=== PATIENT | female | born 1970 | race Caucasian/White ===

== ENCOUNTER 2019-11-03 18:59 | Inpatient (IN) | payer MEDICAID, SELFPAY | END 2019-11-08 12:01 | disposition home or self-care (01) | DRG 280 | PROVIDERS: Admitting Provider Internal Medicine; Emergency Provider Emergency Medicine; Family Provider Nurse Practitioner; Visit Provider Student in an Organized Health Care Education/Training Program | DX: I21.4 Non-ST elevation (NSTEMI) myocardial infarction (principal); I50.33 Acute on chronic diastolic (congestive) heart failure; J96.01 Acute respiratory failure with hypoxia; I16.1 Hypertensive emergency; E87.2 Acidosis; M31.9 Necrotizing vasculopathy, unspecified; I11.0 Hypertensive heart disease with heart failure; F32.9 Major depressive disorder, single episode, unspecified; I70.1 Atherosclerosis of renal artery; E87.5 Hyperkalemia; I73.9 Peripheral vascular disease, unspecified; I25.10 Atherosclerotic heart disease of native coronary artery without angina pectoris; Z23 Encounter for immunization ==

== ENCOUNTER → 2019-11-20 10:39 | Outpatient (BNVA) | payer MEDICAID, SELFPAY | PROVIDERS: Family Provider Nurse Practitioner; PCP Nurse Practitioner; Referring Provider Nurse Practitioner; Visit Provider Nurse Practitioner | DX: I50.33 Acute on chronic diastolic (congestive) heart failure (principal); F41.9 Anxiety disorder, unspecified; F32.9 Major depressive disorder, single episode, unspecified | CPT/HCPCS: 80048 ==

== ENCOUNTER → 2019-11-24 09:02 | Outpatient (BNVA) | payer MEDICAID, SELFPAY | PROVIDERS: Family Provider Nurse Practitioner; PCP Nurse Practitioner; Referring Provider Nurse Practitioner; Visit Provider Internal Medicine Rheumatology | DX: I25.10 Atherosclerotic heart disease of native coronary artery without angina pectoris (principal); Z79.899 Other long term (current) drug therapy; Z11.59 Encounter for screening for other viral diseases; I65.23 Occlusion and stenosis of bilateral carotid arteries; I70.0 Atherosclerosis of aorta; I70.211 Atherosclerosis of native arteries of extremities with intermittent claudication, right leg; K55.069 Acute infarction of intestine, part and extent unspecified | CPT/HCPCS: 36415; 81001; 82570; 83516; 84156; 85651; 86140; 86160; 86235; 86431; 86480; 86704; 86803; 87340; 99205 ==

== ENCOUNTER 2024-06-19 15:46 | Inpatient (IN) | payer MEDICAID, SELFPAY ==
[2024-06-19] VITALS (47 sets, daily range): BP systolic 96–253; BP diastolic 56–110; PULSE 87–169; RESP 10–30; TEMP 36–36.9; O2SAT 90–100; BMI 17.7
--- NOTE | 2024-06-19 16:00 | XRR_ITS ---
PROCEDURE INFORMATION: Exam: XR Chest Exam date and time: 06/19/2024 4:39 PM Age: 54 years old Clinical indication: Pain; Shortness of breath; Chest pressure; Additional info: Chest pain TECHNIQUE: Imaging protocol: Radiologic exam of the chest. Views: 1 view. COMPARISON: CR XR chest 1V [id number] 11/03/2019 7:08 PM FINDINGS: Lungs: Unremarkable. No consolidation. Pleural spaces: Unremarkable. No pleural effusion. No pneumothorax. Heart/Mediastinum: Unremarkable. No cardiomegaly. Bones/joints: [place] rightward midthoracic curvature. XR/XR chest 1V portable [id number] IMPRESSION: No acute findings.
--- NOTE | 2024-06-19 16:02 | ECG_ITS ---
[facility] Test Date: 2024-06-19 Pat Name: Anjali Murrell Department: Room: Gender: Female Accounting Auditor: : 1970 Requested By: Chica Hull Order Number: [id number] Prakash MD: Jose Manuel Brar M.D. Measurements Intervals [place] Rate: 91 P: 5 CO: 156 QRS: 93 QRSD: 86 T: 215 QT: 341 QTc: 421 Interpretive Statements SINUS RHYTHM BORDERLINE RIGHT AXIS DEVIATION [QRS AXIS > 90] ST DEVIATION AND MODERATE T-WAVE ABNORMALITY, CONSIDER ANTEROLATERAL ISCHEMIA [-0.1+ mV T-WAVE IN V3-V6] ST DEVIATION AND MODERATE T-WAVE ABNORMALITY, CONSIDER INFERIOR ISCHEMIA [-0.1+ mV T-WAVE IN II/aVF] Compared to ECG 11/07/2019 16:24:18 Atrial abnormality no longer present Incomplete right bundle-branch block no longer present T-wave abnormality still present Possible ischemia still present Electronically Signed On 06-19-2024 18:37:10 CDT by Jose Manuel Brar M.D. [email or web address].[email or web address]/store/[id number]
--- NOTE | 2024-06-19 16:10 | W.ED.CHESTPA ---
HPI - Chest Pain General: Chief Complaint: Chest Pain Stated Complaint: chest pain Time Seen by Provider: 06/19/24 15:56 History of Present Illness: 54-year-old female with a history of coronary artery disease status post multiple stents in the past, hypertension, hyperlipidemia and depression who presents the emergency room with chest pain. She says it started this morning. Pressure in her left chest that radiates into her left arm and left neck. She says this is just like when she has had heart attacks in the past. No lower extremity swelling. No calf pain. No nausea or vomiting. No abdominal pain. Related Data Home Medications Medication Instructions Recorded Confirmed alprazolam 0.25 mg tablet 0.25 mg PO TID 11/20/19 12/17/19 Previous Rx's Medication Instructions Recorded albuterol sulfate 90 mcg/actuation 2 inh inhalation Q4H PRN shortness 12/17/19 breath activated powder inhaler of breath or wheezing #1 ea amlodipine 10 mg tablet 10 mg PO DAILY #30 tabs 12/17/19 aspirin 81 mg chewable tablet 81 mg PO DAILY #30 tabs 12/17/19 atorvastatin 40 mg tablet 40 mg PO DAILY #30 tabs 12/17/19 citalopram 20 mg tablet 20 mg PO DAILY #30 tabs 12/17/19 clopidogrel 75 mg tablet 75 mg PO DAILY #30 tabs 12/17/19 hydralazine 25 mg tablet 25 mg PO TID #90 tabs 12/17/19 losartan 50 mg tablet 50 mg PO BID #60 tabs 12/17/19 metoprolol tartrate 50 mg tablet 50 mg PO BID #60 tabs 12/17/19 nitroglycerin 0.4 mg sublingual 0.4 mg sublingual Q5M PRN chest 12/17/19 tablet pain #25 tabs Allergies Allergy/AdvReac Type Severity Reaction Status Date / Time No Known Allergies Allergy Verified 12/17/19 11:13 Review of Systems Narrative: Constitutional symptoms: Negative except as documented in HPI. Skin symptoms: Negative except as documented in HPI. Eye symptoms: Negative except as documented in HPI. ENMT symptoms: Negative except as documented in HPI. Respiratory symptoms: Negative except as documented in HPI. Cardiovascular symptoms: Negative except as documented in HPI. Gastrointestinal symptoms: Negative except as documented in HPI. Genitourinary symptoms: Negative except as documented in HPI. Musculoskeletal symptoms: Negative except as documented in HPI. Neurologic symptoms: Negative except as documented in HPI. Psychiatric symptoms: Negative except as documented in HPI. Endocrine symptoms: Negative except as documented in HPI. PFSH ED PFSH: Medical History (Updated 06/19/24 @ 18:33 by Chica Whitlock MD) 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 Atherosclerosis of [place] arteries of extremities with intermittent claudication, right leg Arteriosclerosis of both carotid arteries Hypertension Aortic arch atherosclerosis Anxiety and depression Mixed hyperlipidemia Asthma Patent ductus arteriosus Heart disease Surgical History Hx of bilateral cataract extraction Family History Other CAD (coronary artery disease) Cancer Chronic kidney disease (CKD) Diabetes Family history of premature coronary artery disease Hypertension Lung disease Stroke Denies family history of Clotting disorder Dementia Hyperlipidemia Psychiatric illness Suicide Anesthesia complication Bleeding disorder Social History Smoking and tobacco/nicotine status: never used tobacco/nicotine Second hand smoke exposure: No Alcohol intake: former Substance/Drug Use: current Substance/Drug use frequency: few times a month Adopted: No Caregiver/support person: Yes Lives independently: Yes Household members: spouse Housing: House Marital status: Number of children: 0 Highest education level completed: High School Graduate service: No Current occupational status: unemployed Current occupational exposures/hazards: No Pets and animals: Yes Sexually active: Yes Do you think of yourself as: Straight/Heterosexual Current gender identity: Female Special ran needs: No Agree to transfusion: Yes Physical Exam Narrative: EXAM NARRATIVE: General: Alert, no acute distress. Skin: Warm, dry. Head: Normocephalic, atraumatic. Neck: Supple, trachea midline. Eye: Extraocular movements are intact. Ears, nose, mouth and throat: mucosa moist. Cardiovascular: Regular, Normal peripheral perfusion. Respiratory: Lungs are clear to auscultation, respirations are non-labored, breath sounds are equal, Symmetrical chest wall expansion. Gastrointestinal: Soft, Nontender, Non distended Musculoskeletal: Normal ROM, no deformity. Neurological: Alert and oriented, No focal neurological deficit observed. Psychiatric: Cooperative, appropriate mood & affect. Course Vital Signs: Vital signs: Vital Signs Temperature 98.4 F 08/09/24 15:59 Pulse Rate 97 06/19/24 18:25 Respiratory Rate 28 H 06/19/24 18:25 Blood Pressure 134/77 06/19/24 18:25 Pulse Oximetry 94 06/19/24 18:25 Oxygen Delivery Me thod Room Air 06/19/24 16:45 Oxygen Flow Rate 1 06/19/24 16:39 MDM - Chest Pain Medical Decision Making Differential diagnosis for patient with chest pain includes but is not limited to and based on the above HPI, review of systems and physical exam: Pneumonia. unstable angina. angina. Acute coronary syndrome / FL. Pulmonary embolism. Costochondritis / musculoskeletal. Pleurisy. Pericarditis. Esophageal spasm. Pancreatis. Cholecystitis. Orders placed to evaluate differential diagnosis based on the above differential, HPI and physical exam EKG: Time 1602. Rate 91. Normal sinus rhythm, some mild ST elevation in V1 and V2. ST depression in leads I, 2, V3, V5 V6, no ectopy, normal SC & QRS intervals, This was reviewed and interpreted by myself the ER physician at 1603. I immediately sent this to the software asset management analyst who reviewed it and feels this is not an ST elevation FL. Repeat EKG: Time 1655. Rate 117. Sinus tachycardia, No ST-T changes, no ectopy, normal SC & QRS intervals, This was reviewed and interpreted by myself the ER physician at 1657. Patient had worsening chest pain and so an repeat EKG was performed. Seems to have a deepening of the ST depressions and may be a slight worsening of elevation but still not a STEMI. This was reviewed with the software asset management analyst as well. Patient had become more tachycardic as well Repeat EKG: Time 1749. Rate 170. Atrial fibrillation with rapid ventricular response, No ST-T changes, no ectopy, This was reviewed and interpreted by myself the ER physician at 1751. Patient developed worsening chest pain and tachycardia so a repeat EKG was performed. This was reviewed with the software asset management analyst again. He recommends metoprolol which was given. She converted shortly back to sinus rhythm. Chest pain improved with conversion although she still does have some chest pain. Chest x-ray: No acute process. No infiltrate. No pneumothorax. This was reviewed and interpreted by myself the ER physician. CTA chest with PE protocol: This was ordered at the recommendation of the software asset management analyst. There are patchy areas of focal interstitial prominence in the right lung. This present previously but might be slightly increased. No evidence of PE. She has coronary artery calcifications and atherosclerotic disease involving the aorta. This was reviewed and interpreted by myself the emergency room physician. I also reviewed the radiology report. Lab Review: Laboratory results were reviewed and interpreted by myself the emergency room physician. No leukocytosis. No anemia. Platelets are normal. Renal function is normal at fourteen 0.5. Initial troponin is slightly elevated at 38. Consultation: I consulted Dr. Mixon immediately upon the patient's arrival secondary to an abnormal EKG. He reviewed that and has seen the patient. Ultimately he is taking the patient to the Physician Chief Of Pathology from the emergency room. This is not a STEMI but she is having some EKG changes and continued chest pain. I reviewed the patient's medical record. Reexamination: I have reexamined the patient several times. She was tachycardic and in A-fib with RVR for some time and looked in some distress. She become diaphoretic and pale. This improved and her pain has improved somewhat now. She currently has no increased work of breathing. She is not tachycardic any longer. Her blood pressure has normalized. She was initially quite hypertensive. Her blood pressure has improved some. Assessment and plan: Chest pain Coronary artery disease EKG changes Non-ST elevation myocardial infarction Malignant hypertension A-fib with RVR ?Cardiology has reviewed and is ultimately taken the patient to the Physician Chief Of Pathology. She has received 300 mg of Plavix and 325 chewable aspirin. ? Blood pressure was initially 250 systolic. She received hydralazine for this and has improved blood pressure. ? Patient had an episode of A-fib with RVR that resolved with IV metoprolol. 1 single 5 mg dose. Chest pain improved after her heart rate improved. -I discussed the patient with the hospitalist on-call who is admitting the patient. - Discussed findings and plan with patient. Answered any questions. - All laboratory values were reviewed and interpreted personally by myself, the ER physician - All imaging was reviewed and interpreted personally by myself, the ER physician. - Evaluation and treatment of this problem were appropriate in the emergency setting Critical care -I spent a total of >70 minutes of critical care time managing the patient, independent of any other practitioner. -The time involved in the performance of separately reportable procedures was not counted towards critical care time. Lab Data 06/19/24 16:18 06/19/24 16:18 Radiology Impressions Chest X-Ray 06/19/24 16:00 IMPRESSION: No acute findings. Chest CTA 06/19/24 16:44 IMPRESSION: 1. Patchy areas of focal interstitial prominence in the right lung. A component was present on the prior study but it has overall slightly increased. 2. No evidence for acute pulmonary arterial embolism. 3. Coronary artery calcifications. 4. Atherosclerotic disease involving the aorta and proximal great vessels, somewhat advanced for a patient of this age. 5. Cardiomegaly with left atrial enlargement. Laboratory Results WBC 9.51 10^3/uL (3.29-11.43) 06/19/24 16:18 RBC 4.77 10^6/uL (3.85-5.65) 06/19/24 16:18 Hgb 13.20 g/dL (11.27-16.99) 06/19/24 16:18 Hct 40.6 % (36-47) 06/19/24 16:18 MCV 85.1 fl (85-98) 06/19/24 16:18 MCH 27.7 pg (27-33) 06/19/24 16:18 MCHC 32.5 g/dL (30-55) 06/19/24 16:18 RDW 14.0 % (12.1-15.1) 06/19/24 16:18 Plt Count 298 10^3/cmm (157-399) 06/19/24 16:18 MPV 8.9 fL (7.4-10.4) 06/19/24 16:18 Neut % (Auto) 67.0 % 06/19/24 16:18 Lymph % (Auto) 25.4 % 06/19/24 16:18 [place] % (Auto) 6.1 % 06/19/24 16:18 Eos % (Auto) 0.7 % 06/19/24 16:18 Baso % (Auto) 0.5 % 06/19/24 16:18 Neut # (Auto) 6.36 10^3/uL (1.8-7.7) 06/19/24 16:18 Lymph # (Auto) 2.4 10^3/uL (0.8-4.8) 06/19/24 16:18 [place] # (Auto) 0.6 10^3/uL (0.2-0.9) 06/19/24 16:18 Eos # (Auto) 0.1 10^3/uL (0.0-0.8) 06/19/24 16:18 Baso # (Auto) 0.1 10^3/uL (0.0-0.1) 06/19/24 16:18 Nucleated RBC % (auto) 0 % 06/19/24 16:18 Nucleated RBCs # 0.0 /100WBC 06/19/24 16:18 Sodium 143 mmol/L (136-145) 06/19/24 16:18 Potassium 4.4 mmol/L (3.5-5.1) 06/19/24 16:18 Chloride 101 mmol/L (98-107) 06/19/24 16:18 Carbon Dioxide 30 mmol/L (22-29) H 06/19/24 16:18 Anion Gap 16.4 (5-19) 06/19/24 16:18 BUN 14 mg/dL (6-20) 06/19/24 16:18 Creatinine 0.5 mg/dL (0.5-0.9) 06/19/24 16:18 GFR Calculation 128.6 mL/min (90-130) 06/19/24 16:18 Glucose 82 mg/dL (65-115) 06/19/24 16:18 Calculated Osmolality 296 mOsm/kg (285-295) H 06/19/24 16:18 Lactic Acid 1.2 mmol/L (0.5-2.2) 06/19/24 16:18 Calcium 9.8 mg/dL (8.5-10.5) 06/19/24 16:18 Total Bilirubin 0.2 mg/dL (0.15-1.2) 06/19/24 16:18 AST 29 U/L (0-32) 06/19/24 16:18 ALT 29 U/L (0-33) 06/19/24 16:18 Alkaline Phosphatase 77 U/L (35-105) 06/19/24 16:18 Troponin T Baseline 38 ng/L (0-10) H 06/19/24 16:18 NT-Pro-B Natriuret Pep 3446 pg/mL (0-125) H 06/19/24 16:18 Total Protein 7.6 g/dL (6.6-8.7) 06/19/24 16:18 Albumin 4.3 g/dL (3.5-5.2) 06/19/24 16:18 Globulin 3.3 g/dL (1.3-4.6) 06/19/24 16:18 All radiology interpretation(s) finalized by discharge Discharge Plan Discharge Patient Disposition: Admitted As Inpatient Clinical Impression: Chest pain, Nonspecific ST-T wave electrocardiographic changes, Non-ST elevated myocardial infarction, Atrial fibrillation with rapid ventricular response, Coronary artery disease, Malignant hypertension Condition: Stable Coding Level of Care Code ED Railroad Construction Director for Tasha Dockery
[2024-06-19] MEDS: clopidogrel 300 mg Tablet PO (16:14)
[2024-06-19] MEDS: aspirin 81 mg Chew Tablet 324 MG PO (16:16)
[2024-06-19 16:26] LABS: Basophils # 0.1 10^3/uL (0.0-0.1); Basophils % 0.5 %; Eosinophils # 0.1 10^3/uL (0.0-0.8); Eosinophils % 0.7 %; Hematocrit 40.6 % (36-47); Lymphocytes # 2.4 10^3/uL (0.8-4.8); Lymphocytes % 25.4 %; Mean Corpuscular HGB Conc 32.5 g/dL (30-55); Mean Corpuscular Hemoglobin 27.7 pg (27-33); Mean Corpuscular Volume 85.1 fl (85-98); Mean Platelet Volume 8.9 fL (7.4-10.4); Monocytes # 0.6 10^3/uL (0.2-0.9); Monocytes % 6.1 %; Neutrophils # 6.36 10^3/uL (1.8-7.7); Nucleated Red Blood Cells % 0 %; Platelet Count 298 10^3/cmm (157-399); Red Blood Count 4.77 10^6/uL (3.85-5.65); White Blood Count 9.51 10^3/uL (3.29-11.43)
[2024-06-19] MEDS: hyDRALAzine 20 mg/mL INJ 1 mL IVP ×2 (16:30→16:36)
--- NOTE | 2024-06-19 16:44 | CTR_ITS ---
PROCEDURE INFORMATION: Exam: CTA Chest With Contrast Exam date and time: 06/19/2024 5:38 PM Age: 54 years old Clinical indication: Shortness of breath; Patient HX: SOB with hypoxia and tachycardia; Additional info: Hypoxemia, tachycardia TECHNIQUE: Imaging protocol: Computed tomographic angiography of the chest with contrast. Exam focused on the arteries. 3D rendering (Not supervised by radiologist): MIP and/or 3D reconstructed images were created by the technologist. Radiation optimization: All CT scans at this facility use at least one of these dose optimization techniques: automated exposure control; mA and/or kV adjustment per patient size (includes targeted exams where dose is matched to clinical indication); or iterative reconstruction. Contrast material: OMNI 350; Contrast volume: 53 ml; Contrast route: INTRAVENOUS (IV); COMPARISON: CT angio chest [id number] 05/26/2019 8:16 AM RADIATION DOSE METRICS: Total DLP (mGy-cm): 166.81 FINDINGS: Pulmonary arteries: Normal. No pulmonary emboli. Aorta: Atherosclerotic disease involving the aorta and proximal great vessels, somewhat advanced for a patient of this age. Lungs: Patchy areas of focal interstitial prominence in the right lung. A component was present on the prior study but it has overall slightly increased. Pleural spaces: Unremarkable. No pneumothorax. No pleural effusion. Heart: Cardiomegaly with left atrial enlargement. Coronary arteries: Coronary artery calcifications. Lymph nodes: Unremarkable. No enlarged lymph nodes. Bones/joints: [place] rightward midthoracic curvature. Soft tissues: Unremarkable. CT/CT angio chest PE protcl [id number] IMPRESSION: 1. Patchy areas of focal interstitial prominence in the right lung. A component was present on the prior study but it has overall slightly increased. 2. No evidence for acute pulmonary arterial embolism. 3. Coronary artery calcifications. 4. Atherosclerotic disease involving the aorta and proximal great vessels, somewhat advanced for a patient of this age. 5. Cardiomegaly with left atrial enlargement.
--- NOTE | 2024-06-19 16:55 | ECG_ITS ---
[facility] Test Date: 2024-06-19 Pat Name: Anjali Murrell Department: Room: ICU04 Gender: Female Health/Safety Job Titles: : 1970 Requested By: Chica Hull Order Number: [id number] Prakash MD: Jose Manuel Brar M.D. Measurements Intervals [place] Rate: 117 P: 81 WI: 150 QRS: 99 QRSD: 88 T: 206 QT: 289 QTc: 404 Interpretive Statements SINUS TACHYCARDIA POSSIBLE RIGHT ATRIAL ENLARGEMENT [0.25mV P-WAVE] LEFT ATRIAL ENLARGEMENT [-0.15mV P-WAVE IN V1/V2] BORDERLINE RIGHT AXIS DEVIATION [QRS AXIS > 90] ST DEVIATION AND MODERATE T-WAVE ABNORMALITY, CONSIDER LATERAL ISCHEMIA [-0.1+ mV T-WAVE IN I/aVL/V5/V6] Compared to ECG 06/19/2024 16:02:37 Atrial abnormality now present Sinus rhythm no longer present T-wave abnormality still present Possible ischemia still present Electronically Signed On 06-21-2024 9:11:16 CDT by Jose Manuel Brar M.D. [email or web address] mature adult care unitOcarina Networksupper valley medical center.[employer]/store/NU/[id number]/[id number]
[2024-06-19] MEDS: ondansetron 2 mg/ML SDV 2 mL 4 MG IVP ×2 (17:01→22:38)
[2024-06-19] MEDS: morphine 4 mg/mL SDV 1 mL IVP (17:01)
[2024-06-19 17:02] LABS: Troponin(5th) Baseline 38 ng/L (0-10)
[2024-06-19 17:03] LABS: Lactic Sepsis W/Reflex 1.2 mmol/L (0.5-2.2)
[2024-06-19 17:15] LABS: Alanine Aminotransferase 29 U/L (0-33); Albumin Level 4.3 g/dL (3.5-5.2); Alkaline Phosphatase 77 U/L (35-105); Anion Gap 16.4 (5-19); Aspartate Amino Transferase 29 U/L (0-32); Blood Urea Nitrogen 14 mg/dL (6-20); Calcium 9.8 mg/dL (8.5-10.5); Carbon Dioxide 30 mmol/L (22-29); Chloride 101 mmol/L (98-107); Creatinine Clr Calc Pharmacy 78.2881; Globulin 3.3 g/dL (1.3-4.6); Glomerular Filtration Rate 128.6 mL/min (90-130); Glucose 82 mg/dL (65-115); NT Pro B Type Natriuretic Pept 3446 pg/mL (0-125); Osmolality Calculated 296 mOsm/kg (285-295); Potassium 4.4 mmol/L (3.5-5.1); Sodium 143 mmol/L (136-145); Total Bilirubin 0.2 mg/dL (0.15-1.2); Total Protein 7.6 g/dL (6.6-8.7)
[2024-06-19] MEDS: ondansetron 2 mg/ML SDV 2 mL 8 MG IVP (17:29)
[2024-06-19] MEDS: iohexol 350 mg/mL 500 mL Btl (per mL) IV (17:41)
--- NOTE | 2024-06-19 17:49 | ECG_ITS ---
[facility] Test Date: 2024-06-19 Pat Name: Anjali Murrell Department: Room: Gender: Female Assembly Hand: : 1970 Requested By: Chica Hull Order Number: [id number] Olinda MD: Jose Manuel Brar M.D. Measurements Intervals [place] Rate: 170 P: 0 IN: 0 QRS: 101 QRSD: 93 T: 220 QT: 251 QTc: 423 Interpretive Statements ATRIAL FIBRILLATION WITH RAPID VENTRICULAR RESPONSE RIGHT AXIS DEVIATION [QRS AXIS > 100] MARKED ST DEPRESSION, CONSIDER SUBENDOCARDIAL INJURY [0.2+ mV ST DEPRESSION] Compared to ECG 06/19/2024 16:55:14 ST (T wave) deviation now present Sinus tachycardia no longer present Atrial abnormality no longer present T-wave abnormality no longer present Possible ischemia no longer present Electronically Signed On 06-19-2024 19:00:30 CDT by Jose Manuel Brar M.D. [email or web address].[employer]/store/OM/[id number]/[id number]
--- NOTE | 2024-06-19 17:53 | PC.NURSE ---
pt c/o increased chest pain, numbness to R arm. EKG obtained, HR 171, Dr. Whitlock notified.
[2024-06-19] MEDS: metoprolol tartrate 1 mg/1 mL SDV 5 mL 5 MG IVP (18:00)
--- NOTE | 2024-06-19 18:28 | P.CONIM_ITS ---
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 She has been having on and off chest pain since January. Today pain got worse in the morning. Some radiation to neck. BP was very high over 220mmHg Systolic. EKG showing non specific changes. In the ER she went into afib with RVR. After receiving metoprolol, converted back to NSR. Feeling short of breath too. Review of Systems 2 General: Reports: 10 or more systems reviewed and unremarkable except in HPI and below Medications/Allergies Home Medications Medication Instructions Recorded Confirmed Last Taken Type alprazolam 0.25 mg tablet 0.25 mg PO TID 11/20/19 12/17/19 Unknown History albuterol sulfate 90 mcg/actuation 2 inh inhalation Q4H PRN shortness 12/17/19 12/17/19 Unknown Rx breath activated powder inhaler of breath or wheezing #1 ea amlodipine 10 mg tablet 10 mg PO DAILY #30 tabs 12/17/19 12/17/19 Unknown Rx aspirin 81 mg chewable tablet 81 mg PO DAILY #30 tabs 12/17/19 12/17/19 Unknown Rx atorvastatin 40 mg tablet 40 mg PO DAILY #30 tabs 12/17/19 12/17/19 Unknown Rx citalopram 20 mg tablet 20 mg PO DAILY #30 tabs 12/17/19 12/17/19 Unknown Rx clopidogrel 75 mg tablet 75 mg PO DAILY #30 tabs 12/17/19 12/17/19 Unknown Rx hydralazine 25 mg tablet 25 mg PO TID #90 tabs 12/17/19 12/17/19 Unknown Rx losartan 50 mg tablet 50 mg PO BID #60 tabs 12/17/19 12/17/19 Unknown Rx metoprolol tartrate 50 mg tablet 50 mg PO BID #60 tabs 12/17/19 12/17/19 Unknown Rx nitroglycerin 0.4 mg sublingual 0.4 mg sublingual Q5M PRN chest 12/17/19 12/17/19 Unknown Rx tablet pain #25 tabs Allergies Allergy/AdvReac Type Severity Reaction Status Date / Time No Known Allergies Allergy Verified 12/17/19 11:13 Current Medications Generic Name Dose Route Start Last Admin Trade Name Freq PRN Reason Stop Dose Admin Metoprolol Tartrate 5 mg 06/19/24 17:55 06/19/24 18:00 Metoprolol Tartrate 1 Mg/1 Ml Sdv 5 Ml IVP 5 mg Q4H PRN Administration tachycardia PFSH Acute 2 PFSH: Medical History 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 Atherosclerosis of [place] arteries of extremities with intermittent claudication, right leg Arteriosclerosis of both carotid arteries Hypertension Aortic arch atherosclerosis Anxiety and depression Mixed hyperlipidemia Asthma Patent ductus arteriosus Heart disease Surgical History Hx of bilateral cataract extraction Family History Other CAD (coronary artery disease) Cancer Chronic kidney disease (CKD) Diabetes Family history of premature coronary artery disease Hypertension Lung disease Stroke Denies family history of Clotting disorder Dementia Hyperlipidemia Psychiatric illness Suicide Anesthesia complication Bleeding disorder Social History Smoking and tobacco/nicotine status: never used tobacco/nicotine Second hand smoke exposure: No Alcohol intake: former Substance/Drug Use: current Substance/Drug use frequency: few times a month Adopted: No Caregiver/support person: Yes Lives independently: Yes Household members: spouse Housing: House Marital status: Number of children: 0 Highest education level completed: High School Graduate service: No Current occupational status: unemployed Current occupational exposures/hazards: No Pets and animals: Yes Sexually active: Yes Do you think of yourself as: Straight/Heterosexual Current gender identity: Female Special ran needs: No Agree to transfusion: Yes Vitals/I&O/Wt Last Vital Signs Temp 98.4 F 06/19/24 15:59 Pulse 166 H 06/19/24 17:45 Resp 20 H 06/19/24 17:06 BP 143/77 06/19/24 17:45 Pulse Ox 97 06/19/24 17:45 O2 Del Method Room Air 06/19/24 16:45 O2 Flow Rate 1 06/19/24 16:39 Weight last 48 hrs Weight 85 lb Physical Exam 2 Const: COMMON NORMALS: no acute distress, patient oriented x3 and alert Resp: COMMON NORMALS: normal respiratory effort and clear to auscultation bilaterally AUSCULTATION: clear to auscultation bilaterally Cardio: COMMON NORMALS: regular rate, regular rhythm and No murmurs present (Cardio) RATE: regular rate RHYTHM: regular rhythm Extremity: GENERAL: No edema Neuro: COMMON NORMALS: patient oriented x3 SENSORIUM/ORIENTATION: Yes alert Data 06/20/24 02:45 06/20/24 02:45 A&P Assessment and plan (1) Chest pain: (2) Hypertension: (3) Mixed hyperlipidemia: (4) Peripheral arterial disease: (5) Atrial fibrillation: Plan Patient has typical features of chest pain. However in the setting of tachycardia and hypertensive urgency/emergency. Initial troponin is elevated but no significant uptrend at 2 hours. Went into brief episode of atrial fibrillation in ER too. Now back in NSR. As she is having ongoing chest discomfort, we will proceed with coronary angiogram once PE ruled out on CTA Continue aspirin and anticoagulation Order echocardiogram Trend troponins NPO Thank you for involving us with care of this patient. We will continue to follow. Consult Attestations 2 Medical Necessity Statement: Care expected to cross 2 midnights. Coding Level of Care Code Acute Code for [facility] Fwd Diagnoses Chest pain R07.9 Hypertension I10 Mixed hyperlipidemia E78.2 Peripheral arterial disease I73.9 Atrial fibrillation I48.91
--- NOTE | 2024-06-19 18:33 | XACV_ITS ---
Exam Room: [facility] Ht: 147 cm Wt: 39 kg BSA: 1.25 m2 Gender: Female : 1970 Any Known Allergies: No known allergies Exam Priority: Routine Procedure(s): Procedure Description: Diagnostic procedure Procedure Description: Miscellaneous Procedure Description: ACT Procedure Description: Coronary Angiography Diagnostic Cath Status: Urgent Diagnostic Findings * INDICATION: Patient has presented with symptoms concerning for unstable angina but in setting of hypertensive urgency. Has been having significant on going chest pain. After detailed discussion with patient regarding risks and benefits of the coronary angiogram, shared decision made to proceed with coronary angiogram with possible PCI. * Left Main appears very short. Almost appear to have separate ostia for LAD and left circumflex arteries. Grossly no significant stenosis. * Left Anterior Descending has mild luminal irregularities. 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 Has ostial stent as well making engagement of the artery very difficult. Grossly appear patent. * Proximal Circumflex: significant 70- 80% stenosis, MARCIA: 3 flow. * Patient has a small sized aorta. Difficult to engage coronary arteries. * Coronary angiography shows right dominance. Conclusions 1. Significant ostial to proximal left circumflex artery stenosis. Plan for medical therapy at this time as stenting it can compromise flow in LAD territory.. 2. 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 Also has severe PAD with very small sized peripheral vasculature. Recommendations * If patient continues having chest discomfort episodes, can transfer to a center with coronary CTA availability. This will confirm patency of RCA stents. Also will better assess if patient has separate ostia of LAD and left circumflex artery in which case, PCI of circumflex artery will be safe to be performed. * Blood pressure control. Interventional RX Recommendation: medical therapy and/or counseling Diagnostic RX Recommendation: medical therapy and/or counseling Pressures Phase:Rest AO : 135 / 92 ( 114 ) @ 3:31:09 PM 136 / 94 ( 115 ) @ 3:31:09 PM 158 / 111 ( 135 ) @ 3:31:09 PM 199 / 106 ( 165 ) @ 3:31:09 PM Clinical Evaluation EBL: 5mL-10mL Procedural Details Pre-Procedure Time Out. Identified patient by full name and date of as verbalized by the patient/guarantor. Does the consent match the physician's order: Yes. Accurate & Complete Informed Consent: Yes. Inpatient/Outpatient History & Physical on Chart: Yes. If H&P is completed, is and addenduem needed: No; If yes, is the addendum complete: N/A. Visualize and Verify Site with Patient/Guarantor: N/A. Relevant Radiology Images available: Yes. Pre-op teaching completed and patient verbalized understanding. The risks, benefits, and alternatives of sedation and/or procedure were discussed by physician. The patient agrees to continue. Procedure started. [facility] Clinical Fraility Score: 3: Managing Well. 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 Chest Pain Symptom Assessment: Atypical Angina. Correct patient, site and procedure confirmed by cath team. Current diagnosis: NSTEMI. PERRLA. Strong, equal hand lap runner bilaterally. Lungs clear x 5 lobes. IV Site on Arrival: 18 gauge in the left anticubital. IV Fluids: 0.9% NaCl at KVO. 0 mL infused prior to optical laboratory technician. Oxygen started at 2liters/min via nasal canula. bilateral groins was prepped with chloroprep then draped in the usual sterile fashion. Baseline sample Acquired. HR: 92 BPM. Physician arrived. Current Diagnosis : NSTEMI. Physician scrubbed in. Lidocaine 1% infiltrated to the right groin. Ultrasound being used to obtain access. Arterial access obtained with micropuncture set. Oxygen turned up to 4liters. Wire unable to advance. Wire and needle out. Lidocaine 1% infiltrated to the left groin. Arterial access obtained with micropuncture set. Wire unable to advance. Wire and needle out. Arterial access obtained with micropuncture set. 5Fr dilator inserted OTW. Dilator out OTW. 6Fr sheath inserted OTW but unable to advance. 5Fr glidesheath inserted OTW. Sheath removed OTW. A 5 brazilian JL4 catheter in over wire. Catheter removed over the exchange wire. Multiple views taken of left coronary artery. Immediate Pre-Procedure Time Out. Correct Patient: Yes; Correct Procedure: Yes; Correct Site: Yes; Correct Patient Position: Yes; Correct Supplies: Yes; Dried Flammable Prep: Yes; Blood Products Available: N/A;. Catheter removed over the exchange wire. A 5 brazilian JR4 catheter in over wire. Catheter removed over the exchange wire. A 5 brazilian JR3.5 catheter in over wire. Multiple views taken of right coronary artery. Catheter removed over the exchange wire. A 5 brazilian AL1 catheter in over wire. Multiple views taken of left coronary artery. Catheter removed over the exchange wire. A 5 brazilian MPA1 catheter in over wire. Catheter removed over the exchange wire. A 5 brazilian IM catheter in over wire. The patient placed on a non rebreather mask. Catheter removed over the exchange wire. A 5 brazilian JR4 catheter in over wire. Catheter removed over the exchange wire. Physician review of cine films. A Right femoral angiogram was performed to determine safe placement of closure device. ACT drawn. Results 155 seconds. Therapeutic limits - pre-heparin administration 90-150 seconds and monitoring heparin during a vascular procedure >250 seconds. A Suture was successful obtaining hemostatsis at the Left Femoral artery insertion site. Sheath(s) sutured into position with 2-0 silk and sterile 4x4's and Op-site applied over the site. No oozing or signs and symptoms of hematoma noted. Arterial sheath flushed and connected to tranducer and pressure bag with heparinized saline. Post Procedure: Pulses reassessed and unchanged. PERRLA. Strong, equal hand lap runner bilaterally. No VTE prophylaxis required. Medication's Wasted: Lidocaine 1% = 13 mL. Medication's Wasted: Other = Fentanyl 100mcg Versed 1 mg. Medication's Wasted: Other = Hydralazine 10 mg. Total IV fluids: 96 mL. Vital chart was stopped. Complications: None. Estimated blood loss: 5mL-10mL. Responsiveness - Normal response to verbal stimuli; alert and oriented, PERRLA. Airway - Unaffected, no intervention required; spontaneous ventilation. Circulation: W/N/L, pulses unchanged. Nausea/Vomiting: No. Procedure completed. Patient transferred by bed to ICU. Access Site Site: Left Femoral artery Sheath Size: 6 Fr Hemostasis Method: Suture Hemostasis Success: Successful Procedure Medications Start: 7:01 PM Stop: 7:01 PM Medication: Versed Amount: 1 mg Route: I.V. Start: 7:01 PM Stop: 7:01 PM Medication: Fentanyl Amount: 50 mcg Route: I.V. Start: 7:06 PM Stop: 7:06 PM Medication: Versed Amount: 1 mg Route: I.V. Start: 7:06 PM Stop: 7:06 PM Medication: Fentanyl Amount: 50 mcg Route: I.V. Start: 7:47 PM Stop: 7:47 PM Medication: Versed Amount: 1 mg Route: I.V. Start: 7:49 PM Stop: 7:49 PM Medication: Benadryl Amount: 50 mg Route: I.V. Start: 7:54 PM Stop: 7:54 PM Medication: Versed Amount: 1 mg Route: I.V. Start: 7:57 PM Stop: 7:57 PM Medication: Lopressor (metoprolol) Amount: 5 mg Route: I.V. Start: 8:22 PM Stop: 8:22 PM Medication: Hydralazine Amount: 10 mg Route: I.V. I, the attending physician, have reviewed and verified all procedure medications. Yes, all medications given per verbal order History/Risk Factors Hypertension: No Dyslipidemia: No Peripheral Arterial Disease (PAD): No Myocardial Infarction (ME): No Obesity: No Renal Disease: No Prior Interventions PCI: No CABG: No Valve Surgery: No Report Signatures Finalized by Jose Manuel Brar MD on 06/22/2024 05:32 PM
[2024-06-19] MEDS: sodium chloride 0.9% 1,000 ML 50 ML IV (18:40)
--- NOTE | 2024-06-19 18:44 | P.HP_ITS ---
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 She presents to the ER today with ongoing chest pain radiating to the right arm along with neck but started acutely today morning. As per the patient she has been having on and off chest pain especially on exertion since January which has been getting worse gradually for which she is supposed to see her PCP today. She also complains of pain in her bilateral thighs especially on walking which is relieved on sitting down. She complains of elevated blood pressures in the right arm as compared to the left arm with difference of around 100 mmHg. Symptoms today were associated with nausea without any episodes of vomiting. She was concerned because the pain today was similar to the pain back in 2019 when she had non-ST elevation MN. In the ER she was found to have hypertensive emergency with systolic blood pressure of more than 200 mmHg for which she received 20 of IV hydralazine after which she went into tachycardia with heart rate of around 180 with concerns for SVT she was given 5 of IV metoprolol. Currently on examination patient is comfortable with mild retrosternal chest pain with heart rate of around 100 bpm the blood pressure of 130 /60 mmHg. Review of Systems 2 General: Reports: 10 or more systems reviewed and unremarkable except in HPI and below Const: Denies: fever(s), chills, body aches, change in appetite, change in weight, malaise, night sweats, diaphoresis, change in sleep pattern, daytime sleepiness or snoring Eyes: Denies: change in vision, blurry vision, photophobia, eye discomfort or eye discharge ENMT: Denies: throat pain, enlarged tonsils, hoarseness, mouth pain, oral sores, dry mouth, tinnitus, nasal congestion or post nasal drip Card: Denies: chest pain, palpitations, irregular heart rhythm, edema, swelling of feet/ankles, lightheadedness, syncope, pre-syncope, dyspnea on exertion, orthopnea, leg pain with exertion or acrocyanosis Resp: Denies: dyspnea, productive cough, non-productive cough, wheezing, stridor, pain on inspiration, change in phlegm color, hemoptysis or chest congestion GI: Denies: abdominal pain, nausea, vomiting, hematemesis, coffee ground emesis, dysphagia, heartburn, diarrhea, constipation, bloating, GI cramping, change in bowel habits, pain on defecation, hematochezia or melena : Denies: flank pain, dysuria, urinary frequency, urinary urgency, urinary hesitancy, nocturia or hematuria Musc: Denies: neck pain, back pain, extremity pain, joint pain, joint swelling, joint redness, joint stiffness or limited range of motion Neuro: Denies: headache(s), numbness in extremities, weakness in extremities, sensory changes, lack of coordination, difficulty walking, frequent falls, dizziness, vertigo, confusion, Slurred speech present, difficulty communicating thoughts or seizure-like activity Psych: Denies: anxiety, depression, mood swings, panic attacks, hopelessness or irritability Endo: Denies: polyuria, polydipsia, tired all the time, cold intolerance, excessive sweating, flushing or heat intolerance Kevin/Lymph: Denies: easy bruising or easy bleeding All/Imm: Denies: tongue swelling, facial swelling or acute wheezing Medications/Allergies Home Medications Medication Instructions Recorded Confirmed Last Taken Type alprazolam 0.25 mg tablet 0.25 mg PO TID 11/20/19 12/17/19 Unknown History albuterol sulfate 90 mcg/actuation 2 inh inhalation Q4H PRN shortness 12/17/19 12/17/19 Unknown Rx breath activated powder inhaler of breath or wheezing #1 ea amlodipine 10 mg tablet 10 mg PO DAILY #30 tabs 12/17/19 12/17/19 Unknown Rx aspirin 81 mg chewable tablet 81 mg PO DAILY #30 tabs 12/17/19 12/17/19 Unknown Rx atorvastatin 40 mg tablet 40 mg PO DAILY #30 tabs 12/17/19 12/17/19 Unknown Rx citalopram 20 mg tablet 20 mg PO DAILY #30 tabs 12/17/19 12/17/19 Unknown Rx clopidogrel 75 mg tablet 75 mg PO DAILY #30 tabs 12/17/19 12/17/19 Unknown Rx hydralazine 25 mg tablet 25 mg PO TID #90 tabs 12/17/19 12/17/19 Unknown Rx losartan 50 mg tablet 50 mg PO BID #60 tabs 12/17/19 12/17/19 Unknown Rx metoprolol tartrate 50 mg tablet 50 mg PO BID #60 tabs 12/17/19 12/17/19 Unknown Rx nitroglycerin 0.4 mg sublingual 0.4 mg sublingual Q5M PRN chest 12/17/19 12/17/19 Unknown Rx tablet pain #25 tabs Allergies Allergy/AdvReac Type Severity Reaction Status Date / Time No Known Allergies Allergy Verified 12/17/19 11:13 PFSH Acute 2 PFSH: Medical History (Updated 06/19/24 @ 19:22 by Jeremy Durán MD) 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 Atherosclerosis of [place] arteries of extremities with intermittent claudication, right leg Arteriosclerosis of both carotid arteries Hypertension Aortic arch atherosclerosis Anxiety and depression Mixed hyperlipidemia Asthma Patent ductus arteriosus Heart disease Surgical History Hx of bilateral cataract extraction Family History Other CAD (coronary artery disease) Cancer Chronic kidney disease (CKD) Diabetes Family history of premature coronary artery disease Hypertension Lung disease Stroke Denies family history of Clotting disorder Dementia Hyperlipidemia Psychiatric illness Suicide Anesthesia complication Bleeding disorder Social History Smoking and tobacco/nicotine status: never used tobacco/nicotine Second hand smoke exposure: No Alcohol intake: former Substance/Drug Use: current Substance/Drug use frequency: few times a month Adopted: No Caregiver/support person: Yes Lives independently: Yes Household members: spouse Housing: House Marital status: Number of children: 0 Highest education level completed: High School Graduate service: No Current occupational status: unemployed Current occupational exposures/hazards: No Pets and animals: Yes Sexually active: Yes Do you think of yourself as: Straight/Heterosexual Current gender identity: Female Special ran needs: No Agree to transfusion: Yes Vitals/I&O/Wt Last Vital Signs Temp 98.4 F 06/19/24 15:59 Pulse 97 06/19/24 18:25 Resp 28 H 06/19/24 18:25 BP 129/76 06/19/24 18:30 Pulse Ox 94 06/19/24 18:25 O2 Del Method Room Air 06/19/24 16:45 O2 Flow Rate 1 06/19/24 16:39 Weight last 48 hrs Weight 38.555 kg Physical Exam 2 Narrative: General: No acute distress, AO x3 HEENT: PERRLA, pupils bilaterally equal and reactive Chest: Normal vesicular breath sounds, no added sounds, equal good air entry bilaterally CVS: S1-S2 regular, no murmurs, no tachycardia, no gallops, no rubs Abdomen: Soft, nontender, no organomegaly, bowel sounds present Neuro: No focal deficits, no facial deformity, AO x3, power 5/5 in all limbs Data 06/19/24 16:18 06/19/24 16:18 A&P Assessment and plan (1) Chest pain: With a history of peripheral arterial disease, 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 Typical chest pain for now. Troponin mildly elevated in the ER. Cardiology consult in the ER. Plan for cardiac angiogram. CT done in the ER negative for pulmonary embolism. Check A1c, lipid panel, echocardiogram. Continue with home dose of aspirin, statin, Plavix, metoprolol. N.p.o. for now. (2) Coronary artery disease: (3) Arteriosclerotic cardiovascular disease: History of renal artery stenosis, atherosclerosis of the aortic arch, difference in blood pressure of right arm and left arm of 100 mmHg. Continue to monitor. HOOD workup in the past negative. (4) Malignant hypertension: Goal blood pressure less than 140/90 mmHg. Blood pressure good 200 mmHg in the ER on presentation. Symptomatic with chest pain. For now continue with home dose of amlodipine, hydralazine, metoprolol. Holding off on losartan given history of renal artery stenosis in the past, CTA done in the ER with cardiac angiogram for now. Will monitor blood pressures and uptitrate medications accordingly. (5) SVT (supraventricular tachycardia): Telemetry. Continue with home dose of metoprolol. Continue to monitor. (6) Occlusion of superior mesenteric artery: (7) Peripheral arterial disease: Complaining of claudication of bilateral lower limb. Will check bilateral lower limb NAOMY. Plan CT of the chest showing showing focal interstitial prominence of the right lung. Patient denies any difficulty in breathing. Will place check for respiratory viral panel. Continue other chronic medications including Xanax, Celexa. CODE STATUS: Full code. will be DPOA. Lovenox for DVT prophylaxis Protonix OPD prophylaxis N.p.o. for now, cardiac diet in AM. Attestations 2 Medical Necessity Statement*: Admission for more than 2 midnights for management of malignant hypertension, typical chest pain in a patient with history of CAD, peripheral vascular disease Critical Care Time: The high probability of a clinically significant, sudden or life threatening deterioration of the patient's [cardiac] system(s) required my full and direct attention, intervention and personal management. The critical care time is as shown. This time is in addition to time spent performing any reported procedures but includes the following: [x] Data and vital sign review and interpretation [x] Patient assessment, examination and intervention [x] Documentation [x] Medication orders and management Critical Care Time (min): 60 Coding Level of Care Code Critical Care >/= 30 minutes Critical care time (in minutes): 60 The high probability of a clinically significant, sudden or life threatening deterioration, as referenced in this documentation, required my full and direct attention, intervention and personal management. The critical care time shown is in addition to time spent performing any reported separately billable procedures and includes the following: [x] Data and vital sign review and interpretation [x ] Patient assessment, examination and intervention [x] Medication orders and management [x] Patient/Family updates as able [x] Care Coordination and Documentation. Diagnoses Chest pain R07.9 Coronary artery disease I25.10 Arteriosclerotic cardiovascular disease I25.10 Malignant hypertension I10 SVT (supraventricular tachycardia) I47.10 Occlusion of superior mesenteric artery K55.069 Peripheral arterial disease I73.9
--- NOTE | 2024-06-19 18:59 | W.PM.OPSUD ---
Surgery/Procedure H&P Update DATE OF PROCEDURE: June 19, 2024 DATE H&P PERFORMED: 06/19/24 H&P UPDATE INFORMATION: I have reviewed H&P completed within last 30 days, I have examined patient prior to procedure and No changes to prior documentation PREOP DIAGNOSIS: Worsening angina PRIMARY INDICATION FOR PROCEDURE: Worsening angina PLANNED PROCEDURE: Left heart cath with possible PCI PATIENT REASSESSED PRIOR TO SEDATION, WITH NO CHANGE NOTED: Yes PHYSICAL EXAM: alert, oriented x 3, clear to auscultation bilaterally and regular rate & rhythm AIRWAY EVAL/ANESTHESIA PLAN: normal airway, ASA III, Local Anesthesia, Risks, benefits & alternatives of sedation and/or procedure discussed and Patient agrees to continue as planned ADDITIONAL INFORMATION: Moderate sedation
[2024-06-19 19:00] LABS: Troponin 5 2HR 36.62 ng/L (0-10)
[2024-06-19 19:02] LABS: Troponin 5 2HR Delta -1.38 ABS# (0-10)
[2024-06-19 19:46] LABS: Procalcitonin 0.04 ng/mL (0-0.5); Vitamin B12 403 pg/mL (232-1245)
[2024-06-19 19:57] LABS: Iron 51 ug/dL (37-145); Percent Saturation 14.7 % (20-50); Total Iron Binding Capacity 346 mcg/dl; Unsaturated Iron Binding 295 ug/dL (112-347)
--- NOTE | 2024-06-19 21:54 | ECG_ITS ---
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 Measurements Intervals [place] Rate: 101 P: 87 MN: 160 QRS: 92 QRSD: 94 T: -26 QT: 378 QTc: 492 Interpretive Statements SINUS TACHYCARDIA BORDERLINE RIGHT AXIS DEVIATION [QRS AXIS > 90] ST DEVIATION AND MODERATE T-WAVE ABNORMALITY, CONSIDER INFERIOR ISCHEMIA [-0.1+ mV T-WAVE IN II/aVF] Compared to ECG 06/19/2024 17:49:52 Early repolarization now present T-wave abnormality now present Possible ischemia now present Atrial fibrillation no longer present ST (T wave) deviation still present Electronically Signed On 06-20-2024 8:00:26 CDT by Jose Manuel Brar M.D. [email or web address]
--- NOTE | 2024-06-19 22:00 | PC.NURSE ---
Addendum entered by Anahi Rodgers RN 06/20/24 01:27: PO xanax and hydralazine held due to patient's lethargy and inability to take PO medications. Dr. Crowe notified. Original Note: Sheath Removal Patient arrived to unit at 2035. Upon assessment, patient's respiratory pattern bradypneic with an oxygen saturation of 71% while patient lethargic and responsive only to pressure. 15 L nonrebreather placed on patient with a resulting improved oxygen saturation of 98%. Left sheath in place, not hooked to pressure bag. laboratory machinist PHILLIP Connelly stated to remove sheath as soon as possible. No ptt ordered/resulted. ACT in paper chart [address] Brar contacted; verification received to remove sheath. Sheath removed at 2114. 15 minutes pressure applied to the groin, bleeding still noted. 20 minutes additional pressure applied. No bleeding noted, no formation of hematoma noted. All vital signs stable. Dressing applied. Dr. Crowe on unit and notified of patient's lingering lethargy. No new order received.
[2024-06-19] MEDS: pantoprazole 40 mg SDV IVP (22:25)
[2024-06-19 22:52] LABS: Troponin 5 6HR 165.8 ng/L (0-10); Troponin 5 6HR Delta 127.8 ng/L (0-12)
[2024-06-19 23:09] LABS: T3 Free 3.3 PG/ML (2.0-4.4)
[2024-06-20] VITALS (118 sets, daily range): BP systolic 108–163; BP diastolic 49–106; PULSE 77–122; RESP 13–34; TEMP 36.2–36.7; O2SAT 83–100; BMI 19.3
[2024-06-20 01:05] LABS: Charge for UA Resulting for Rev
[2024-06-20 01:08] LABS: Bilirubin Urine Negative (Negative); Blood Urine Negative (Negative); Glucose Urine UA Negative (Normal); Ketones Urine Negative (Negative); Leukocyte Esterase Urine Negative (Negative); Nitrate Urine Negative (Negative); Protein Urine Negative (Negative); Urine Appearance Clear (CLEAR); Urine Color Yellow (Yellow); Urobilinogen Urine 0.2 mg/dL (Negative); pH Urine 7.5 (5-7)
[2024-06-20 01:13] LABS: Bacteria Urine None Seen /hpf; Hyaline Casts Urine 0-4 /lpf; RBC Urine 0-2 /hpf (0-2); Squamous Epithelial Cell Urine 0-5 /hpf (0-5); WBC Urine 0-5 /hpf (0-5)
[2024-06-20 01:16] LABS: Specific Gravity, Urine 1.076 (1.005-1.030)
[2024-06-20 03:26] LABS: Basophils % 0.2 %; Hematocrit 39.9 % (36-47); Lymphocytes # 0.8 10^3/uL (0.8-4.8); Lymphocytes % 4.8 %; Mean Corpuscular HGB Conc 32.1 g/dL (30-55); Mean Corpuscular Hemoglobin 27.7 pg (27-33); Mean Corpuscular Volume 86.4 fl (85-98); Mean Platelet Volume 9.4 fL (7.4-10.4); Monocytes # 0.5 10^3/uL (0.2-0.9); Neutrophils # 16.13 10^3/uL (1.8-7.7); Neutrophils % 91.6 %; Nucleated Red Blood Cells % 0 %; Platelet Count 358 10^3/cmm (157-399); Red Blood Count 4.62 10^6/uL (3.85-5.65); Red Cell Distribution Width 14.3 % (12.1-15.1)
[2024-06-20 03:51] LABS: Alanine Aminotransferase 31 U/L (0-33); Albumin Level 4.2 g/dL (3.5-5.2); Alkaline Phosphatase 80 U/L (35-105); Anion Gap 17.3 (5-19); Aspartate Amino Transferase 33 U/L (0-32); Blood Urea Nitrogen 11 mg/dL (6-20); Calcium 9.3 mg/dL (8.5-10.5); Carbon Dioxide 24 mmol/L (22-29); Chloride 101 mmol/L (98-107); Cholesterol 273 mg/dL (0-200); Globulin 3.7 g/dL (1.3-4.6); Glomerular Filtration Rate 128.6 mL/min (90-130); Glucose 129 mg/dL (65-115); HDL Cholesterol 78 mg/dL (60-100); LDL Cholesterol Calculated 165 mg/dL (50-129); LDL HDL Ratio 2.12 RATIO (0.00-3.22); Magnesium 1.9 mg/dL (1.7-2.3); Osmolality Calculated 287 mOsm/kg (285-295); Phosphorus 4.2 mg/dL (2.5-4.5); Potassium 4.3 mmol/L (3.5-5.1); Sodium 138 mmol/L (136-145); Total Bilirubin 0.2 mg/dL (0.15-1.2); Total Protein 7.9 g/dL (6.6-8.7); Triglycerides 152 mg/dL (0-150)
[2024-06-20 03:56] LABS: Estmated Average Glucose 111; Hemoglobin A1C 5.5 % (4.0-6.0)
[2024-06-20 04:16] LABS: Folate Level > 20.0 ng/mL (4.8-37.3)
[2024-06-20 05:13] LABS: Adenovirus Not Detected (NOT DETECT); Chlamydia Pneumoniae Not Detected (NOT DETECT); Coronavirus 229E,HKU1,NL63,OC4 Not Detected (NOT DETECT); Human Metapneumovirus Not Detected (NOT DETECT); Human Rhinovirus/Enterovirus Not Detected (NOT DETECT); Influenza A Not Detected (NOT DETECT); Influenza A H1 Not Detected (NOT DETECT); Influenza A H1-2009 Not Detected (NOT DETECT); Influenza A H3 Not Detected (NOT DETECT); Influenza B Not Detected (NOT DETECT); Mycoplasma Pneumoniae Not Detected (NOT DETECT); Parainfluenza Virus Type 1 Not Detected (NOT DETECT); Parainfluenza Virus Type 2 Not Detected (NOT DETECT); Parainfluenza Virus Type 3 Not Detected (NOT DETECT); Parainfluenza Virus Type 4 Not Detected (NOT DETECT); Respiratory Syncytial Virus A Not Detected (NOT DETECT); Respiratory Syncytial Virus B Not Detected (NOT DETECT); SARS-COV-2 Not Detected (NOT DETECT)
[2024-06-20] MEDS: enoxaparin 40 mg/0.4 mL Syringe SUBCUT ×2 (06:33→17:12)
--- NOTE | 2024-06-20 07:18 | PM.MISC ---
Miscellaneous Note Purpose of Documentation: Brief procedure note Note: Patient has small sized aorta with anomalous origin of coronary arteries. Has severe PAD. With difficulty and using ultrasound guidance we were able to obtain access. After multiple catheter exchanges were able to engage left coronary system. Very short left main/almost separate origin of the LCX/LAD. Ostial to proximal left circumflex artery has a significant 80% stenosis. Distally vessel has diffuse disease LAD is patent. RCA has anomalous origin with ostial stent hanging in aorta, Could not be engaged selectively. Grossly patent. If patient continues having chest pain after blood pressure/ heart rate control, can consider transfer to a center with coronary CTA availability. This will confirm no significant stenosis of the RCA and also help in planning ostial left circumflex artery stenting as stent placement can compromise LAD patency. Femoral angiogram showed very small sized peripheral artery.
--- NOTE | 2024-06-20 08:42 | XRR_ITS ---
PROCEDURE INFORMATION: Exam: XR Chest Exam date and time: 06/20/2024 4:48 PM Age: 54 years old Clinical indication: Cough; Patient HX: Chest pain TECHNIQUE: Imaging protocol: Radiologic exam of the chest. Views: 1 view. COMPARISON: CT angio chest PE protcl [id number] 06/19/2024 5:38 PM FINDINGS: Lungs: New bilateral airspace opacities, more pronounced in the right lower lung zone. Pleural spaces: Small right pleural effusion. Heart/Mediastinum: Mild cardiomegaly. Bones/joints: Curvature of the thoracic spine convex to the right. Mild degenerative disease of bilateral acromioclavicular joints. XR/XR chest 1V portable [id number] IMPRESSION: New bilateral alveolar opacities that might represent alveolar edema or pneumonia.
[2024-06-20] MEDS: atorvastatin 40 mg Tablet PO (09:08)
[2024-06-20] MEDS: metoprolol tartrate 50 mg Tablet PO (09:08)
[2024-06-20] MEDS: aspirin 81 mg Chew Tablet PO (09:08)
[2024-06-20] MEDS: citalopram 20 mg Tablet PO (09:08)
[2024-06-20] MEDS: hyDRALAzine 25 mg Tablet PO ×2 (09:08→15:29)
[2024-06-20] MEDS: ALPRAZolam 0.5 mg Tablet 0.25 MG PO ×2 (09:09→17:12)
[2024-06-20] MEDS: clopidogrel 75 mg Tablet PO (09:09)
[2024-06-20] MEDS: amlodipine 10 mg Tablet PO (09:09)
[2024-06-20] MEDS: budesonide 0.5 mg/2 mL Neb INHALATION ×2 (10:12→21:35)
[2024-06-20] MEDS: levalbuterol 0.63 mg/3 mL Neb INHALATION ×3 (10:12→21:35)
[2024-06-20 10:38] LABS: Troponin T (5th) Once 227 ng/L (0-10)
--- NOTE | 2024-06-20 11:01 | PC.NURSE ---
awaken and answering questions very emotional this am and related headache then arm pain in lower right arm and wrist, tearful refused to eat am breakfast taking o2 off sats not reading accurately as pvd, disease with normal sats reading 99 , doctor here aware talked to sister this am
--- NOTE | 2024-06-20 13:11 | P.PN_ITS ---
Subjective 2 Subjective: No acute events overnight. Today morning patient seen few times during the day. When seen first patient was emotional and crying. She has been complaining of on and off right arm pain. Currently patient denies any chest pain, nausea, vomiting, headache. Appreciate hemodynamics. Requiring 2 to 3 L of oxygen supplementation though saturation maintained over 95%. Vitals/I&O/Wt Last Vital Signs Temp 98.0 F 06/20/24 04:16 Pulse 95 06/20/24 12:00 Resp 18 06/20/24 12:00 BP 141/106 06/20/24 12:00 Pulse Ox 99 06/20/24 12:00 O2 Del Method Nasal Cannula 06/20/24 10:13 O2 Flow Rate 3 06/20/24 10:13 06/19/24 06/20/24 06/20/24 22:59 06:59 14:59 Intake Total 0 / 0 0 / 0 Output Total 375 / 375 375 / 375 Balance -375 / -375 -375 / -375 Weight last 48 hrs Weight 41.957 kg Weight 41.957 kg Weight 41.957 kg Weight 38.555 kg Physical Exam 2 Narrative: General: No acute distress, AO x3 HEENT: PERRLA, pupils bilaterally equal and reactive Chest: Normal vesicular breath sounds, no added sounds, equal good air entry bilaterally CVS: S1-S2 regular, no murmurs, no tachycardia, no gallops, no rubs Abdomen: Soft, nontender, no organomegaly, bowel sounds present Neuro: No focal deficits, no facial deformity, AO x3, power 5/5 in all limbs Psych: COMMON NORMALS: Normal thought process present and speech normal A PPEARANCE: Yes grossly normal SPEECH: Yes normal speech and Yes soft MOOD & AFFECT: Yes depressed mood and Yes tearful THOUGHT PROCESS: Normal thought process present THOUGHT CONTENT: Yes Normal thought content present, No Suicidality present and No Homicidality present ATTENTION/CONCENTRATION: Yes attention grossly intact MEMORY/COGNITION: Yes memory grossly intact I NSIGHT: Fair insight present (Psych) Data 06/20/24 02:45 06/20/24 02:45 A&P Assessment and plan (1) Non-ST elevated myocardial infarction: Elevated troponin cycle. Appreciate cardiac angiogram concerning for 80% significant stenosis of ostial to proximal LCx. 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 Anomalous origin of coronary arteries. LCx not engaged for PCI given concerns as stent placement can compromise LAD patency. Plan for medical management for now. Aspirin, Plavix, statin, metoprolol. Lovenox 1 mg/kg body weight every 12 hourly. Appreciate cardiology recommendations. Continue with normal saline at 75 cc/h. Echocardiogram pending. Strict blood pressure monitoring. (2) Coronary artery disease: (3) Arteriosclerotic cardiovascular disease: History of renal artery stenosis, atherosclerosis of the aortic arch, difference in blood pressure of right arm and left arm of 100 mmHg. Continue to monitor. HOOD workup in the past negative. (4) Malignant hypertension: Goal blood pressure less than 140/90 mmHg. Blood pressure good 200 mmHg in the ER on presentation. Symptomatic with chest pain. For now continue with home dose of amlodipine, hydralazine, metoprolol. Holding off on losartan given history of renal artery stenosis in the past, CTA done in the ER with cardiac angiogram for now. Will monitor blood pressures and uptitrate medications accordingly. If needed can add low-dose Imdur. (5) Peripheral arterial disease: Complaining of claudication of bilateral lower limb. Will check bilateral lower limb NAOMY. (6) Atrial fibrillation: Short duration of A-fib with RVR in ER. Continue to monitor. Currently normal sinus rhythm. For now increase dose of metoprolol to 75 mg twice daily. 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 Patient denies any difficulty in breathing. Respiratory viral panel negative. Most likely in setting of sedating medication. Does have history of asthma. Oxygen supplementation keeping saturation over 90%. No concerns for pneumonia for now. Incentive spirometry. For now start patient on Pulmicort twice daily, ipratropium and Xopenex every 6 hourly. Depression/anxiety: Chronic as per patient's family member. Patient occasionally seen crying. Continue with Xanax as needed, home dose of Celexa. Patient would benefit with follow-up with behavioral health clinic. Subclinical hypothyroidism: TSH more than 10. Normal free T3 and free T4. Start on low-dose levothyroxine 25 mcg daily. CODE STATUS: Full code. will be DPOA. Lovenox for DVT prophylaxis Protonix OPD prophylaxis Cardiac diet. Transfer to cardiac stepdown unit Attestations 2 Medical Necessity Statement*: Requires further hospitalization for management of non-ST elevation MT in a patient with history of severe PAD, anomalous origin of coronary arteries, single-vessel disease with 80% ostial disease of LCx while medical management is optimized, malignant hypertension, hypoxia in setting of asthma Diagnoses Non-ST elevated myocardial infarction I21.4 Coronary artery disease I25.10 Arteriosclerotic cardiovascular disease I25.10 Malignant hypertension I10 Peripheral arterial disease I73.9 Atrial fibrillation I48.91 Anomalous origin of coronary artery Q24.5 Occlusion of superior mesenteric artery K55.069 Hypoxia R09.02 Anxiety and depression F41.9; F32.9 Subclinical hypothyroidism E03.8
--- NOTE | 2024-06-20 13:24 | PC.NURSE ---
pt refused to eat at this time,, i just want to sleep
[2024-06-20] MEDS: ipratropium 0.5 mg/2.5 mL Neb INHALATION ×2 (13:48→21:35)
[2024-06-20] MEDS: ondansetron 2 mg/ML SDV 2 mL 4 MG IVP ×2 (14:21→17:13)
--- NOTE | 2024-06-20 14:29 | PC.NURSE ---
nauseated , zofran given only small amt of bile noted
--- NOTE | 2024-06-20 15:12 | PM.PN ---
Subjective Subjective: Denies any chest pain she is hurting overall she is emotionally stressed out. 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 Continue current regimen add isosorbide mononitrate (2) Hypertension: Currently well-controlled continue medicine (3) Mixed hyperlipidemia: Continue statin (4) Peripheral arterial disease: Appear to be stable (5) Atrial fibrillation: Plan Patient has typical features of chest pain. However in the setting of tachycardia and hypertensive urgency/emergency. Initial troponin is elevated but no significant uptrend at 2 hours. Went into brief episode of atrial fibrillation in ER too. Now back in NSR. As she is having ongoing chest discomfort, we will proceed with coronary angiogram once PE ruled out on CTA Continue aspirin and anticoagulation Order echocardiogram Trend troponins NPO Thank you for involving us with care of this patient. We will continue to follow. Attestations Medical Necessity Statement*: Patient required continuation hospitalization for about different care Coding Level of Care Code Acute Code for g Fwd Diagnoses Chest pain R07.9 Hypertension I10 Mixed hyperlipidemia E78.2 Peripheral arterial disease I73.9 Atrial fibrillation I48.91
--- NOTE | 2024-06-20 15:31 | PC.NURSE ---
preparing transfer to room 102 pt refusing to get up at this time states need to rest
--- NOTE | 2024-06-20 16:45 | CTR_ITS ---
PROCEDURE INFORMATION: Exam: CT Head Without Contrast Exam date and time: 06/20/2024 5:29 PM Age: 54 years old Clinical indication: Headache; Patient HX: Pain in back of head TECHNIQUE: Imaging protocol: Computed tomography of the head without contrast. Radiation optimization: All CT scans at this facility use at least one of these dose optimization techniques: automated exposure control; mA and/or kV adjustment per patient size (includes targeted exams where dose is matched to clinical indication); or iterative reconstruction. COMPARISON: CT head wo con* [id number] 11/04/2019 1:13 PM RADIATION DOSE METRICS: Total DLP (mGy-cm): 844.99 FINDINGS: Brain: There is a cortical subcortical hypodensity in the medial aspect of the left occipital lobe extending to the medial aspect of the left temporal lobe involving the left MIXER ATTENDANT territory with mass effect on the left ventricular trigone and effacement. No hemorrhage. Cerebral ventricles: No hydrocephalus. Paranasal sinuses: Visualized sinuses are unremarkable. No fluid levels. Mastoid air cells: Visualized mastoid air cells are well aerated. Orbital cavities: Post bilateral cataract surgery. Bones: Unremarkable. No acute fracture. Soft tissues: Unremarkable. CT/CT head wo con* [id number] IMPRESSION: Findings most consistent with acute/subacute left MIXER ATTENDANT territory infarct. No hemorrhagic transformation. No uncal herniation or midline shift.
[2024-06-20] MEDS: metoprolol tartrate 50 mg Tablet 75 MG PO (17:13)
[2024-06-20] MEDS: sodium chloride 0.9% 1,000 ML 50 ML IV (17:13)
--- NOTE | 2024-06-20 17:32 | PM.CCNAC ---
Critical Care Event Note The high probability of a clinically significant, sudden or life threatening deterioration of the patient's [neurological, cardiac] system(s) required my full and direct attention, intervention and personal management. The critical care time is as shown. This time is in addition to time spent performing any reported procedures but includes the following: [x] Data and vital sign review and interpretation [x] Patient assessment, examination and intervention [x] Documentation [x] Medication orders and management Around 4:30 in the evening patient complained of headache with nausea. She denies any chest pain. Hemodynamically has remained stable. Did not complain of any other weakness in arms or legs. Does complain of on and off blurry vision for few hours. 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 It was confirmed on MRI of the brain. Plan: Patient is not a tPA candidate as she is already on full dose Lovenox for non-ST elevation GA. For now we will continue with aspirin, Plavix, statin. PT/OT/speech evaluation. For now we will hold off on antihypertensive for permissible hypertension. Continue with metoprolol to prevent tachycardia. Will have to monitor for angina with high blood pressure given ongoing ACS on medical management. Care discussed in detail with patient's over the phone on [phone]. Neurochecks every 4 hours. Critical Care Time Code activated: No Critical Care Time (min): 60 Coding Level of Care Code Critical Care Other Coding Information Prolonged care (total time indicated above or notated here)
--- NOTE | 2024-06-20 18:00 | MRR_ITS ---
PROCEDURE INFORMATION: Exam: MR Head Without Contrast Exam date and time: 06/20/2024 6:52 PM Age: 54 years old Clinical indication: Visual disturbance; Additional info: Stroke TECHNIQUE: Imaging protocol: Magnetic resonance imaging of the head without contrast. COMPARISON: CT head wo con* [id number] 06/20/2024 5:29 PM FINDINGS: Brain: Moderate area of diffusion restriction in the distribution of the left posterior cerebral artery, correlating with hypodensity on recent CT brain and compatible with previously reported infarct. There is associated [id number] edema and mild mass effect. Mild patchy deep white matter FLAIR/T2 hyperintensities consistent with chronic microvascular ischemic disease. Evidence of hemorrhagic transformation. Single punctate focus of blooming in the right cerebellum likely related to prior microhemorrhage. Cerebral ventricles: Normal. No ventriculomegaly. Bones: No acute osseous abnormalities are seen. Paranasal sinuses: The paranasal sinuses are clear. Mastoid air cells: Trace fluid in the posterior mastoid air cells, stable. Orbital cavities: Orbits are within normal limits. The globes are intact. Soft tissues: Unremarkable. MR/MR head wo con* [id number] IMPRESSION: 1. Left posterior cerebral artery distribution infarct, stable in distribution and extent compared to recent CT brain. No hemorrhagic transformation. 2. Minimal deep white matter microangiopathic ischemic change.
[2024-06-20] MEDS: haloperidol inj 5 mg/mL INJ 1 mL 2 MG IM (18:40)
--- NOTE | 2024-06-20 18:48 | PC.NURSE ---
pt off floor for MRI
--- NOTE | 2024-06-20 18:53 | PC.NURSE ---
Patient arrived to CSU from ICU at appox 1545. On arrival patient appears to be extremely uncomfortable. Patient complains of nausea, vomiting, and headache. Provider aware and received orders to give her 0.25 xanax and a dose of zofran. Patient still continues to be nauseated and complains of worsening headache. Physician ordered head CT, prior to going to head CT the patient tells me that she doesnt feel right, something is wrong, my vision isnt right. . Patient is now currently off the floor for MRI. has been notified via provider.
--- NOTE | 2024-06-20 19:28 | USR_ITS ---
PROCEDURE INFORMATION: Exam: US Duplex Bilateral Lower Extremity Arteries Exam date and time: 06/20/2024 11:23 AM Age: 54 years old Clinical indication: Screening exam; With filomena TECHNIQUE: Imaging protocol: Real-time ultrasound scan of the arteries of the bilateral lower extremities with 2-D mary scale, color Doppler flow and spectral waveform analysis. Images documented and saved. COMPARISON: CT angio abd aorta runof [id number] 05/01/2018 12:57 PM FINDINGS: Right common femoral artery: No occlusion. Mild stenosis. Normal waveform. Right superficial femoral artery: No occlusion or significant stenosis. Normal waveform. Right popliteal artery: No occlusion or significant stenosis. Normal waveform. Right calf/foot arteries: No occlusion or significant stenosis in the visualized arteries. Normal waveforms. Dorsalis pedis artery is patent. Left common femoral artery: No occlusion or significant stenosis. Normal waveform. Left superficial femoral artery: No occlusion. Mild stenosis estimated at less than 50%. Normal waveform. Left popliteal artery: No occlusion or significant stenosis. Normal waveform. Left calf/foot arteries: No occlusion or significant stenosis in the visualized arteries. Normal waveforms. Dorsalis pedis artery is patent. US/CV arterial duplex [facility] [id number] IMPRESSION: Mild stenosis of the right common femoral artery and left superficial femoral artery. No occlusion.
--- NOTE | 2024-06-20 19:28 | USR_ITS ---
PROCEDURE INFORMATION: Exam: US Duplex Artery and Vein of the Abdominal and/or Reproductive Organs, Complete Kidneys Exam date and time: 06/20/2024 12:36 PM Age: 54 years old Clinical indication: Screening exam; H/o renal aretry stenosis TECHNIQUE: Imaging protocol: Real-time duplex ultrasound scan of the arterial and venous flow with color Doppler flow and spectral waveform analysis with image documentation. Complete duplex exam focused on the kidneys. Duplex exam was performed to evaluate for vascular conditions. COMPARISON: US abdomen complete* [id number] 12/12/2018 1:24 AM FINDINGS: Right kidney: Normal. No hydronephrosis. No masses. Right kidney measures 4.9 x 5.5 x 10.1 cm with cortical thickness of 1.3 cm. Right renal artery: Normal duplex of the renal artery. Duplex waveforms are within normal limits. No hemodynamically significant stenosis. Right interlobar/arcuate arteries: Resistive indices measure 0.72 upper pole, 0.79 in the interpolar region in 0.86 in the lower pole. Right renal vein: Patent Left kidney: Normal. No hydronephrosis. No masses. The left kidney measures 9.4 x 4.3 x 3.9 cm with cortical thickness of 1 cm Left renal artery: Normal duplex of the renal artery. Duplex waveforms are within normal limits. No hemodynamically significant stenosis. Left interlobar/arcuate arteries: Resistive indices measure 0.94 in the upper pole, 0.84 in the mid pole and 0.91 in the lower pole. Left renal vein: Patent US/CV renal doppler [id number] IMPRESSION: Elevated bilateral renal indices, suggestive of chronic renal medical parenchymal disease. No hemodynamically significant stenosis.
--- NOTE | 2024-06-20 19:28 | USCV_ITS ---
Anjali Murrell Age: 54 Gender: F : 1970 Exam Date: 06/20/2024 10:16 Ordering Phys: Jeremy Durán MD Technologist: Isauro Hightower Exam Location: [facility] – [place] Indication: nstemi BP: 138 / 76 HR: 93 Rhythm: Sinus Technical Quality: Adequate MEASUREMENTS (Male / Female) Normal Values 2D ECHO LV Diastolic Diameter PLAX 3.9 cm 4.2 - 5.9 / 3.9 - 5.3 cm IVS Diastolic Thickness 1.4 cm 0.6 - 1.0 / 0.6 - 0.9 cm IVS Systolic Thickness 1.7 cm LVPW Diastolic Thickness 1.5 cm 0.6 - 1.0 / 0.6 - 0.9 cm LVPW Systolic Thickness 1.6 cm LVOT Diameter 2.0 cm LV Ejection Fraction 2D Teich 51.8 % LV Ejection Fraction MOD 4C 45.5 % LV Ejection Fraction MOD 2C 63.5 % LV Ejection Fraction 2C AL 64.2 % LA Diameter 3.2 cm RA Systolic Volume 4C AL 36.5 ml RA Systolic Volume 4C MOD 33.4 ml LA Sys Volume AL 54.7 cm cubed LA Sys Volume Index AL 41.9 cm cubed/m squared Aorta at Sinotubular Diameter 1.5 cm IVC Diameter 1.3 cm M-MODE LA Ao Ratio MM 1.7 AV Cusp Separation MM 1.2 cm DOPPLER AV Peak Velocity 104.0 cm/s LVOT Peak Velocity 78.0 cm/s AV Area Cont Eq vti 2.9 cm squared AV Area Cont Eq pk 2.4 cm squared MV Peak Velocity 139.0 cm/s MV Area PHT 7.3 cm squared Mitral E to A Ratio 1.5 TR Peak Velocity 278.0 cm/s TR Peak Gradient 30.9 mmHg TR Mean Velocity 202.0 cm/s TR Mean Gradient 18.7 mmHg TR Velocity Time Integral 63.2 cm PV Peak Velocity 101.0 cm/s RV Ejection Time 0.3 s FINDINGS Left Ventricle Normal left ventricular size, systolic function with no regional wall motion abnormalities. Estimated ejection fraction 50 to 55%. Moderate left ventricle hypertrophy. Normal diastolic filling pattern. Right Ventricle The right ventricle is normal in size and function. Right Atrium The right atrium is normal in size. Left Atrium Moderately increased left atrial size. Mitral Valve Thickened mitral valve. Mild to moderate mitral valve regurgitation. Aortic Valve Structurally normal aortic valve without significant sclerosis or stenosis. There is trace aortic regurgitation. Tricuspid Valve Structurally normal tricuspid valve without significant stenosis, trace regurgitation. Pulmonary artery systolic pressure is normal. Pulmonic Valve Structurally normal pulmonic valve without significant stenosis. There is no pulmonic regurgitation. Pericardium Normal pericardium without effusion. Aorta Normal ascending aorta dimension. IVC The inferior vena cava appears normal. CONCLUSIONS 1-Normal left ventricular size, systolic function with no regional wall motion abnormalities. Estimated ejection fraction 50 to 55%. Moderate left ventricle hypertrophy. Normal diastolic filling pattern. 2-Moderately increased left atrial size. 3-Thickened mitral valve. Mild to moderate mitral valve regurgitation. 4-Right atrial pressure is around 10 mm of mercury. Barry Werner MD (Electronically Signed) Final Date: 20 June 2024 15:51 S
--- NOTE | 2024-06-20 20:45 | PC.NURSE ---
Patient is very sleepy and does not attend well to questions or commands at this time. Physician is aware. Dr. Durán reviewed new orders with me on the telephone. Unable to complete the NIHSS at this time.
[2024-06-20] MEDS: pantoprazole 40 mg SDV IVP (22:03)
[2024-06-21] VITALS (19 sets, daily range): BP systolic 102–163; BP diastolic 50–73; PULSE 75–95; RESP 16–26; TEMP 36.1–37; O2SAT 85–100
--- NOTE | 2024-06-21 02:27 | PC.NURSE ---
Msg sent to Dr. Peres regarding patient's increase need of O2. O2 raised from 2L to 6L/NC. Sats now 98-100%.
[2024-06-21] MEDS: ipratropium 0.5 mg/2.5 mL Neb INHALATION ×2 (02:45→15:30)
[2024-06-21] MEDS: levalbuterol 0.63 mg/3 mL Neb INHALATION ×3 (02:45→20:30)
[2024-06-21 03:35] LABS: Basophils % 0.1 %; Eosinophils % 0.1 %; Hematocrit 34.5 % (36-47); Lymphocytes # 0.9 10^3/uL (0.8-4.8); Lymphocytes % 6.2 %; Mean Corpuscular HGB Conc 31.9 g/dL (30-55); Mean Corpuscular Hemoglobin 27.7 pg (27-33); Mean Corpuscular Volume 86.9 fl (85-98); Mean Platelet Volume 9.6 fL (7.4-10.4); Monocytes # 0.8 10^3/uL (0.2-0.9); Monocytes % 5.6 %; Neutrophils # 13.08 10^3/uL (1.8-7.7); Neutrophils % 87.7 %; Nucleated Red Blood Cells % 0 %; Platelet Count 279 10^3/cmm (157-399); Red Blood Count 3.97 10^6/uL (3.85-5.65); Red Cell Distribution Width 14.2 % (12.1-15.1); White Blood Count 14.92 10^3/uL (3.29-11.43)
[2024-06-21 03:59] LABS: Alanine Aminotransferase 23 U/L (0-33); Alkaline Phosphatase 75 U/L (35-105); Aspartate Amino Transferase 46 U/L (0-32); Blood Urea Nitrogen 19 mg/dL (6-20); Calcium 9.1 mg/dL (8.5-10.5); Carbon Dioxide 25 mmol/L (22-29); Chloride 100 mmol/L (98-107); Globulin 2.9 g/dL (1.3-4.6); Glomerular Filtration Rate 128.6 mL/min (90-130); Glucose 110 mg/dL (65-115); Osmolality Calculated 293 mOsm/kg (285-295); Sodium 140 mmol/L (136-145); Total Bilirubin 0.4 mg/dL (0.15-1.2); Total Protein 6.9 g/dL (6.6-8.7)
[2024-06-21 04:00] LABS: Anion Gap 19.5 (5-19); Potassium 4.5 mmol/L (3.5-5.1)
[2024-06-21 04:10] LABS: Troponin T (5th) Once 1073 ng/L (0-10)
[2024-06-21] MEDS: enoxaparin 40 mg/0.4 mL Syringe SUBCUT ×2 (05:29→16:16)
--- NOTE | 2024-06-21 06:00 | USR_ITS ---
PROCEDURE INFORMATION: Exam: US Duplex Bilateral Extracranial Arteries; Complete; Carotid Arteries Exam date and time: 06/21/2024 10:36 AM Age: 54 years old Clinical indication: Condition or disease; Other: Stroke TECHNIQUE: Imaging protocol: Real-time duplex ultrasound scan of the bilateral extracranial arteries combining mary scale, color Doppler and spectral waveform analysis with image documentation. Complete exam. Exam focused on the carotid arteries. COMPARISON: CT angio neck [id number] 06/26/2018 8:41 AM FINDINGS: Right common carotid artery: Unremarkable. No occlusion or stenosis. Waveforms are normal. PSV mid CCA 284 cm/s Right internal carotid artery: Unremarkable. No occlusion or stenosis. Waveforms are normal. Proximal ICA 262 cm/s Right ICA/CCA ratio: 0.9 moderate stenosis Right external carotid artery: No stenosis in the origin. Right vertebral artery: Unremarkable. Antegrade flow. Left common carotid artery: Unremarkable. No occlusion or stenosis. Waveforms are normal. 168 cm/s Left internal carotid artery: Unremarkable. No occlusion or stenosis. Waveforms are normal. 191 cm/s Left ICA/CCA ratio: 1.1. Moderate stenosis Left external carotid artery: No stenosis in the origin. Left vertebral artery: Unremarkable. Antegrade flow. US/CV carotid duplex BI* [id number] IMPRESSION: Moderate stenosis in the right and left ICA (50% to 69% stenosis ) REFERENCES: SRU CRITERIA. The degree of internal carotid artery stenosis is based on criteria defined by the Society of Radiologists in Ultrasound (SRU). Normal is no stenosis. Mild is less than 50% stenosis. Moderate is 50-69% stenosis. Severe is greater than 69% stenosis to near occlusion. Near occlusion is a markedly narrowed lumen. Total occlusion is no detectable patent lumen.
[2024-06-21] MEDS: clopidogrel 75 mg Tablet PO (07:42)
[2024-06-21] MEDS: atorvastatin 40 mg Tablet PO (07:42)
[2024-06-21] MEDS: metoprolol tartrate 50 mg Tablet 75 MG PO ×2 (07:42→16:16)
[2024-06-21] MEDS: citalopram 20 mg Tablet PO (07:43)
[2024-06-21] MEDS: aspirin 81 mg Chew Tablet PO (07:43)
[2024-06-21] MEDS: budesonide 0.5 mg/2 mL Neb INHALATION ×2 (07:49→20:30)
[2024-06-21] MEDS: albuterol 2.5 mg/3 mL Neb INHALATION (07:49)
--- NOTE | 2024-06-21 07:49 | PC.NURSE ---
Patient awoken easily. Patient able to swallow without difficulty. Patient able to take all medications. No deficits observed presently. Patient reports feeling mildly short of breath this am. RT in with patient.
[2024-06-21] MEDS: acetaminophen 325 mg Tablet 650 MG PO ×2 (12:19→23:19)
--- NOTE | 2024-06-21 12:23 | PM.PN ---
Subjective Subjective: No acute events overnight. Today morning examination patient is laying comfortably in bed. Awake and alert. States headache is better. No further nausea. Still complaining of on and off dizziness and blurry vision. Has remained hemodynamically stable. On 2 L of oxygen supplementation. Vitals/I&O/Wt Last Vital Signs Temp 98.0 F 06/21/24 11:40 Pulse 75 06/21/24 11:40 Resp 18 06/21/24 11:40 BP 127/64 06/21/24 11:40 Pulse Ox 89 L 06/21/24 11:40 O2 Del Method Nasal Cannula 06/21/24 11:40 O2 Flow Rate 5 06/21/24 07:57 06/20/24 06/21/24 06/21/24 22:59 06:59 14:59 Intake Total 1000 / 1000 0 / 1000 1064.167 / 1064.167 Output Total 250 / 625 Balance 750 / 375 0 / 375 1064.167 / 1064.167 Weight last 48 hrs Weight 41.957 kg Weight 41.957 kg Weight 41.957 kg Weight 41.957 kg Weight 41.957 kg Weight 38.555 kg Physical Exam Narrative: General: No acute distress, AO x3 HEENT: PERRLA, pupils bilaterally equal and reactive Chest: Normal vesicular breath sounds, no added sounds, equal good air entry bilaterally CVS: S1-S2 regular, no murmurs, no tachycardia, no gallops, no rubs Abdomen: Soft, nontender, no organomegaly, bowel sounds present Neuro: No focal deficits, no facial deformity, AO x3, power 5/5 in all limbs Peripheral vision cut in left eye, blurry vision through left eye Const: COMMON NORMALS: patient oriented x3 and alert ORIENTATION/CONSCIOUSNESS: Yes oriented to person, Yes oriented to place and Yes oriented to time Neck/C-Spine: COMMON NORMALS: no meningeal signs Neuro: CLEM COMA SCALE: document GCS findings Clem coma scale eye opening: Spontaneous Clem coma scale verbal response: Orientated [place] coma scale motor response: Obey commands [place] coma scale total score: 15 COMMON NORMALS: patient oriented x3, moves all extremities and deep tendon reflexes 2+ bilaterally SENSORIUM/ORIENTATION: Yes alert, Yes oriented to person, Yes oriented to place and Yes oriented to time MENINGEAL SIGNS: Yes no meningeal signs CRANIAL NERVES: Yes pupillary reactivity/size SPEECH: speech normal MOTOR EXAM: 5/5 motor strength present throughout Psych: COMMON NORMALS: Normal thought process present and speech normal APPEARANCE: Yes grossly normal SPEECH: Yes normal speech and Yes soft MOOD & AFFECT: Yes depressed mood and Yes sad THOUGHT PROCESS: Normal thought process present THOUGHT CONTENT: Yes Normal thought content present, No Suicidality present and No Homicidality present ATTENTION/CONCENTRATION: Yes attention grossly intact MEMORY/COGNITION: Yes memory grossly intact INSIGHT: Fair insight present (Psych) Data 06/21/24 03:06 06/21/24 03:06 A&P Assessment and plan (1) Non-ST elevated myocardial infarction: Elevated troponin cycle. Appreciate cardiac angiogram concerning for 80% significant stenosis of ostial to proximal LCx. 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 Anomalous origin of coronary arteries. LCx not engaged for PCI given concerns as stent placement can compromise LAD patency. Plan for medical management for now. Aspirin, Plavix, statin, metoprolol. Lovenox 1 mg/kg body weight every 12 hourly for overall 72 hours. Appreciate cardiology recommendations. Appreciate your cardiogram results. 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 For now we will continue with aspirin, Plavix, statin. PT/OT/speech evaluation. For now we will hold off on antihypertensive for permissible hypertension. Continue with metoprolol to prevent tachycardia. Will have to monitor for angina with high blood pressure given ongoing ACS on medical management. Carotid Doppler results appreciated for moderate bilateral carotid stenosis (3) Coronary artery disease: (4) Arteriosclerotic cardiovascular disease: History of renal artery stenosis, atherosclerosis of the aortic arch, difference in blood pressure of right arm and left arm of 100 mmHg. Continue to monitor. HOOD workup in the past negative. (5) Malignant hypertension: Goal blood pressure less than 140/90 mmHg. Blood pressure good 200 mmHg in the ER on presentation. Symptomatic with chest pain. Continue with metoprolol at current dose. Holding off on other antihypertensive for permissible hypertension. (6) Peripheral arterial disease: Complaining of claudication of bilateral lower limb. Appreciate bilateral lower limb NAOMY. (7) Atrial fibrillation: Short duration of A-fib with RVR in ER. Continue to monitor. Currently normal sinus rhythm. C/w metoprolol to 75 mg twice daily. 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 Normal free T3 and free T4. Start on low-dose levothyroxine 25 mcg daily. Plan Hypoxia: CT of the chest showing showing focal interstitial prominence of the right lung. Patient denies any difficulty in breathing. Respiratory viral panel negative. Most likely in setting of sedating medication. Does have history of asthma. Hold off on sedating medications going forward. Oxygen supplementation keeping saturation over 90%. No concerns for pneumonia for now. Incentive spirometry. Continue with Pulmicort twice daily, ipratropium and Xopenex every 6 hourly. Out of bed to chair. Depression/anxiety: Chronic as per patient's family member. Patient occasionally seen crying. Continue with Xanax as needed, home dose of Celexa. Patient would benefit with follow-up with behavioral health clinic. CODE STATUS: Full code. will be DPOA. Lovenox for DVT prophylaxis Protonix OPD prophylaxis Cardiac diet. Attestations Medical Necessity Statement*: Requires further hospitalization for management of non-ST elevation FL with 85% moderate stenosis of LCx with anomalous origin on medical management, acute left GPS NAVIGATION INSTALLER stroke while patient is undergoing permissible hypertension and monitoring for angina, hypoxia in setting of asthma Diagnoses Non-ST elevated myocardial infarction I21.4 Acute ischemic left GPS NAVIGATION INSTALLER stroke I63.532 Coronary artery disease I25.10 Arteriosclerotic cardiovascular disease I25.10 Malignant hypertension I10 Peripheral arterial disease I73.9 Atrial fibrillation I48.91 Anomalous origin of coronary artery Q24.5 Occlusion of superior mesenteric artery K55.069 Hypoxia R09.02 Anxiety and depression F41.9; F32.9 Subclinical hypothyroidism E03.8
--- NOTE | 2024-06-21 12:23 | PC.NURSE ---
Patient up to chair x2 assist. Patient c/o inability to see on the left unless she turns her head. Patient reports weakness equally to bilateral legs. Bilateral upper extremities equal strength however weak. Lunch placed in front of patient, assisted with tray set up and provided encouragement. Patient pushed overbed table out of the way and reports not feeling well. Denies any specifics or needs.
--- NOTE | 2024-06-21 12:33 | PC.NURSE ---
Patient placed herself back into bed. Informed Dr Durán. Patient has not voided and will not stay up in chair. Received order to perform bladder scan.
--- NOTE | 2024-06-21 13:06 | PC.NURSE ---
Bladder scan performed. Indicates 275ml in bladder.
--- NOTE | 2024-06-21 16:28 | P.PN_ITS ---
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 that agree with acute and subacute area of infarct without hemorrhage, overall she thinks she is feeling better denies headache denies visual changes Vitals/I&O/Wt Last Vital Signs Temp 98.0 F 06/21/24 11:40 Pulse 77 06/21/24 16:00 Resp 20 H 06/21/24 16:00 BP 126/58 06/21/24 16:00 Pulse Ox 92 06/21/24 15:31 O2 Del Method Nasal Cannula 06/21/24 16:00 O2 Flow Rate 4 06/21/24 16:00 06/21/24 06/21/24 06/21/24 06:59 14:59 22:59 Intake Total 0 / 1000 1304.167 / 1304.167 Output Total 0 / 0 Balance 0 / 375 1304.167 / 1304.167 Weight last 48 hrs Weight 92 lb 8 oz Weight 92 lb 8 oz Weight 92 lb 8 oz Weight 92 lb 8 oz Weight 92 lb 8 oz Physical Exam 2 Narrative: Alert awake oriented x 3 Heart regular sinus rhythm Lungs clear to auscultate bilaterally No focal symmetrical changes Data 06/21/24 03:06 06/21/24 03:06 A&P Assessment and plan (1) Chest pain: Continue optimal medical regimen for coronary disease, denies any chest pain PND orthopnea. 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 Continue guideline medical therapy for heart failure cannot put patient on Entresto due to hypotension and renal dysfunction his beta-jass is also on hold because of being on Levophed, continue diuretics Plan Please note that patient is not a candidate for invasive strategy due to severe peripheral vascular disease morbid obesity high risk profile for bleeding stroke anemia chronic kidney disease severe LV dysfunction with short and long-term poor prognosis she is not a candidate for LVAD and heart transplant. Patient denies chest pain and feeling overall better. No significant diarrhea noted overnight. 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
[2024-06-21] MEDS: pantoprazole 40 mg SDV IVP (21:03)
[2024-06-22] VITALS (13 sets, daily range): BP systolic 116–166; BP diastolic 49–65; PULSE 65–81; RESP 16–20; TEMP 36.3–36.7; O2SAT 92–100
[2024-06-22] MEDS: levalbuterol 0.63 mg/3 mL Neb INHALATION ×3 (02:23→15:05)
[2024-06-22] MEDS: ipratropium 0.5 mg/2.5 mL Neb INHALATION ×3 (02:23→15:05)
[2024-06-22] MEDS: levothyroxine 25 mcg Tablet PO (05:10)
[2024-06-22] MEDS: acetaminophen 325 mg Tablet 650 MG PO (05:10)
[2024-06-22] MEDS: enoxaparin 40 mg/0.4 mL Syringe SUBCUT (05:10)
[2024-06-22 05:39] LABS: Basophils % 0.2 %; Eosinophils % 0.1 %; Hematocrit 34.9 % (36-47); Lymphocytes # 1.5 10^3/uL (0.8-4.8); Lymphocytes % 12.6 %; Mean Corpuscular HGB Conc 31.5 g/dL (30-55); Mean Corpuscular Hemoglobin 27.6 pg (27-33); Mean Corpuscular Volume 87.5 fl (85-98); Mean Platelet Volume 9.5 fL (7.4-10.4); Monocytes # 0.7 10^3/uL (0.2-0.9); Monocytes % 5.8 %; Neutrophils # 9.59 10^3/uL (1.8-7.7); Neutrophils % 80.7 %; Nucleated Red Blood Cells % 0 %; Platelet Count 270 10^3/cmm (157-399); Red Blood Count 3.99 10^6/uL (3.85-5.65); Red Cell Distribution Width 13.9 % (12.1-15.1); White Blood Count 11.87 10^3/uL (3.29-11.43)
[2024-06-22 06:03] LABS: Alanine Aminotransferase 17 U/L (0-33); Albumin Level 3.7 g/dL (3.5-5.2); Alkaline Phosphatase 73 U/L (35-105); Blood Urea Nitrogen 23 mg/dL (6-20); Carbon Dioxide 25 mmol/L (22-29); Chloride 98 mmol/L (98-107); Globulin 3.7 g/dL (1.3-4.6); Glomerular Filtration Rate 128.6 mL/min (90-130); Glucose 93 mg/dL (65-115); Osmolality Calculated 289 mOsm/kg (285-295); Sodium 138 mmol/L (136-145); Total Bilirubin 0.4 mg/dL (0.15-1.2); Total Protein 7.4 g/dL (6.6-8.7)
[2024-06-22 06:04] LABS: Anion Gap 19.1 (5-19); Aspartate Amino Transferase 23 U/L (0-32); Potassium 4.1 mmol/L (3.5-5.1)
[2024-06-22] MEDS: atorvastatin 40 mg Tablet PO (08:28)
[2024-06-22] MEDS: metoprolol tartrate 50 mg Tablet 75 MG PO (08:28)
[2024-06-22] MEDS: aspirin 81 mg Chew Tablet PO (08:28)
[2024-06-22] MEDS: clopidogrel 75 mg Tablet PO (08:28)
[2024-06-22] MEDS: citalopram 20 mg Tablet PO (08:28)
--- NOTE | 2024-06-22 08:32 | PC.NURSE ---
Patient continues to c/o severe headache which tylenol is not helping.
[2024-06-22] MEDS: acetaminophen-codeine 300-30mg Tablet 2 TAB PO (09:01)
[2024-06-22] MEDS: budesonide 0.5 mg/2 mL Neb INHALATION (09:03)
--- NOTE | 2024-06-22 09:10 | CT_ITS ---
WS: [id number] CT HEAD TECHNIQUE: Noncontrast CT of the head obtained from the skullbase to the vertex. CLINICAL INFORMATION: severe headache s/p cva COMPARISON: MRI 06/20/[address] 06/20/24 DLP: 1059.[address] scans at [facility] use at least one of these dose optimization techniques: automated e xposure control; mA and/or kV adjustment per patient size (includes targeted exams where dose is matc hed to clinical indication); or iterative reconstruction. FINDINGS: Again seen is the evolving LEFT BUSINESS TRANSFORMATION MANAGER territory infarct as previously described with diffuse low-attenu ation change. No evidence of interval hemorrhage. Ischemia extends into the dorsal LEFT thalamus unch anged compared to previous. Localized mass effect with mass effect on the LEFT ambient cistern and L EFT occipital horn slightly increased compared to the prior studies. Small amount of low-attenuation change in the LEFT yu radiata also compatible with evolving small infarcts similar to the prior M RI. Edema extends into the LEFT temporal lobe. Mass effect on the LEFT temporal horn. Mild LEFT to RIGHT midline shift has increased measuring 3 mm. Suprasellar cistern remains patent. F ourth ventricle remains patent. Mass effect on the third ventricle with suggestion of early trapping of the LEFT lateral ventricle. Recommend continued interval follow-up. No other interval changes. [place] air cells are well aerated. Paranasal sinuses are well aerated. CT/CT head wo con* [id number] IMPRESSION: 1. No intracranial hemorrhage. 2. Expected evolution of the subacute LEFT BUSINESS TRANSFORMATION MANAGER territory infarct with involvem ent of the LEFT yu radiata and dorsal LEFT thalamus. Increased associated e darian and localized mass effect with mild LEFT to RIGHT midline shift measuring 3 mm which appears increased. 3. Mass effect on the LEFT occipital horn and posterior LEFT lateral ventricle . Partial effacement of the third ventricle. 4. Mild mass effect on the LEFT ambient cistern and midbrain. Suprasellar cist elian remains patent. 5. Slight dilatation of the LEFT lateral ventricle suggestive of early trappin g. Recommend short interval follow-up. Message LEFT for Ede Herrera MD at 06/22/2024 10:26 AM.
--- NOTE | 2024-06-22 10:01 | PC.NURSE ---
Informed Dr Herrera patient is not having any relief of severe pain to the head. Received onetime order for Dilaudid 0.5mg IVP for severe headache. Patient currently in CT
--- NOTE | 2024-06-22 10:55 | PC.NURSE ---
Patient reports headache improving slightly. Will continue to monitor.
--- NOTE | 2024-06-22 12:58 | PM.PN ---
Subjective Subjective: Patient complained of continuous headache, Dr. Bravo repeated CT of the head which was suggestive of cerebral edema with mass effect as described 1. No intracranial hemorrhage. 2. Expected evolution of the subacute LEFT LEATHER PRODUCTION MACHINE OPERATOR territory infarct with involvement of the LEFT yu radiata and dorsal LEFT thalamus. Increased associated edema and localized mass effect with mild LEFT to RIGHT midline shift measuring 3 mm which appears increased. 3. Mass effect on the LEFT occipital horn and posterior LEFT lateral ventricle. Partial effacement of the third ventricle. 4. Mild mass effect on the LEFT ambient cistern and midbrain. Suprasellar cistern remains patent. 5. Slight dilatation of the LEFT lateral ventricle suggestive of early trapping. Recommend short interval follow-up. Medications: Medication Review Details: Patient had episode of thought to be a stroke overnight involving LEATHER PRODUCTION MACHINE OPERATOR that agree with acute and subacute area of infarct without hemorrhage, evolution of subacute left LEATHER PRODUCTION MACHINE OPERATOR/left yu radiata/left thalamus. Increase associated edema with mass effect. Vitals/I&O/Wt Last Vital Signs Temp 98.0 F 06/22/24 11:58 Pulse 65 06/22/24 11:58 Resp 18 06/22/24 08:00 BP 140/59 06/22/24 11:58 Pulse Ox 100 06/22/24 11:58 O2 Del Method Nasal Cannula 06/22/24 11:58 O2 Flow Rate 2 06/22/24 08:00 06/21/24 06/22/24 06/22/24 22:59 06:59 14:59 Intake Total 340 / 1644.167 Output Total 0 / 0 Balance 340 / 1644.167 Weight last 48 hrs Weight 92 lb 8 oz Weight 92 lb 8 oz Weight 92 lb 8 oz Physical Exam Narrative: Alert awake oriented x 3, patient complaining of headache Heart regular sinus rhythm Lungs clear to auscultate bilaterally No focal symmetrical changes Data 06/22/24 04:51 06/22/24 04:51 A&P Assessment and plan (1) Chest pain: No chest pain continue current regimen (2) Hypertension: Controlled continue medicine (3) Mixed hyperlipidemia: We will continue statin (4) Peripheral arterial disease: Patient remained stable but not no dopplerable pulses, Denies any pain aches of the legs (5) Atrial fibrillation: Controlled continue current regimen (6) 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 Patient will be transferred to higher level of care with neurosurgery backup. (7) Non-ST elevated myocardial infarction: Plavix has been added (8) CKD (chronic kidney disease): As per nephrology/patient had dialysis after that she is feeling much better (9) CHF (congestive heart failure), NYHA class IV: Acute decompensated systolic heart failure with severe LV dysfunction. Continue guideline medical therapy for heart failure cannot put patient on Entresto due to hypotension and renal dysfunction his beta-jass is also on hold because of being on Levophed, continue diuretics Plan Please note that patient is not a candidate for invasive strategy due to severe peripheral vascular disease morbid obesity high risk profile for bleeding stroke anemia chronic kidney disease severe LV dysfunction with short and long-term poor prognosis she is not a candidate for LVAD and heart transplant. Patient denies chest pain and feeling overall better. No significant diarrhea noted overnight. Attestations Medical Necessity Statement*: Patient require continuation hospitalization and transfer to higher level of care for neurosurgical backup Coding Level of Care Code Acute Code for [facility] Diagnoses Chest pain R07.9 Hypertension I10 Mixed hyperlipidemia E78.2 Peripheral arterial disease I73.9 Atrial fibrillation I48.91 Acute ischemic left LEATHER PRODUCTION MACHINE OPERATOR stroke I63.532 Non-ST elevated myocardial infarction I21.4 CKD (chronic kidney disease) N18.9 CHF (congestive heart failure), NYHA class IV I50.9
[2024-06-22] MEDS: HYDROmorphone 1 mg/mL INJ 1 mL 0.5 MG IVP (15:56)
--- NOTE | 2024-06-22 16:10 | PM.TDS ---
Transfer Summary Providers Date of Admission: 06/19/24 18:49 Date of Discharge/Transfer: 06/22/24 Attending Provider at Admission: Jeremy Durán MD Attending Provider at Transfer: Ede Herrera Primary Care Provider: ABA Mejia Transfer Plans: Anticipated date of transfer: 06/22/24. 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 stroke: Status: Acute (7) Non-ST elevated myocardial infarction: Status: Acute (8) CKD (chronic kidney disease): Status: Chronic (9) CHF (congestive heart failure), NYHA class IV: Status: Acute Reason for Visit Reason for Visit chest pain Hospital Course Hospital Course Pleasant 54-year-old lady with history of coronary disease, 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 She was assessed by cardiology. Underwent coronary angiography with confirmation of UNDERGROUND BOLTING MACHINE OPERATOR of RCA, proximal CX disease was found but with difficult anatomy with anomalous origin stenting was not found to be a safe option with concerns of the stent causing occlusion of LAD. She continues on aspirin, Plavix, Lovenox. Transient hypoxia after procedure which resolved with nebulization treatment. On Saturday evening she noted having headache, dizziness, had stat CT and MRI which showed left GREENSKEEPER SUPERVISOR territory infarct. Was not a candidate for tPA. Mild to moderate edema was noted. Also incidentally noted punctate hemosiderin spot with old tiny hemorrhagic transformation in the cerebellum. Antihypertensives were de-escalated for permissive hypertension. Carotid duplex showed moderate stenosis in right and left ICA 50 to 69%. Today again with bothersome headache, some response to Tylenol 3. Having some mild to moderate difficulties with FNF, right visual field deficit which she reports developed in association with the other symptoms. Also noted with mildly diminished sensation on the right compared to the left. Reimaged with CT head which showed some progression of GREENSKEEPER SUPERVISOR territory infarct edema with 3 mm midline shift left towards the right as well as partial effacement of the third ventricle, as well as fullness of the left lateral ventricle with concern for early trapping, please see full report for details. Findings discussed with neurology and cardiology. Anticoagulation withheld due to risk of hemorrhagic transformation. Recommendation for transfer to higher level of care with availability of neurosurgery in case of progression of edema eventual need for decompression. Hypertonic saline therapy was considered, not started yet per discussion. All of the above also discussed with patient and family who are in agreement with and understand associated risks of the condition and course of action. She did not have a stent placed so antiplatelets could be held as well if needed. She was kindly accepted for further assessment and management at [facility] in [place] after discussion with the admitting team. Physical Exam Const: COMMON NORMALS: patient oriented x3 and alert GENERAL APPEARANCE: cooperative ORIENTATION/CONSCIOUSNESS: Yes awake HENMT: COMMON NORMALS: oropharynx normal Neck/C-Spine: COMMON NORMALS: no JVD Resp: COMMON NORMALS: normal respiratory effort and clear to auscultation bilaterally AUSCULTATION: clear to auscultation bilaterally Cardio: COMMON NORMALS: no JVD, regular rhythm, S1 normal heart sound present, S2 normal heart sound present and No murmurs present (Cardio) RHYTHM: regular rhythm HEART SOUNDS: S1 normal heart sound present and S2 normal heart sound present GI: COMMON NORMALS: Normal to inspection, nondistended, normoactive bowel sounds present, Soft to palpation and non-tender PALPATION: Yes Soft to palpation Extremity: COMMON NORMALS: no joint enlargement and no pedal edema Neuro: COMMON NORMALS: patient oriented x3 and moves all extremities SENSORIUM/ORIENTATION: Yes alert OTHER: She is awake and alert, interactive, follows directions. Having a headache, some photophobia. He does track horizontally, but not to the right, due to visual field deficits on the right side. No obvious facial droop. Mild to moderate difficulty with FNF. Sensation mildly diminished on the right compared to left. No extremity drift. 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 Stat Exams 06/19/24 18:33 Taken Completed Studies During Hospitalization Category Date Time Status CT angio chest PE protcl [id number] Stat Cat Scan 06/19/24 16:[address] head wo con* [id number] Routine Cat Scan 06/20/24 16:[address] head wo con* [id number] Routine Cat Scan 06/22/24 09:10 Completed CXRP [XR chest 1V portable [id number]] Routine Exams 06/20/24 08:42 Completed XR chest 1V portable [id number] Stat Exams 06/19/24 16:00 Completed MR head wo con* [id number] Stat MRI 06/20/24 18:00 [place] [id number] Routine Ultrasound 06/20/24 19:28 Completed CV carotid duplex BI* [id number] Routine Ultrasound 06/21/24 06:00 Completed CV renal doppler [id number] Routine Ultrasound 06/20/24 19:28 Completed CV. echo complete* [id number] Routine Ultrasound 06/20/24 19:28 Completed Laboratory Last Values WBC 11.87 10^3/uL (3.29-11.43) H 06/22/24 04:51 RBC 3.99 10^6/uL (3.85-5.65) 06/22/24 04:51 Hgb 11.00 g/dL (11.27-16.99) L 06/22/24 04:51 Hct 34.9 % (36-47) L 06/22/24 04:51 MCV 87.5 fl (85-98) 06/22/24 04:51 MCH 27.6 pg (27-33) 06/22/24 04:51 MCHC 31.5 g/dL (30-55) 06/22/24 04:51 RDW 13.9 % (12.1-15.1) 06/22/24 04:51 Plt Count 270 10^3/cmm (157-399) 06/22/24 04:51 MPV 9.5 fL (7.4-10.4) 06/22/24 04:51 Neut % (Auto) 80.7 % 06/22/24 04:51 Lymph % (Auto) 12.6 % 06/22/24 04:51 [place] % (Auto) 5.8 % 06/22/24 04:51 Eos % (Auto) 0.1 % 06/22/24 04:51 Baso % (Auto) 0.2 % 06/22/24 04:51 Neut # (Auto) 9.59 10^3/uL (1.8-7.7) H 06/22/24 04:51 Lymph # (Auto) 1.5 10^3/uL (0.8-4.8) 06/22/24 04:51 [place] # (Auto) 0.7 10^3/uL (0.2-0.9) 06/22/24 04:51 Eos # (Auto) 0.0 10^3/uL (0.0-0.8) 06/22/24 04:51 Baso # (Auto) 0.0 10^3/uL (0.0-0.1) 06/22/24 04:51 Nucleated RBC % (auto) 0 % 06/22/24 04:51 Nucleated RBCs # 0.0 /100WBC 06/22/24 04:51 Sodium 138 mmol/L (136-145) 06/22/24 04:51 Potassium 4.1 mmol/L (3.5-5.1) 06/22/24 04:51 Chloride 98 mmol/L (98-107) 06/22/24 04:51 Carbon Dioxide 25 mmol/L (22-29) 06/22/24 04:51 Anion Gap 19.1 (5-19) H 06/22/24 04:51 BUN 23 mg/dL (6-20) H 06/22/24 04:51 Creatinine 0.5 mg/dL (0.5-0.9) 06/22/24 04:51 GFR Calculation 128.6 mL/min (90-130) 06/22/24 04:51 Glucose 93 mg/dL (65-115) 06/22/24 04:51 Estimat Average Glucose 111 06/20/24 02:45 Hemoglobin A1c 5.5 % (4.0-6.0) 06/20/24 02:45 Calculated Osmolality 289 mOsm/kg (285-295) 06/22/24 04:51 Lactic Acid 1.2 mmol/L (0.5-2.2) 06/19/24 16:18 Calcium 9.0 mg/dL (8.5-10.5) 06/22/24 04:51 Phosphorus 4.2 mg/dL (2.5-4.5) 06/20/24 02:45 Magnesium 1.9 mg/dL (1.7-2.3) 06/20/24 02:45 Iron 51 ug/dL (37-145) 06/19/24 18:19 TIBC 346 mcg/dl 06/19/24 18:19 % Saturation 14.7 % (20-50) L 06/19/24 18:19 Unsat Iron Binding 295 ug/dL (112-347) 06/19/24 18:19 Total Bilirubin 0.4 mg/dL (0.15-1.2) 06/22/24 04:51 AST 23 U/L (0-32) 06/22/24 04:51 ALT 17 U/L (0-33) 06/22/24 04:51 Alkaline Phosphatase 73 U/L (35-105) 06/22/24 04:51 Troponin T 5th Gen ng/L 1073 ng/L (0-10) H* 06/21/24 03:06 Troponin T Baseline 38 ng/L (0-10) H 06/19/24 16:18 Troponin T 120 Minute 36.62 ng/L (0-10) H 06/19/24 18:19 Delta Troponin T -1.38 ABS# (0-10) L 06/19/24 18:19 Troponin T Hi Sens 6Hr 165.8 ng/L (0-10) H 06/19/24 22:04 Troponin T Hi Sens 6Hr Delta 127.8 ng/L (0-12) H* 06/19/24 22:04 NT-Pro-B Natriuret Pep 3446 pg/mL (0-125) H 06/19/24 16:18 Total Protein 7.4 g/dL (6.6-8.7) 06/22/24 04:51 Albumin 3.7 g/dL (3.5-5.2) 06/22/24 04:51 Globulin 3.7 g/dL (1.3-4.6) 06/22/24 04:51 Triglycerides 152 mg/dL (0-150) H 06/20/24 02:45 Cholesterol 273 mg/dL (0-200) H 06/20/24 02:45 LDL Cholesterol, Calc 165 mg/dL (50-129) H 06/20/24 02:45 HDL Cholesterol 78 mg/dL (60-100) 06/20/24 02:45 LDL/HDL Ratio 2.12 RATIO (0.00-3.22) 06/20/24 02:45 Cholesterol/HDL Ratio 3.50 mg/dL (0.0-4.40) 06/20/24 02:45 Vitamin B12 403 pg/mL (232-1245) 06/19/24 18:19 Folate > 20.0 ng/mL (4.8-37.3) 06/20/24 02:45 Procalcitonin 0.04 ng/mL (0-0.5) 06/19/24 18:19 TSH 12.40 uIU/mL (0.27-4.20) H 06/19/24 18:19 Free T4 1.20 ng/dL (0.82-1.77) 06/19/24 22:04 Free T3 3.3 PG/ML (2.0-4.4) 06/19/24 22:04 Urine Color Yellow (Yellow) 06/20/24 00:15 Urine Appearance Clear (CLEAR) 06/20/24 00:15 Urine pH 7.5 (5-7) 06/20/24 00:15 Ur Specific [place] 1.076 (1.005-1.030) H 06/20/24 00:15 Urine Protein Negative (Negative) 06/20/24 00:15 Urine Glucose (UA) Negative (Normal) 06/20/24 00:15 Urine Ketones Negative (Negative) 06/20/24 00:15 Urine Blood Negative (Negative) 06/20/24 00:15 Urine Nitrate Negative (Negative) 06/20/24 00:15 Urine Bilirubin Negative (Negative) 06/20/24 00:15 Urine Urobilinogen 0.2 mg/dL (Negative) 06/20/24 00:15 Ur Leukocyte Esterase Negative (Negative) 06/20/24 00:15 Urine RBC 0-2 /hpf (0-2) 06/20/24 00:15 Urine WBC 0-5 /hpf (0-5) 06/20/24 00:15 Ur Squamous Epith Cells 0-5 /hpf (0-5) 06/20/24 00:15 Amorphous Sediment Not Reportable 06/20/24 00:15 Urine Bacteria None seen /hpf (NONE) 06/20/24 00:15 Hyaline Casts 0-4 /lpf H 06/20/24 00:15 Adenovirus (PCR) Not detected (NOT DETECT) 06/20/24 02:45 C. pneumoniae DNA (PCR) Not detected (NOT DETECT) 06/20/24 02:45 Coronavirus 229E (PCR) Not detected (NOT DETECT) 06/20/24 02:45 Human Metapneumovir PCR Not detected (NOT DETECT) 06/20/24 02:45 Influenza A (H1) PCR Not detected (NOT DETECT) 06/20/24 02:45 Influ A (H1/09) PCR Not detected (NOT DETECT) 06/20/24 02:45 Influenza A (H3) PCR Not detected (NOT DETECT) 06/20/24 02:45 Influenza Type A (PCR) Not detected (NOT DETECT) 06/20/24 02:45 Influenza Type B (PCR) Not detected (NOT DETECT) 06/20/24 02:45 M. pneumoniae (PCR) Not detected (NOT DETECT) 06/20/24 02:45 Parainfluenza 1 (PCR) Not detected (NOT DETECT) 06/20/24 02:45 Parainfluenza 2 (PCR) Not detected (NOT DETECT) 06/20/24 02:45 Parainfluenza 3 (PCR) Not detected (NOT DETECT) 06/20/24 02:45 Parainfluenza 4 (PCR) Not detected (NOT DETECT) 06/20/24 02:45 RSV Type A (PCR) Not detected (NOT DETECT) 06/20/24 02:45 RSV Type B (PCR) Not detected (NOT DETECT) 06/20/24 02:45 Entero/Rhino (PCR) Not detected (NOT DETECT) 06/20/24 02:45 SARS-CoV-2 (PCR) Not detected (NOT DETECT) 06/20/24 02:45 Radiology Impressions Chest CTA 06/19/24 16:44 IMPRESSION: 1. Patchy areas of focal interstitial prominence in the right lung. A component was present on the prior study but it has overall slightly increased. 2. No evidence for acute pulmonary arterial embolism. 3. Coronary artery calcifications. 4. Atherosclerotic disease involving the aorta and proximal great vessels, somewhat advanced for a patient of this age. 5. Cardiomegaly with left atrial enlargement. Chest X-Ray 06/20/24 08:42 IMPRESSION: New bilateral alveolar opacities that might represent alveolar edema or pneumonia. Head MRI 06/20/24 18:00 IMPRESSION: 1. Left posterior cerebral artery distribution infarct, stable in distribution and extent compared to recent CT brain. No hemorrhagic transformation. 2. Minimal deep white matter microangiopathic ischemic change. Duplex Scan Lower Extremity Artery 06/20/24 19:28 IMPRESSION: Mild stenosis of the right common femoral artery and left superficial femoral artery. No occlusion. Renal Ultrasound 06/20/24 19:28 IMPRESSION: Elevated bilateral renal indices, suggestive of chronic renal medical parenchymal disease. No hemodynamically significant stenosis. Carotid Doppler Study 06/21/24 06:00 IMPRESSION: Moderate stenosis in the right and left ICA (50% to 69% stenosis ) REFERENCES: SRU CRITERIA. The degree of internal carotid artery stenosis is based on criteria defined by the Society of Radiologists in Ultrasound (SRU). Normal is no stenosis. Mild is less than 50% stenosis. Moderate is 50-69% stenosis. Severe is greater than 69% stenosis to near occlusion. Near occlusion is a markedly narrowed lumen. Total occlusion is no detectable patent lumen. Head CT 06/22/24 09:10 IMPRESSION: 1. No intracranial hemorrhage. 2. Expected evolution of the subacute LEFT GREENSKEEPER SUPERVISOR territory infarct with involvement of the LEFT yu radiata and dorsal LEFT thalamus. Increased associated edema and localized mass effect with mild LEFT to RIGHT midline shift measuring 3 mm which appears increased. 3. Mass effect on the LEFT occipital horn and posterior LEFT lateral ventricle. Partial effacement of the third ventricle. 4. Mild mass effect on the LEFT ambient cistern and midbrain. Suprasellar cistern remains patent. 5. Slight dilatation of the LEFT lateral ventricle suggestive of early trapping. Recommend short interval follow-up. Message LEFT for Ede Herrera MD at 06/22/2024 10:26 AM. Recent Clincial Data Last Vital Signs Temp 98.0 F 06/22/24 11:58 Pulse 69 06/22/24 15:08 Resp 18 06/22/24 15:56 BP 140/59 06/22/24 11:58 Pulse Ox 92 06/22/24 15:08 O2 Del Method Nasal Cannula 06/22/24 15:08 O2 Flow Rate 4 06/22/24 15:08 Vital Signs Temp Pulse Resp BP Pulse Ox O2 Del Method O2 Flow Rate 06/22/24 15:56 18 06/22/24 15:08 69 18 92 Nasal Cannula 4 06/22/24 11:58 98.0 F 65 140/59 100 Nasal Cannula 06/22/24 08:00 73 18 93 Nasal Cannula 2 06/22/24 07:43 97.3 F L 70 166/65 96 Nasal Cannula 06/22/24 05:55 80 Intake & Output/Weight 06/20/24 06/21/24 06/22/24 06/23/24 06:59 06:59 06:59 06:59 Intake Total 0 / 0 1000 / 1000 1644.167 / 1644.167 Output Total 375 / 375 625 / 625 0 / 0 Balance -375 / -375 375 / 375 1644.167 / 1644.167 Weight 41.957 kg 41.957 kg 41.957 kg Vitals Last Vital Signs Temp 98.0 F 06/22/24 11:58 Pulse 69 06/22/24 15:08 Resp 18 06/22/24 15:56 BP 140/59 06/22/24 11:58 Pulse Ox 92 06/22/24 15:08 O2 Del Method Nasal Cannula 06/22/24 15:08 O2 Flow Rate 4 06/22/24 15:08 TS Medications Medications Acetaminophen (Acetaminophen 325 Mg Tablet) 650 mg PO Q6H PRN PRN Reason: Mild/Mod Pain Or Temp >/= 101 Last Admin: 06/22/24 05:10 Dose: 650 mg Albuterol Sulfate (Albuterol 2.5 Mg/3 Ml Neb) 2.5 mg INHALATION Q6H.RESP PRN PRN Reason: BRONCHOSPASM Last Admin: 06/21/24 07:49 Dose: 2.5 mg Alprazolam (Alprazolam 0.5 Mg Tablet) 0.25 mg PO TID PRN PRN Reason: anxiety Last Admin: 06/20/24 17:12 Dose: 0.25 mg Amlodipine Besylate (Amlodipine 10 Mg Tablet) 10 mg PO DAILY ROHIT Last Admin: 06/20/24 09:09 Dose: 10 mg Aspirin (Aspirin 81 Mg Chew Tablet) 81 mg PO DAILY ROHIT Last Admin: 06/22/24 08:28 Dose: 81 mg Atorvastatin Calcium (Atorvastatin 40 Mg Tablet) 40 mg PO DAILY [facility] Last Admin: 06/22/24 08:28 Dose: 40 mg Bisacodyl (Bisacodyl 5 Mg Tablet) 10 mg PO DAILY PRN; Protocol PRN Reason: Constipation (see protocol) Budesonide (Budesonide 0.5 Mg/2 Ml Neb) 0.5 mg INHALATION BID.RESPIRATORY [facility] Last Admin: 06/22/24 09:03 Dose: 0.5 mg Citalopram Hydrobromide (Citalopram 20 Mg Tablet) 20 mg PO DAILY [facility] Last Admin: 06/22/24 08:28 Dose: 20 mg Clopidogrel Bisulfate (Clopidogrel 75 Mg Tablet) 75 mg PO DAILY [facility] Last Admin: 06/22/24 08:28 Dose: 75 mg Enoxaparin Sodium (Enoxaparin 40 Mg/0.4 Ml Syringe) 40 mg SUBCUT Q12H [facility] Last Admin: 06/22/24 05:10 Dose: 40 mg Hydralazine HCl (Hydralazine 25 Mg Tablet) 25 mg PO TID [facility] Last Admin: 06/20/24 15:29 Dose: 25 mg Hydromorphone HCl (Hydromorphone 1 Mg/Ml Inj 1 Ml) 0.5 mg IVP ONCE PRN PRN Reason: severe pain Last Admin: 06/22/24 15:56 Dose: 0.5 mg Ipratropium [place] (Ipratropium 0.5 Mg/2.5 Ml Neb) 0.5 mg INHALATION Q6H.RESP [facility] Last Admin: 06/22/24 15:05 Dose: 0.5 mg Lactulose (Lactulose Oral Liq 20 Gm/30 Ml Udc) 10 gm PO DAILY PRN; Protocol PRN Reason: Constipation (see protocol) Levalbuterol HCl (Levalbuterol 0.63 Mg/3 Ml Neb) 0.63 mg INHALATION Q6H.RESP [facility] Last Admin: 06/22/24 15:05 Dose: 0.63 mg Levothyroxine Sodium (Levothyroxine 25 Mcg Tablet) 25 mcg PO QAM [facility] Last Admin: 06/22/24 05:10 Dose: 25 mcg Magnesium Hydroxide (Magnesium Hydroxide 30 Ml Udc) 30 ml PO DAILY PRN; Protocol PRN Reason: Constipation (see protocol) Metoprolol Tartrate (Metoprolol Tartrate 1 Mg/1 Ml Sdv 5 Ml) 5 mg IVP Q4H PRN PRN Reason: tachycardia Last Admin: 06/19/24 18:00 Dose: 5 mg Metoprolol Tartrate (Metoprolol Tartrate 50 Mg Tablet) 75 mg PO BID [facility] Last Admin: 06/22/24 08:28 Dose: 75 mg Morphine Sulfate (Morphine 4 Mg/Ml Sdv 1 Ml) 2 mg IVP Q4H PRN PRN Reason: SEVERE PAIN Ondansetron HCl (Ondansetron 2 Mg/Ml Sdv 2 Ml) 4 mg IVP Q8H PRN PRN Reason: vomiting, or N/V if npo Last Admin: 06/20/24 17:13 Dose: 4 mg Pantoprazole Sodium (Pantoprazole 40 Mg Sdv) 40 mg IVP Q24H [facility] Last Admin: 06/21/24 21:03 Dose: 40 mg Discontinued Medications Acetaminophen/Codeine Phosphate (Acetaminophen-Codeine 300-30mg Tablet) 2 tab PO ONCE ONE Stop: 06/22/24 09:16 Last Admin: 06/22/24 09:01 Dose: 2 tab Alprazolam (Alprazolam 0.5 Mg Tablet) 0.25 mg PO TID [facility] Last Admin: 06/20/24 09:09 Dose: 0.25 mg Aspirin (Aspirin 81 Mg Chew Tablet) 324 mg PO NOW ONE Stop: 06/19/24 16:09 Last Admin: 06/19/24 16:16 Dose: 324 mg Clopidogrel Bisulfate (Clopidogrel 300 Mg Tablet) 300 mg PO ONCE ONE Stop: 06/19/24 16:09 Last Admin: 06/19/24 16:14 Dose: 300 mg Diphenhydramine HCl (Diphenhydramine 50 Mg/Ml Sdv 1ml) Confirm Administered Dose 50 mg .ROUTE .STK-MED ONE Stop: 06/19/24 19:48 Enoxaparin Sodium (Enoxaparin 40 Mg/0.4 Ml Syringe) 40 mg SUBCUT Q24H [facility] Last Admin: 06/21/24 06:35 Dose: Not Given Enoxaparin Sodium (Enoxaparin 40 Mg/0.4 Ml Syringe) 40 mg SUBCUT Q24H [facility] Last Admin: 06/20/24 06:33 Dose: 40 mg Fentanyl (Fentanyl 50 Mcg/Ml Inj 2ml) Confirm Administered Dose 100 mcg .ROUTE .STK-MED ONE Stop: 06/19/24 18:39 Fentanyl (Fentanyl 50 Mcg/Ml Inj 2ml) Confirm Administered Dose [address] mcg [address] [facility]-MED ONE Stop: 06/19/24 19:17 Haloperidol Lactate (Haloperidol Inj 5 Mg/Ml Inj 1 Ml) 2 mg IM NOW ONE Stop: 06/20/24 18:15 Last Admin: 06/20/24 18:40 Dose: 2 mg Heparin Sodium (Porcine) (Heparin 5,000 Unit/Ml Inj 1 Ml) Confirm Administered Dose 5,000 unit .ROUTE .STK-MED ONE Stop: 06/19/24 18:36 Hydralazine HCl (Hydralazine 20 Mg/Ml Inj 1 Ml) 20 mg IVP ONCE ONE Stop: 06/19/24 16:27 Last Admin: 06/19/24 16:30 Dose: 20 mg Hydralazine HCl (Hydralazine 20 Mg/Ml Inj 1 Ml) 20 mg IVP ONCE ONE Stop: 06/19/24 16:31 Last Admin: 06/19/24 16:36 Dose: 20 mg Hydralazine HCl (Hydralazine 20 Mg/Ml Inj 1 Ml) Confirm Administered Dose 20 mg .[address] .[facility]-MED ONE Stop: 06/19/24 20:22 Sodium Chloride (Sodium Chloride 0.9%) 1,000 mls @ 50 mls/hr IV .Q20H [facility] Last Infusion: 06/21/24 12:06 Dose: Infused Lidocaine HCl (Xylocaine) Confirm Administered Dose 20 mls @ as directed .ROUTE .STK-MED ONE Stop: 06/19/24 18:39 Lidocaine HCl (Xylocaine) Confirm Administered Dose 20 mls @ as directed .ROUTE .[facility]-MED ONE Stop: 06/19/24 19:25 Iohexol (Iohexol 350 Mg/Ml 500 Ml Btl (Per Ml)) 0 ml IV ONCE ONE Stop: 06/19/24 17:41 Last Admin: 06/19/24 17:41 Dose: 53 ml Metoprolol Tartrate (Metoprolol Tartrate 1 Mg/1 Ml Sdv 5 Ml) Confirm Administered Dose 5 mg .ROUTE .STK-MED ONE Stop: 06/19/24 19:57 Metoprolol Tartrate (Metoprolol Tartrate 50 Mg Tablet) 50 mg PO BID [facility] Last Admin: 06/20/24 09:08 Dose: 50 mg Midazolam HCl (Midazolam 1 Mg/Ml Inj 2 Ml) Confirm Administered Dose 2 mg .ROUTE .STK-MED ONE Stop: 06/19/24 18:39 Midazolam HCl (Midazolam 1 Mg/Ml Inj 2 Ml) Confirm Administered Dose 2 mg .ROUTE .STK-MED ONE Stop: 06/19/24 19:16 Morphine Sulfate (Morphine 4 Mg/Ml Sdv 1 Ml) 4 mg IVP ONCE ONE Stop: 06/19/24 16:52 Last Admin: 06/19/24 17:01 Dose: 4 mg Nitroglycerin (Nitroglycerin 0.1 Mg Patch) 1 patch TRANSDERMA ONCE ONE Stop: 06/19/24 16:28 Last Admin: 06/19/24 16:34 Dose: 1 patch Ondansetron HCl (Ondansetron 2 Mg/Ml Sdv 2 Ml) 4 mg IVP ONCE ONE Stop: 06/19/24 16:52 Last Admin: 06/19/24 17:01 Dose: 4 mg Ondansetron HCl (Ondansetron 2 Mg/Ml Sdv 2 Ml) 8 mg IVP ONCE ONE Stop: 06/19/24 17:26 Last Admin: 06/19/24 17:29 Dose: 8 mg Allergies No Known Allergies Allergy (Verified 12/17/19 11:13) Home Medications albuterol sulfate 90 mcg/actuation breath activated powder inhaler 2 inh inhalation Q4H PRN shortness of breath or wheezing #1 ea 12/17/19 [Rx Confirmed 06/21/24] amlodipine 10 mg tablet 10 mg PO DAILY #30 tabs 12/17/19 [Rx Confirmed 06/21/24] aspirin 81 mg chewable tablet 81 mg PO DAILY #30 tabs 12/17/19 [Rx Confirmed 06/21/24] clopidogrel 75 mg tablet 75 mg PO DAILY #30 tabs 12/17/19 [Rx Confirmed 06/21/24] nitroglycerin 0.4 mg sublingual tablet 0.4 mg sublingual Q5M PRN chest pain #25 tabs 12/17/19 [Rx Confirmed 06/21/24] atorvastatin 80 mg tablet 80 mg PO DAILY 06/21/24 [History Confirmed 06/21/24] famotidine 40 mg tablet 40 mg PO DAILY 06/21/24 [History Confirmed 06/21/24] labetalol 200 mg tablet 200 mg PO BID 06/21/24 [History Confirmed 06/21/24] methocarbamol 500 mg tablet 500 mg PO Q12H 06/21/24 [History Confirmed 06/21/24] sertraline 50 mg tablet 50 mg PO DAILY 06/21/24 [History Confirmed 06/21/24] trazodone 50 mg tablet 50 mg PO BEDTIME 06/21/24 [History Confirmed 06/21/24] Discharge Plan Discharge Disposition: Xfer Short-Term Hosp Condition: Stable Prescriptions: No Action amlodipine 10 mg tablet 10 mg PO DAILY Qty: 30 3RF aspirin 81 mg tablet,chewable 81 mg PO DAILY Qty: 30 3RF clopidogrel 75 mg tablet 75 mg PO DAILY Qty: 30 3RF nitroglycerin 0.4 mg tablet, sublingual 0.4 mg SUBLINGUAL Q5M PRN (Reason: chest pain) Qty: 25 0RF Rx Instructions: As directed up to 3 albuterol sulfate 90 mcg/actuation aerosol powdr breath activated 2 inh INHALATION Q4H PRN (Reason: shortness of breath or wheezing) Qty: 1 1RF methocarbamol 500 mg Tablet 500 mg PO Q12H atorvastatin 80 mg Tablet 80 mg PO DAILY labetalol 200 mg Tablet 200 mg PO BID trazodone 50 mg Tablet 50 mg PO BEDTIME famotidine 40 mg Tablet 40 mg PO DAILY sertraline 50 mg Tablet 50 mg PO DAILY Transfer Attestations Time Spent in Transfer Care: greater than 30 min Quality Metrics Clinical Quality Measures [ Cerebrovascular Accident { Contraindication to Antithrombotic: Patient transfer; Contraindication to Anticoagulation: Medical contraindication; Contraindication to Statin: Patient transfer;}] Coding Level of Care Code 02881 Total time (in minutes) for Discharge: 65 Diagnoses Chest pain R07.9 Hypertension I10 Mixed hyperlipidemia E78.2 Peripheral arterial disease I73.9 Atrial fibrillation I48.91 Acute ischemic left [employer] stroke I63.532 Non-ST elevated myocardial infarction I21.4 CKD (chronic kidney disease) N18.9 CHF (congestive heart failure), NYHA class IV I50.9
--- NOTE | 2024-06-22 16:41 | PC.NURSE ---
Patient being transferred to [facility] for neuro care. Report called to Akash Ferreira RN. Patient transported via [facility]. Patient medicated for pain as documented prior to transport. Spouse at bedside.
== END 2024-06-22 16:57 | disposition short-term general hospital (02) | DRG 280 ==
LOC: ER 18:41 → ICU 18:50 → CSU 06-20 16:26
PROVIDERS: Internal Medicine; Admitting Provider Student in an Organized Health Care Education/Training Program; Emergency Provider Emergency Medicine; PCP Nurse Practitioner; Visit Provider Internal Medicine
PROC: B2111ZZ Fluoroscopy of Multiple Coronary Arteries using Low Osmolar Contrast (ICD-10-PCS; principal; 2024-06-19 19:00)
DX: I21.4 Non-ST elevation (NSTEMI) myocardial infarction (principal); I50.23 Acute on chronic systolic (congestive) heart failure; I63.532 Cerebral infarction due to unspecified occlusion or stenosis of left posterior cerebral artery; I16.1 Hypertensive emergency; I13.0 Hypertensive heart and chronic kidney disease with heart failure and stage 1 through stage 4 chronic kidney disease, or unspecified chronic kidney disease; K55.1 Chronic vascular disorders of intestine; I47.10 Supraventricular tachycardia, unspecified; I48.91 Unspecified atrial fibrillation; N18.9 Chronic kidney disease, unspecified; I25.10 Atherosclerotic heart disease of native coronary artery without angina pectoris; I73.9 Peripheral vascular disease, unspecified; F41.9 Anxiety disorder, unspecified; F32.A Depression, unspecified; E78.2 Mixed hyperlipidemia; J45.909 Unspecified asthma, uncomplicated; E03.8 Other specified hypothyroidism; H53.8 Other visual disturbances; R42 Dizziness and giddiness; R09.02 Hypoxemia; Z11.52 Encounter for screening for COVID-19; Z79.82 Long term (current) use of aspirin; Z79.02 Long term (current) use of antithrombotics/antiplatelets
CPT/HCPCS: 36415; 51798; 70450; 70551; 71045; 71275; 80053; 80061; 81003; 81015; 82607; 82746; 83036; 83540; 83550; 83605; 83735; 83880; 84100; 84145; 84439; 84443; 84481; 84484; 85025; 85347; 87486; 87581; 87633; 92523; 93005; 93306; 93454; 93880; 93925; 93975; 94640; 94664; 96372; 96374; 96375; 96376; 97162; 97530; 99152; 99153; 99291; 99292; C1769; C1887; C1894; J0360; J1170; J1200; J1630; J1644; J1650; J2250; J2270; J2405; J2470; J3010; J3490; J7030; J7613; J7614; J7626; J7644; L1830; Q9967

== ENCOUNTER 2024-08-13 15:41 | Inpatient (IN) | payer MEDICAID, SELFPAY ==
--- NOTE | 2024-08-13 15:42 | ECG_ITS ---
[facility] Test Date: 2024-08-13 Pat Name: Anjali Murrell Department: Room: Gender: Female Invoice Classification Clerk: : 1970 Requested By: Chyna Erickson Order Number: [id number] Olinda MD: Jose Manuel Brar M.D. Measurements Intervals [place] Rate: 76 P: 79 UT: 177 QRS: 87 QRSD: 94 T: 221 QT: 375 QTc: 423 Interpretive Statements SINUS RHYTHM LEFT ATRIAL ENLARGEMENT [-0.15mV P-WAVE IN V1/V2] ST DEVIATION AND MODERATE T-WAVE ABNORMALITY, CONSIDER ANTEROLATERAL ISCHEMIA [-0.1+ mV T-WAVE IN V3-V6] ST DEVIATION AND MARKED T-WAVE ABNORMALITY, CONSIDER INFERIOR ISCHEMIA [-0.5+ mV T-WAVE IN II/aVF] Compared to ECG 06/19/2024 21:54:08 Atrial abnormality now present Sinus tachycardia no longer present T-wave abnormality still present Possible ischemia still present Electronically Signed On 08-13-2024 18:13:27 CDT by Jose Manuel Brar M.D. [id number]
[2024-08-13 15:43] VITALS: BP 130/54; PULSE 75; RESP 16; TEMP 36.7; O2SAT 94; BMI 17.9
--- NOTE | 2024-08-13 15:54 | ED_ITS ---
HPI - SOB/Dyspnea 2 General: Chief Complaint: Shortness of Breath/Dyspnea Stated Complaint: SOB, CP Time Seen by Provider: 08/13/24 15:42 Source: patient and EMS Mode of arrival: EMS Limitations: no limitations History of Present Illness: HPI Narrative: 54-year-old female with a history of cor onary artery disease states she started having chest pain roughly 2 hours ago states it is a pressure pain in the center of her chest she is having some dyspnea with it as well. States last until she received nitro with EMS since then the pain is resolved. She is pain-free currently. She denies any vomiting denies any nausea. Associated symptoms: Reports chest pain; Deny abdominal pain, fever(s), nausea or vomiting Related Data Home Medications Medication Instructions Recorded Confirmed atorvastatin 80 mg tablet 80 mg PO DAILY 06/21/24 06/21/24 famotidine 40 mg tablet 40 mg PO DAILY 06/21/24 06/21/24 labetalol 200 mg tablet 200 mg PO BID 06/21/24 06/21/24 methocarbamol 500 mg tablet 500 mg PO Q12H 06/21/24 06/21/24 sertraline 50 mg tablet 50 mg PO DAILY 06/21/24 06/21/24 trazodone 50 mg tablet 50 mg PO BEDTIME 06/21/24 06/21/24 Previous Rx's Medication Instructions Recorded albuterol sulfate 90 mcg/actuation 2 inh inhalation Q4H PRN shortness 12/17/19 breath activated powder inhaler of breath or wheezing #1 ea amlodipine 10 mg tablet 10 mg PO DAILY #30 tabs 12/17/19 aspirin 81 mg chewable tablet 81 mg PO DAILY #30 tabs 12/17/19 clopidogrel 75 mg tablet 75 mg PO DAILY #30 tabs 12/17/19 nitroglycerin 0.4 mg sublingual 0.4 mg sublingual Q5M PRN chest 12/17/19 tablet pain #25 tabs Allergies Allergy/AdvReac Type Severity Reaction Status Date / Time No Known Allergies Allergy Verified 12/17/19 11:13 Review of Systems 2 Const: Denies: fever(s), chills, body aches or change in appetite ENMT: Denies: throat pain or dental pain Card: Reports: chest pain Resp: Reports: dyspnea GI: Denies: abdominal pain, nausea, vomiting or diarrhea Musc: Denies: neck pain or back pain Skin/Breast: Denies: rash Neuro: Denies: headache(s) PFSH ED 2 PFSH: Medical History CKD (chronic kidney disease) Subclinical hypothyroidism Non-ST elevated myocardial infarction 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 Atherosclerosis of [place] arteries of extremities with intermittent claudication, right leg Arteriosclerosis of both carotid arteries Hypertension Aortic arch atherosclerosis Anxiety and depression Mixed hyperlipidemia Asthma Patent ductus arteriosus Heart disease Surgical History Hx of bilateral cataract extraction Family History Other CAD (coronary artery disease) Cancer Chronic kidney disease (CKD) Diabetes Family history of premature coronary artery disease Hypertension Lung disease Stroke Denies family history of Clotting disorder Dementia Hyperlipidemia Psychiatric illness Suicide Anesthesia complication Bleeding disorder Social History Smoking and tobacco/nicotine status: never used tobacco/nicotine Second hand smoke exposure: No Alcohol intake: former Substance/Drug Use: current Substance/Drug use frequency: few times a month Adopted: No Caregiver/support person: Yes Lives independently: Yes Household members: spouse Housing: House Marital status: Number of children: 0 Highest education level completed: High School Graduate service: No Current occupational status: unemployed Current occupational exposures/hazards: No Pets and animals: Yes Sexually active: Yes Do you think of yourself as: Straight/Heterosexual Current gender identity: Female Special ran needs: No Agree to transfusion: Yes Physical Exam 2 Const: COMMON NORMALS: patient oriented x3 HENMT: COMMON NORMALS: normocephalic and atraumatic HEAD & SCALP: n ormocephalic and atraumatic Eye: COMMON NORMALS: Equal, round and reactive pupils present and EOMs intact bilaterally PUPIL: Yes Equal, round and reactive pupils present Neck/C-Spine: COMMON NORMALS: full ROM and supple Chest: COMMONS NORMALS: normal inspection of the chest and normal palpation of entire chest wall Resp: COMMON NORMALS: normal respiratory effort, No retractions, No use of accessory muscles and clear to auscultation bilaterally AUSCULTATION: clear to auscultation bilaterally Cardio: COMMON NORMALS: regular rate, regular rhythm and No murmurs present (Cardio) RATE: regular rate RHYTHM: regular rhythm GI: COMMON NORMALS: Normal to inspection, nondistended, normoactive bowel sounds present, Soft to palpation, non-tender and no masses PALPATION: Yes Soft to palpation Extremity: COMMON NORMALS: normal to inspection and full ROM Neuro: COMMON NORMALS: patient oriented x3, moves all extremities and no focal motor deficits Psych: COMMON NORMALS: mental status grossly normal, Normal thought process present and cooperative THOUGHT PROCESS: Normal thought process present Skin: COMMON NORMALS: no rashes or lesions noted and no wounds GENERAL SKIN EXAM: no rashes or lesions noted Course 2 Reevaluation(s): Reevaluation #1: I spoke to cardiology Dr. Artis about patient he did review her EKG and were compared to previous EKG as well. He is concerned with the ST depressions there is no signs of STEMI. He wanted me to start on nitro drip along with heparin but plan of admission will follow labs at this time Time: 15:57 Vital Signs: Vital signs: Vital Signs Temperature 98.1 F 08/13/24 15:43 Pulse Rate 84 08/13/24 17:32 Respiratory Rate 19 H 08/13/24 17:32 Blood Pressure 114/79 08/13/24 17:32 Pulse Oximetry 94 08/13/24 15:43 Oxygen Delivery Me thod Room Air 08/13/24 17:32 MDM - SOB/Dyspnea Medical Decision Making Patient presents for chest pain she does have worsening ST depressions on her EKG no ST elevation her pain has been resolved here I am spoke to hospitalist along with finance professional and will admit to cardiac stepdown at this time. Medical Records I reviewed the patient's medical records. Lab Data I reviewed the patient's lab results. 08/13/24 16:16 08/13/24 16:16 Labs/Radiology: Laboratory Results WBC 7.57 10^3/uL (3.29-11.43) 08/13/24 16:16 RBC 4.09 10^6/uL (3.85-5.65) 08/13/24 16:16 Hgb 11.60 g/dL (11.27-16.99) 08/13/24 16:16 Hct 35.5 % (36-47) L 08/13/24 16:16 MCV 86.8 fl (85-98) 08/13/24 16:16 MCH 28.4 pg (27-33) 08/13/24 16:16 MCHC 32.7 g/dL (30-55) 08/13/24 16:16 RDW 14.1 % (12.1-15.1) 08/13/24 16:16 Plt Count 304 10^3/cmm (157-399) 08/13/24 16:16 MPV 9.4 fL (7.4-10.4) 08/13/24 16:16 Neut % (Auto) 69.2 % 08/13/24 16:16 Lymph % (Auto) 22.7 % 08/13/24 16:16 [place] % (Auto) 6.9 % 08/13/24 16:16 Eos % (Auto) 0.4 % 08/13/24 16:16 Baso % (Auto) 0.5 % 08/13/24 16:16 Neut # (Auto) 5.24 10^3/uL (1.8-7.7) 08/13/24 16:16 Lymph # (Auto) 1.7 10^3/uL (0.8-4.8) 08/13/24 16:16 [place] # (Auto) 0.5 10^3/uL (0.2-0.9) 08/13/24 16:16 Eos # (Auto) 0.0 10^3/uL (0.0-0.8) 08/13/24 16:16 Baso # (Auto) 0.0 10^3/uL (0.0-0.1) 08/13/24 16:16 Nucleated RBC % (auto) 0 % 08/13/24 16:16 Nucleated RBCs # 0.0 /100WBC 08/13/24 16:16 PT 12.50 SECONDS (12.1-14.9) 08/13/24 16:16 INR 0.91 (0.8-1.2) 08/13/24 16:16 Sodium 143 mmol/L (136-145) 08/13/24 16:16 Potassium 3.4 mmol/L (3.5-5.1) L 08/13/24 16:16 Chloride 102 mmol/L (98-107) 08/13/24 16:16 Carbon Dioxide 30 mmol/L (22-29) H 08/13/24 16:16 Anion Gap 14.4 (5-19) 08/13/24 16:16 BUN 22 mg/dL (6-20) H 08/13/24 16:16 Creatinine 0.7 mg/dL (0.5-0.9) 08/13/24 16:16 GFR Calculation 87.2 mL/min (90-130) L 08/13/24 16:16 Glucose 151 mg/dL (65-115) H 08/13/24 16:16 Calculated Osmolality 302 mOsm/kg (285-295) H 08/13/24 16:16 Calcium 9.3 mg/dL (8.5-10.5) 08/13/24 16:16 Total Bilirubin 0.3 mg/dL (0.15-1.2) 08/13/24 16:16 AST 15 U/L (0-32) 08/13/24 16:16 ALT 12 U/L (0-33) 08/13/24 16:16 Alkaline Phosphatase 69 U/L (35-105) 08/13/24 16:16 Troponin T Baseline 23 ng/L (0-10) H 08/13/24 16:16 Total Protein 7.4 g/dL (6.6-8.7) 08/13/24 16:16 Albumin 4.7 g/dL (3.5-5.2) 08/13/24 16:16 Globulin 2.7 g/dL (1.3-4.6) 08/13/24 16:16 Lipase 43 U/L (13-60) 08/13/24 16:16 All radiology interpretation(s) finalized by discharge EKG Data EKG 1: I personally reviewed and interpreted this EKG as follows: EKG Interpretation Date: 08/13/24 EKG interpretation time: 15:44 Interpretation: nsr hr 76 no stemi does having worsening st depression compared to previous qrs 94 qtc 405 Discharge Plan Discharge Patient Disposition: Admitted As Inpatient Clinical Impression: Chest pain Prescriptions: No Action amlodipine 10 mg tablet 10 mg PO DAILY Qty: 30 3RF aspirin 81 mg tablet,chewable 81 mg PO DAILY Qty: 30 3RF clopidogrel 75 mg tablet 75 mg PO DAILY Qty: 30 3RF nitroglycerin 0.4 mg tablet, sublingual 0.4 mg SUBLINGUAL Q5M PRN (Reason: chest pain) Qty: 25 0RF Rx Instructions: As directed up to 3 albuterol sulfate 90 mcg/actuation aerosol powdr breath activated 2 inh INHALATION Q4H PRN (Reason: shortness of breath or wheezing) Qty: 1 1RF methocarbamol 500 mg Tablet 500 mg PO Q12H atorvastatin 80 mg Tablet 80 mg PO DAILY labetalol 200 mg Tablet 200 mg PO BID trazodone 50 mg Tablet 50 mg PO BEDTIME famotidine 40 mg Tablet 40 mg PO DAILY sertraline 50 mg Tablet 50 mg PO DAILY Referrals: Khushi Dominguez FNP [Primary Care Provider] - Coding Level of Care Code ED Financial Accounting Manager for Tasha Dockery
--- NOTE | 2024-08-13 16:21 | PC.NURSE ---
pt wt was not in heparin protocol, verified doseage with erik FISHER and George pharmacist
--- NOTE | 2024-08-13 16:29 | XRR_ITS ---
PROCEDURE INFORMATION: Exam: XR Chest Exam date and time: 08/13/2024 4:33 PM Age: 54 years old Clinical indication: Shortness of breath; Additional info: SOB TECHNIQUE: Imaging protocol: Radiologic exam of the chest. Views: 1 view. COMPARISON: CR XR chest 1V portable [id number] 06/20/2024 4:48 PM FINDINGS: Lungs: No focal consolidation. 8 mm nodular opacity in the upper right lung. Pleural spaces: No evidence of pneumothorax. No evidence of pleural effusion. Heart/Mediastinum: Cardiomediastinal silhouette is within normal limits. Bones/joints: No evidence of acute osseous abnormality. XR/XR chest 1V portable [id number] IMPRESSION: 1. No acute cardiopulmonary abnormality. 2. 8 mm nodular opacity in the upper right lung. Correlation with CT is recommended to exclude a suspicious nodule with clinically appropriate.
[2024-08-13 16:30] LABS: Basophils % 0.5 %; Eosinophils % 0.4 %; Hematocrit 35.5 % (36-47); Lymphocytes # 1.7 10^3/uL (0.8-4.8); Lymphocytes % 22.7 %; Mean Corpuscular HGB Conc 32.7 g/dL (30-55); Mean Corpuscular Hemoglobin 28.4 pg (27-33); Mean Corpuscular Volume 86.8 fl (85-98); Mean Platelet Volume 9.4 fL (7.4-10.4); Monocytes # 0.5 10^3/uL (0.2-0.9); Monocytes % 6.9 %; Neutrophils # 5.24 10^3/uL (1.8-7.7); Neutrophils % 69.2 %; Nucleated Red Blood Cells % 0 %; Platelet Count 304 10^3/cmm (157-399); Red Blood Count 4.09 10^6/uL (3.85-5.65); Red Cell Distribution Width 14.1 % (12.1-15.1); White Blood Count 7.57 10^3/uL (3.29-11.43)
[2024-08-13 16:46] LABS: INR 0.91 (0.8-1.2)
[2024-08-13 16:49] LABS: Alanine Aminotransferase 12 U/L (0-33); Albumin Level 4.7 g/dL (3.5-5.2); Alkaline Phosphatase 69 U/L (35-105); Anion Gap 14.4 (5-19); Aspartate Amino Transferase 15 U/L (0-32); Blood Urea Nitrogen 22 mg/dL (6-20); Calcium 9.3 mg/dL (8.5-10.5); Carbon Dioxide 30 mmol/L (22-29); Chloride 102 mmol/L (98-107); Creatinine Clr Calc Pharmacy 56.5785; Globulin 2.7 g/dL (1.3-4.6); Glomerular Filtration Rate 87.2 mL/min (90-130); Glucose 151 mg/dL (65-115); Lipase 43 U/L (13-60); Osmolality Calculated 302 mOsm/kg (285-295); Potassium 3.4 mmol/L (3.5-5.1); Sodium 143 mmol/L (136-145); Total Bilirubin 0.3 mg/dL (0.15-1.2); Total Protein 7.4 g/dL (6.6-8.7)
[2024-08-13 16:51] LABS: Troponin(5th) Baseline 23 ng/L (0-10)
[2024-08-13] MEDS: heparin 5,000 unit/mL INJ 1 mL IVP (17:17)
[2024-08-13] MEDS: heparin drip 25,000 UNIT/500 ML PREMIX 10.92 UNIT IV (17:18)
[2024-08-13] MEDS: nitroglycerin drip 50 MG/250 ML PREMIX IV (17:19)
[2024-08-13 17:32] VITALS: BP 114/79; PULSE 84; RESP 19
--- NOTE | 2024-08-13 17:42 | ECG_ITS ---
[facility] Test Date: 2024-08-13 Pat Name: Anjali Murrell Department: Room: Gender: Female Detail Supervisor: : 1970 Requested By: Chyna Erickson Order Number: [id number] Olinda MD: Jose Manuel Brar M.D. Measurements Intervals [place] Rate: 67 P: 56 NE: 182 QRS: 82 QRSD: 96 T: 211 QT: 395 QTc: 417 Interpretive Statements SINUS RHYTHM POSSIBLE LEFT ATRIAL ENLARGEMENT [-0.1mV P-WAVE IN V1/V2] INCOMPLETE RIGHT BUNDLE BRANCH BLOCK [90+ ms QRS DURATION, TERMINAL R IN V1/V2, 40+ ms S IN I/aVL/V4/V5/V6] ST DEVIATION AND MODERATE T-WAVE ABNORMALITY, CONSIDER ANTEROLATERAL ISCHEMIA [-0.1+ mV T-WAVE IN V3-V6] ST DEVIATION AND MARKED T-WAVE ABNORMALITY, CONSIDER INFERIOR ISCHEMIA [-0.5+ mV T-WAVE IN II/aVF] Compared to ECG 08/13/2024 15:44:13 Incomplete right bundle-branch block now present T-wave abnormality still present Possible ischemia still present Electronically Signed On 08-13-2024 18:17:40 CDT by Jose Manuel Brar M.D. [id number]
--- NOTE | 2024-08-13 17:42 | PM.HP ---
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 As per the patient she woke up with the chest pain and shortness of breath this morning, she describes chest pain as sharp, 9/10 in intensity, mid substernal and right-sided, associated with shortness of breath, no aggravating or relieving factors, lasted for few minutes and then subsided and again started having this afternoon. She was brought in by EMS, where she received nitro and chest pain resolved. She has history of similar chest pains in the past. Denies any history of fever, palpitations, sick contact, urinary or bowel complaints. She has a history of multiple episodes of coronary artery disease in the past, most recent was on 06/22 where she presented with chest pain, hypertensive urgency with systolic blood pressure more than 220 and A-fib with RVR. She received coronary angiography with confirmation of TOOL ROOM GEAR MACHINE OPERATOR to RCA, proximal CX disease was found but with difficult anatomy with anomalous origin stenting was not found to be a safe option with concerns of the stent causing occlusion of LAD. On the same admission she also had headache and dizziness consistent with left PIZZA DELIVERY DRIVER territory infarct. She was transferred to [facility] in [place] needing higher level of care with availability of neurosurgery in case of progression of edema. In ER she was found to have baseline troponin of 23, all other labs were acceptable. Blood pressure of 114/79, saturating 95% on room air. EKG showed ST depressions in lead I, 2, 3, aVF, V3-V6, worsening as compared to EKG on 06/19 Review of Systems General: Reports: 10 or more systems reviewed and unremarkable except in HPI and below Medications/Allergies Home Medications Medication Instructions Recorded Confirmed Last Taken Type albuterol sulfate 90 mcg/actuation 2 inh inhalation Q4H PRN shortness 12/17/19 06/21/24 Unknown Rx breath activated powder inhaler of breath or wheezing #1 ea amlodipine 10 mg tablet 10 mg PO DAILY #30 tabs 12/17/19 06/21/24 06/21/24 Rx aspirin 81 mg chewable tablet 81 mg PO DAILY #30 tabs 12/17/19 06/21/24 06/21/24 Rx clopidogrel 75 mg tablet 75 mg PO DAILY #30 tabs 12/17/19 06/21/24 06/21/24 Rx nitroglycerin 0.4 mg sublingual 0.4 mg sublingual Q5M PRN chest 12/17/19 06/21/24 Unknown Rx tablet pain #25 tabs atorvastatin 80 mg tablet 80 mg PO DAILY 06/21/24 06/21/24 Unknown History famotidine 40 mg tablet 40 mg PO DAILY 06/21/24 06/21/24 Unknown History labetalol 200 mg tablet 200 mg PO BID 06/21/24 06/21/24 Unknown History methocarbamol 500 mg tablet 500 mg PO Q12H 06/21/24 06/21/24 Unknown History sertraline 50 mg tablet 50 mg PO DAILY 06/21/24 06/21/24 Unknown History trazodone 50 mg tablet 50 mg PO BEDTIME 06/21/24 06/21/24 Unknown History Allergies Allergy/AdvReac Type Severity Reaction Status Date / Time No Known Allergies Allergy Verified 12/17/19 11:13 PFSH Acute PFSH: Medical History CKD (chronic kidney disease) Subclinical hypothyroidism Non-ST elevated myocardial infarction 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 arteries of extremities with intermittent claudication, right leg Arteriosclerosis of both carotid arteries Hypertension Aortic arch atherosclerosis Anxiety and depression Mixed hyperlipidemia Asthma Patent ductus arteriosus Heart disease Surgical History Hx of bilateral cataract extraction Family History Other CAD (coronary artery disease) Cancer Chronic kidney disease (CKD) Diabetes Family history of premature coronary artery disease Hypertension Lung disease Stroke Denies family history of Clotting disorder Dementia Hyperlipidemia Psychiatric illness Suicide Anesthesia complication Bleeding disorder Social History Smoking and tobacco/nicotine status: never used tobacco/nicotine Second hand smoke exposure: No Alcohol intake: former Substance/Drug Use: current Substance/Drug use frequency: few times a month Adopted: No Caregiver/support person: Yes Lives independently: Yes Household members: spouse Housing: House Marital status: Number of children: 0 Highest education level completed: High School Graduate service: No Current occupational status: unemployed Current occupational exposures/hazards: No Pets and animals: Yes Sexually active: Yes Do you think of yourself as: Straight/Heterosexual Current gender identity: Female Special ran needs: No Agree to transfusion: Yes Vitals/I&O/Wt Last Vital Signs Temp 98.1 F 08/13/24 15:43 Pulse 84 08/13/24 17:32 Resp 19 H 08/13/24 17:32 BP 114/79 08/13/24 17:32 Pulse Ox 94 08/13/24 15:43 O2 Del Method Room Air 08/13/24 17:32 Weight last 48 hrs Weight 39.009 kg Physical Exam Narrative: She is alert awake oriented x 3, anxious, not in acute distress Chest clear to auscultation bilaterally Cardiovascular normal heart sounds, pansystolic murmur present Abdomen soft, nontender nondistended normal bowel sounds Extremities no edema noted bilateral lower extremities Data 08/13/24 16:16 08/13/24 16:16 A&P Assessment and plan (1) Chest pain: (2) CHF (congestive heart failure), NYHA class IV: (3) CKD (chronic kidney disease): (4) Acute ischemic left PIZZA DELIVERY DRIVER stroke: (5) Atrial fibrillation: (6) Peripheral arterial disease: (7) Coronary artery disease: (8) Asthma: (9) Mixed hyperlipidemia: (10) Hypertension: (11) Anxiety and depression: Plan Anjali Murrell is a 54 year old female with history of coronary disease, 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 #Chest pain-with extensive cardiac history EKG shows worsening ST depressions Cardiology consulted in ER Patient will be n.p.o. past midnight for possible coronary angiogram in a.m. Continue IV heparin drip and nitroglycerin drip as per cardiology recommendations Follow-up 2 hours and 6-hour troponins. Continuous cardiac telemetry monitoring Continue SENIOR NAVAL PARACHUTIST aspirin, statin, Plavix. ECHO 07/04 1-Normal left ventricular size, systolic function with no regional wall motion abnormalities. Estimated ejection fraction 50 to 55%. Moderate left ventricle hypertrophy. Normal diastolic filling pattern. 2-Moderately increased left atrial size. 3-Thickened mitral valve. Mild to moderate mitral valve regurgitation. 4-Right atrial pressure is around 10 mm of mercury. # Hypertension-will hold SENIOR NAVAL PARACHUTIST amlodipine and labetalol for now Continue nitroglycerin drip. # Anxiety-will hold SENIOR NAVAL PARACHUTIST sertraline and trazodone P.o. lorazepam 0.5 mg 3 times daily as needed DVT prophylaxis, already on heparin drip GI prophylaxis with p.o. Protonix daily CODE STATUS discussed with patient and , she is full code for now Attestations Medical Necessity Statement*: She needs continued hospitalization anticipating crossing 2 midnights for management and workup for chest pain with monitoring and coronary angiogram. Time Spent in Patient Care: 50 minutes Coding Level of Care Code Acute Code for g Fwd Diagnoses Chest pain R07.9 CHF (congestive heart failure), NYHA class IV I50.9 CKD (chronic kidney disease) N18.9 Acute ischemic left PIZZA DELIVERY DRIVER stroke I63.532 Atrial fibrillation I48.91 Peripheral arterial disease I73.9 Coronary artery disease I25.10 Asthma J45.909 Mixed hyperlipidemia E78.2 Hypertension I10 Anxiety and depression F41.9; F32.9 Time Spent (min) 50
[2024-08-13] MEDS: sodium chloride 0.9% 1,000 ML 999 ML IV (18:06)
[2024-08-13 18:49] LABS: Troponin 5 2HR Delta 0 ABS# (0-10)
--- NOTE | 2024-08-13 19:05 | PC.NURSE ---
pt is NPO after midnight. RN brought pt sandwhich and pudding cup at 1900.
[2024-08-13 19:48] VITALS: BP 183/92; PULSE 77; RESP 19; TEMP 36.6; O2SAT 93
[2024-08-13 19:51] VITALS: BP 163/117; PULSE 83; RESP 18; O2SAT 91
[2024-08-13 19:52] VITALS: BP 160/68; PULSE 78; O2SAT 95
[2024-08-13] MEDS: LORazepam 0.5 mg Tablet PO (20:26)
--- NOTE | 2024-08-13 20:32 | PM.CONSULT ---
Providers/Reason For Consult Consulting Physician/Specialty*: Cardiology Reason for Consult*: chest pain with dynamic EKG changes Requesting Physician: Dr. Clemente Attending Physician: Monique Mcclain MD Primary Care Provider: ABA Mejia History of Present Illness History of Present Illness Anjali Murrell is a 54 year old female past medical history significant for hypertension hyperlipidemia coronary artery disease highly calcified aorta with small size CHF presented with chest pain and dynamic EKG changes in the inferolateral region showing ST depression, patient was ruled out for acute coronary syndrome started on nitro drip and IV heparin, currently chest pain-free. Recently patient underwent left heart catheterization noted to have moderate to severe ostial stenosis of the left circumflex due to proximity of the vessel with ostial LAD takeoff it was thought in the past to manage patient medically as placing stent may can compromise flow in the LAD, patient says she continues to do worse, mild to moderate exertion bring chest pain and shortness of breath on now to the extent that chest pain happens at rest. When comparing the prior EKG inferolateral ST changes are very prominent and new suggestive of ongoing ischemia. Since patient continues to do worse and because of the fact inferolateral dynamic EKG changes are present it appeared to me patient is suffering from unstable angina therefore I have detailed discussion with the patient and her family by bedside. They are fully aware of high risk such as 10 to 15% mortality including stroke GA heart failure arrhythmia and worst-case scenario . She says she is not having a quality of life therefore she would like to take her risk and proceed with it. Will keep her n.p.o. overnight with the intent of possible left heart cath in the morning. Review of Systems General: Reports: 10 or more systems reviewed and unremarkable except in HPI and below Const: Denies: fever(s), chills, body aches or change in appetite Eyes: Denies: photophobia ENMT: Denies: throat pain, enlarged tonsils or dental pain Card: Reports: chest pain Resp: Reports: dyspnea GI: Denies: abdominal pain, nausea, vomiting or diarrhea Musc: Denies: neck pain or back pain Skin/Breast: Denies: rash Neuro: Denies: headache(s) Psych: Denies: sleeping more All/Imm: Denies: acute wheezing Medications/Allergies Home Medications Medication Instructions Recorded Confirmed Last Taken Type albuterol sulfate 90 mcg/actuation 2 inh inhalation Q4H PRN shortness 12/17/19 08/13/24 08/13/24 Rx breath activated powder inhaler of breath or wheezing #1 ea aspirin 81 mg chewable tablet 81 mg PO DAILY #30 tabs 12/17/19 08/13/24 08/13/24 Rx clopidogrel 75 mg tablet 75 mg PO DAILY #30 tabs 12/17/19 08/13/24 08/13/24 Rx nitroglycerin 0.4 mg sublingual 0.4 mg sublingual Q5M PRN chest 12/17/19 08/13/24 08/13/24 Rx tablet pain #25 tabs atorvastatin 80 mg tablet 80 mg PO DAILY 06/21/24 08/13/24 08/13/24 History famotidine 40 mg tablet 40 mg PO DAILY 06/21/24 08/13/24 08/13/24 History methocarbamol 500 mg tablet 500 mg PO Q12H 06/21/24 08/13/24 08/13/24 History sertraline 50 mg tablet 50 mg PO DAILY 06/21/24 08/13/24 08/13/24 History trazodone 50 mg tablet 50 mg PO BEDTIME 06/21/24 08/13/24 08/13/24 History cholecalciferol (vitamin D3) 125 125 mcg PO DIRECTED 08/13/24 08/13/24 08/11/24 History mcg (5,000 unit) tablet (Vitamin D3) furosemide 40 mg tablet 40 mg PO DAILY 08/13/24 08/13/24 08/13/24 History levothyroxine 75 mcg tablet 75 mcg PO DAILY 08/13/24 08/13/24 08/13/24 History losartan 25 mg tablet 12.5 mg PO DAILY 08/13/24 08/13/24 08/13/24 History metoprolol tartrate 12.5 mg PO BID 08/13/24 08/13/24 08/13/24 History Allergies Allergy/AdvReac Type Severity Reaction Status Date / Time No Known Allergies Allergy Verified 12/17/19 11:13 Current Medications Generic Name Dose Route Start Last Admin Trade Name Freq PRN Reason Stop Dose Admin Nitroglycerin/Dextrose 50 mg in 250 mls @ 0 mls/hr 08/13/24 16:00 08/13/24 19:47 Nitroglycerin Drip IV 0 mcg/min .Q0M ROHIT 0 mls/hr Titration Protocol Per Protocol Heparin Sodium/Sodium Chloride 25,000 unit in 500 mls @ 0 mls/hr 08/13/24 16:00 08/13/24 17:18 Heparin Drip IV 14 unit/kg/hr CONT ROHIT 10.92 mls/hr Administration Protocol Per Protocol Lorazepam 0.5 mg 08/13/24 18:09 08/13/24 20:26 Lorazepam 0.5 Mg Tablet PO 0.5 mg TID PRN Administration ANXIETY PFSH Acute PFSH: Medical History CKD (chronic kidney disease) Subclinical hypothyroidism Non-ST elevated myocardial infarction 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 Atherosclerosis of [place] arteries of extremities with intermittent claudication, right leg Arteriosclerosis of both carotid arteries Hypertension Aortic arch atherosclerosis Anxiety and depression Mixed hyperlipidemia Asthma Patent ductus arteriosus Heart disease Surgical History Hx of bilateral cataract extraction Family History Other CAD (coronary artery disease) Cancer Chronic kidney disease (CKD) Diabetes Family history of premature coronary artery disease Hypertension Lung disease Stroke Denies family history of Clotting disorder Dementia Hyperlipidemia Psychiatric illness Suicide Anesthesia complication Bleeding disorder Social History Smoking and tobacco/nicotine status: never used tobacco/nicotine Second hand smoke exposure: No Alcohol intake: former Substance/Drug Use: current Substance/Drug use frequency: few times a month Adopted: No Caregiver/support person: Yes Lives independently: Yes Household members: spouse Housing: House Marital status: Number of children: 0 Highest education level completed: High School Graduate service: No Current occupational status: unemployed Current occupational exposures/hazards: No Pets and animals: Yes Sexually active: Yes Do you think of yourself as: Straight/Heterosexual Current gender identity: Female Special ran needs: No Agree to transfusion: Yes Dietary Habits: Current diet type/program: regular Caffeine: No High-fat food intake: 0-1 times daily Daily servings fruits/vegetables: 2-4 Daily servings of milk/calcium: 2-4 Eating out: 1-3 times/week Reads food labels: usually or always During the past year weight has: decreased > 10 lbs Exercise: What type of physical activity do you participate in?: walking Physical activity functional status: independent ambulation and normal ROM and activity How many days of moderate to strenuous exercise, like a brisk walk, did you do in the last 7 days: 0 Safety: Seatbelt use: always Helmet use: No Drive intoxicated or ride with intoxicated city bus driver?: never Home Safety: Water heater temperature set < 120 degrees: Yes Working smoke detector in home: Yes Fire extinguisher in home: Yes Carbon monoxide detector in home: Yes Firearms in home: Yes Personal Safety: Do you feel safe at home: Yes Victim of physical abuse: No Victim of emotional abuse: No Victim of sexual abuse: No Would you like help information on resources?: No Vitals/I&O/Wt Last Vital Signs Temp 97.9 F 08/13/24 19:48 Pulse 78 08/13/24 19:52 Resp 18 08/13/24 19:51 BP 160/68 08/13/24 19:52 Pulse Ox 95 08/13/24 19:52 O2 Del Method Room Air 08/13/24 19:48 08/13/24 08/13/24 08/13/24 06:59 14:59 22:59 Intake Total 1007.4 / 1007.4 Balance 1007.4 / 1007.4 Weight last 48 hrs Weight 88 lb 9.6 oz Weight 86 lb Physical Exam Const: OTHER: GENERAL: Patient is alert, awake and oriented x3. Thin and lean female laying in the bed HEART: Regular S1 and S2. No murmur, rub or gallop. LUNGS: Clear to auscultate bilaterally. ABDOMEN: Soft, nontender and nondistended. Positive bowel sounds. No guarding, rebound or tenderness. CENTRAL NERVOUS SYSTEM: Grossly nonfocal. EXTREMITIES: Lower extremities with out edema bilaterally. Right radial artery 1+ Data 08/13/24 16:16 08/13/24 16:16 EKG 1: My Interpretation: Sinus rhythm normal axis inferolateral ST depression suggestive of ischemia, when compared to the prior EKG ST depression is new A&P Assessment and plan (1) Chest pain: Chest pain suggestive of unstable angina along with dynamic EKG changes, will continue IV heparin and IV nitroglycerin, continue aspirin and statin will optimize medication to control blood pressure better. Will be n.p.o. overnight left heart catheterization in the morning (2) CHF (congestive heart failure), NYHA class IV: Well compensated continue medical (3) CKD (chronic kidney disease): Improved, continue to monitor (4) Atrial fibrillation: Appear to be in sinus rhythm. Continue to monitor (5) Hypertension: Will optimize medications to control the blood pressure better (6) Atherosclerosis of [place] arteries of extremities with intermittent claudication, right leg: Denies any pain at rest continue to monitor Coding Level of Care Code Acute Code for [facility] Fwd Diagnoses Chest pain R07.9 CHF (congestive heart failure), NYHA class IV I50.9 CKD (chronic kidney disease) N18.9 Atrial fibrillation I48.91 Hypertension I10 Atherosclerosis of [place] arteries of extremities with intermittent claudication, right leg I70.211
[2024-08-13 21:16] LABS: Partial Thromboplastin Time 68.6 SECONDS (23.9-36.7)
--- NOTE | 2024-08-13 21:42 | ECG_ITS ---
[facility] Test Date: 2024-08-13 Pat Name: Anjali Murrell Department: Room: 107 Gender: Female Director Bioinformatics: : 1970 Requested By: Chyna Erickson Order Number: [id number] Olinda MD: Emmanuel Holley M.D. Measurements Intervals [place] Rate: 85 P: 78 [place]: 200 QRS: 87 QRSD: 94 T: 219 QT: 367 QTc: 437 Interpretive Statements SINUS RHYTHM LEFT ATRIAL ENLARGEMENT [-0.15mV P-WAVE IN V1/V2] INCOMPLETE RIGHT BUNDLE BRANCH BLOCK [90+ ms QRS DURATION, TERMINAL R IN V1/V2, 40+ ms S IN I/aVL/V4/V5/V6] ST DEVIATION AND MODERATE T-WAVE ABNORMALITY, CONSIDER ANTEROLATERAL ISCHEMIA [-0.1+ mV T-WAVE IN V3-V6] ST DEVIATION AND MODERATE T-WAVE ABNORMALITY, CONSIDER INFERIOR ISCHEMIA [-0.1+ mV T-WAVE IN II/aVF] Compared to ECG 08/13/2024 17:54:39 No significant changes Electronically Signed On 08-15-2024 21:12:26 CDT by Emmanuel Holley M.D. [id number]
[2024-08-13 23:12] LABS: Partial Thromboplastin Time 53.5 SECONDS (23.9-36.7)
[2024-08-13 23:15] LABS: Troponin 5 6HR 29.37 ng/L (0-10); Troponin 5 6HR Delta 6.37 ng/L (0-12)
[2024-08-14] VITALS (21 sets, daily range): BP systolic 103–153; BP diastolic 49–87; PULSE 61–103; RESP 16–27; TEMP 36.4–36.7; O2SAT 93–100
--- NOTE | 2024-08-14 03:47 | PC.NURSE ---
patient was placed on 2L nasal cannula while asleep due to O2 dropping to 86%
[2024-08-14 05:16] LABS: Basophils # 0.1 10^3/uL (0.0-0.1); Basophils % 0.8 %; Eosinophils # 0.1 10^3/uL (0.0-0.8); Eosinophils % 1.2 %; Hematocrit 31.9 % (36-47); Lymphocytes # 2.2 10^3/uL (0.8-4.8); Lymphocytes % 36.4 %; Mean Corpuscular HGB Conc 32.6 g/dL (30-55); Mean Corpuscular Volume 88.9 fl (85-98); Mean Platelet Volume 9.2 fL (7.4-10.4); Monocytes # 0.5 10^3/uL (0.2-0.9); Monocytes % 8.6 %; Neutrophils # 3.22 10^3/uL (1.8-7.7); Nucleated Red Blood Cells % 0 %; Platelet Count 217 10^3/cmm (157-399); Red Blood Count 3.59 10^6/uL (3.85-5.65); White Blood Count 6.07 10^3/uL (3.29-11.43)
[2024-08-14 05:26] LABS: Partial Thromboplastin Time 67.5 SECONDS (23.9-36.7)
[2024-08-14 05:33] LABS: Anion Gap 11.8 (5-19); Blood Urea Nitrogen 16 mg/dL (6-20); Calcium 8.9 mg/dL (8.5-10.5); Carbon Dioxide 30 mmol/L (22-29); Chloride 104 mmol/L (98-107); Creatinine Clr Calc Pharmacy 70.8444; Glomerular Filtration Rate 104.2 mL/min (90-130); Glucose 104 mg/dL (65-115); Magnesium 1.7 mg/dL (1.7-2.3); Osmolality Calculated 295 mOsm/kg (285-295); Potassium 3.8 mmol/L (3.5-5.1); Sodium 142 mmol/L (136-145)
[2024-08-14 06:04] LABS: NT Pro B Type Natriuretic Pept 6285 pg/mL (0-125)
[2024-08-14] MEDS: clopidogrel 75 mg Tablet PO (09:32)
[2024-08-14] MEDS: pantoprazole DR 40 mg Tablet PO (09:33)
[2024-08-14] MEDS: atorvastatin 40 mg Tablet 80 MG PO (09:33)
[2024-08-14] MEDS: aspirin 81 mg Chew Tablet PO (09:33)
[2024-08-14] MEDS: losartan 50 mg Tablet PO (09:33)
--- NOTE | 2024-08-14 11:13 | P.PN_ITS ---
Subjective 2 Subjective: No acute overnight events noted. Seen her at bedside this morning. Denies any complaint of headache or chest pain this morning. Medications: Reviewed: Yes Vitals/I&O/Wt Last Vital Signs Temp 98.1 F 08/14/24 03:46 Pulse 66 08/14/24 07:57 Resp 18 08/14/24 07:57 BP 116/53 08/14/24 09:33 Pulse Ox 99 08/14/24 07:57 O2 Del Method Nasal Cannula 08/14/24 07:57 O2 Flow Rate 2 08/14/24 07:57 08/13/24 08/14/24 08/14/24 22:59 06:59 14:59 Intake Total 1487.4 / 1487.4 140.592 / 1627.992 60 / 60 Balance 1487.4 / 1487.4 140.592 / 1627.992 60 / 60 Weight last 48 hrs Weight 41.867 kg Weight 40.188 kg Weight 39.009 kg Physical Exam 2 Narrative: She is alert awake oriented x 3, anxious, not in acute distress Chest clear to auscultation bilaterally Cardiovascular normal heart sounds, pansystolic murmur present Abdomen soft, nontender nondistended normal bowel sounds Extremities no edema noted bilateral lower extremities Data 08/14/24 05:06 08/14/24 05:06 A&P Assessment and plan (1) Chest pain: (2) CHF (congestive heart failure), NYHA class IV: (3) CKD (chronic kidney disease): (4) 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 #Chest pain-with extensive cardiac history EKG shows worsening ST depressions Cardiology consulted in ER Patient will be n.p.o. past midnight for possible coronary angiogram in a.m. Continue IV heparin drip and nitroglycerin drip as per cardiology recommendations Follow-up 2 hours and 6-hour troponins. Continuous cardiac telemetry monitoring Continue FOOD MANAGER aspirin, statin, Plavix. ECHO 07/04 1-Normal left ventricular size, systolic function with no regional wall motion abnormalities. Estimated ejection fraction 50 to 55%. Moderate left ventricle hypertrophy. Normal diastolic filling pattern. 2-Moderately increased left atrial size. 3-Thickened mitral valve. Mild to moderate mitral valve regurgitation. 4-Right atrial pressure is around 10 mm of mercury. # Hypertension-will hold FOOD MANAGER amlodipine and labetalol for now Continue nitroglycerin drip. # Anxiety-will hold FOOD MANAGER sertraline and trazodone P.o. lorazepam 0.5 mg 3 times daily as needed DVT prophylaxis, already on heparin drip GI prophylaxis with p.o. Protonix daily CODE STATUS discussed with patient and , she is full code for now 08/14-cardiology consult appreciated. She is n.p.o. past midnight for coronary angiogram this morning. Will follow-up cardiology for further recommendations. Continue to monitor. Nitroglycerin drip discontinued continue heparin drip for now. Attestations 2 Medical Necessity Statement*: She needs continued hospitalization anticipating crossing 2 midnights for management and workup for chest pain with monitoring and coronary angiogram. 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
[2024-08-14 11:15] LABS: Partial Thromboplastin Time 62.4 SECONDS (23.9-36.7)
--- NOTE | 2024-08-14 13:42 | XACV_ITS ---
Exam Room: 2 Ht: 147 cm Wt: 42 kg BSA: 1.31 m2 Gender: Female : 1970 Any Known Allergies: No known allergies Exam Priority: Routine Procedure(s): Procedure Description: Diagnostic procedure Procedure Description: PCI procedure Procedure Description: Drug Eluting Coronary Stent Procedure Description: PTCA Procedure Description: Miscellaneous Procedure Description: ACT Procedure Description: Coronary Angiography Debbi BROOKS; Diagnostic Cath Status: Urgent Diagnostic Findings * Coronary angiographyIt was a difficult engagement due to small and calcified aorta plus patient has severe peripheral vascular disease therefore left common femoral artery approach was adopted#1 Left main is short with luminal irregularity without significant stenosis #2 LAD has luminal irregularity without significant stenosis #3 Left circumflex has high-grade severe ostial stenosis it is a small to moderate caliber vessel, groove circumflex and obtuse marginal has a mid moderate stenosis but those are small caliber vessel not amenable to intervention #4 RCA has eccentric takeoff difficult engage as patent previously placed stent in proximal to mid segment without significant in-stent restenosis, there appeared to be proximal 40 to 50% stenosis not appear to be significant. PCI Status: Urgent PCI Indication: New Onset Angina <= 2 months Syntax Score: Intermediate Conclusions 1. Successful ostial Left circumflex, using 2 wire technique in order to protect LAD first wire was cross into LAD in order to anchor the guide second wire was then cross into circumflex.. Ostial circumflex lesion was prepared with 2.0 x 12 mm Mini TREK balloon, followed by deployment of PATRICK [2.25 x 12 mm stent posted at high ADELAIDA of 12 mm. Stent was then post-dilated with serial dilatation of NC MDT EUPHORA 2.5 x 8 at 12 ADELAIDA in its entire length to ensure proper approximation. Excellent angiographic result with MARCIA-3 flow was achieved. Recommendations * 1-Return to inpatient for close monitoring and routine cath care 2-Risk factor modification for secondary prevention 3-Statin and aspirin 81 mg life-long, if tolerated 4-Continue Plavix 75mg p.o. daily for at least one year. We will assess at the end of one year again to continue if further or not 5-Continue optimal medical management 6-Follow up with Dr. Brar in four weeks and your primary care in 10 days. Interventional RX Recommendation: PCI w/o planned CABG Diagnostic RX Recommendation: PCI w/o planned CABG Pressures Phase:Rest AO : 105 / 38 ( 65 ) @ 3:36:00 PM 102 / 36 ( 63 ) @ 3:37:00 PM 155 / 75 ( 111 ) @ 3:42:00 PM 216 / 80 ( 142 ) @ 3:59:00 PM 155 / 70 ( 110 ) @ 4:03:00 PM 64 / 33 ( 45 ) @ 4:04:00 PM 126 / 47 ( 78 ) @ 4:13:00 PM 80 / 52 ( 66 ) @ 4:14:00 PM 160 / 91 ( 93 ) @ 4:15:00 PM 123 / 74 ( 96 ) @ 4:17:00 PM 123 / 49 ( 83 ) @ 4:20:00 PM Clinical Evaluation EBL: 5mL-10mL Procedural Details Pre-Procedure Time Out. Identified patient by full name and date of as verbalized by the patient/guarantor. Does the consent match the physician's order: Yes. Accurate & Complete Informed Consent: Yes. Inpatient/Outpatient History & Physical on Chart: Yes. If H&P is completed, is and addenduem needed: No; If yes, is the addendum complete: N/A. Visualize and Verify Site with Patient/Guarantor: N/A. Relevant Radiology Images available: Yes. Pre-op teaching completed and patient verbalized understanding. The risks, benefits, and alternatives of sedation and/or procedure were discussed by physician. The patient agrees to continue. Procedure started. [place] Clinical Fraility Score: 5: Mildly Frail. 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 Chest Pain Symptom Assessment: Atypical Angina. Correct patient, site and procedure confirmed by cath team. Current diagnosis: Chest Pain. PERRLA. Strong, equal hand data entry bilaterally. Lungs clear x 5 lobes. IV Site on Arrival: 20 gauge in the left anticubital. IV Site on Arrival: 22 gauge in the right forearm. IV Fluids: 0.9% NaCl at KVO. 0 mL infused prior to ship laborer. Oxygen started at 2liters/min via nasal canula. bilateral groins was prepped with chloroprep then draped in the usual sterile fashion. Current Diagnosis : Chest Pain. Baseline sample Acquired. HR: 82 BPM. Physician arrived. AP Pads placed on patient. Physician scrubbed in. Immediate Pre-Procedure Time Out. Correct Patient: Yes; Correct Procedure: Yes; Correct Site: Yes; Correct Patient Position: Yes; Correct Supplies: Yes; Dried Flammable Prep: Yes; Blood Products Available: N/A;. Lidocaine 1% infiltrated to the right groin. Ultrasound being used to obtain arterial access. Arterial access obtained with micropuncture set. Wire unable to advance. Wire and needle removed. Manual pressure held on access site. Arterial access obtained with micropuncture set. Wire unable to advance. Wire and needle removed. Manual pressure held on access site. Lidocaine 1% infiltrated to the left groin. Arterial access obtained with micropuncture set. A 5 tunisian TIG catheter in over wire. Multiple views taken of left coronary artery. Catheter redirected to the RCA. Catheter removed over the standard wire. A 5 tunisian 3DRC catheter in over wire. Multiple views taken of right coronary artery. Catheter removed over the standard wire. 6 tunisian XB 3 SH guide catheter was inserted over the wire. ACT drawn. Results 141 seconds. Therapeutic limits - pre-heparin administration 90-150 seconds and monitoring heparin during a vascular procedure >250 seconds. Guide catheter out. 6 tunisian AL 0.75 SH guide catheter was inserted over the wire. Guide catheter out. 6 tunisian JL 3 guide catheter was inserted over the wire. Runthrough guidewire was advanced through the guide catheter to the LAD. A second Runthrough guidewire was advanced through the guide catheter to lesion in the prox Circ. Inflation number : 1 A AB MINI TREK 2.00X12 RX BALLOON was prepped and advanced across the Prox CX , then inflated to 8 ADELAIDA for 0:12 seconds. Inflation number: 2 The AB MINI TREK 2.00X12 RX BALLOON was reinflated across the Prox CX, to 8 ADELAIDA for 0:06 seconds. Results checked. Inflation Number : 3 A MDT R PATRICK 2.25X12 ARGELIA -Lot Number# _[id number] EXP: 02/26/2027 was prepped and advanced across the Prox CX. The stent was deployed at 12 ADELAIDA for 0:07 seconds. Stent balloon out over wire. Results checked. Inflation number : 4 A MDT NC EUPHORA RX [id number] BALLOON was prepped and advanced across the Prox CX , then inflated to 8 ADELAIDA for 0:08 seconds. Inflation number: 5 The MDT NC EUPHORA RX 2.64H60BL BALLOON was reinflated across the Prox CX, to 12 ADELAIDA for 0:11 seconds. Inflation number: 6 The MDT NC EUPHORA RX [id number] BALLOON was reinflated across the Prox CX, to 12 ADELAIDA for 0:07 seconds. Balloon out. Results checked. Wires out. ACT drawn. Results out of range high seconds. Therapeutic limits - pre-heparin administration 90-150 seconds and monitoring heparin during a vascular procedure >250 seconds. Guide catheter out. A Left femoral angiogram was performed to determine safe placement of closure device. Physician scrubbed out. A Suture was successful obtaining hemostatsis at the Left Femoral artery insertion site. ACT drawn. Results 298 seconds. Therapeutic limits - pre-heparin administration 90-150 seconds and monitoring heparin during a vascular procedure >250 seconds. Sheath(s) sutured into position with 2-0 silk and sterile 4x4's and Op-site applied over the site. No oozing or signs and symptoms of hematoma noted. Post Procedure: Pulses reassessed and unchanged. Arterial sheath flushed and connected to tranducer and pressure bag with heparinized saline. PERRLA. Strong, equal hand data entry bilaterally. No VTE prophylaxis required. Medication's Wasted: Other = Neosyneohrine 9.9 mg. Medication's Wasted: Other = Hydralazine 10 mg. Medication's Wasted: Other = Amiodarone 150 mg. Medication's Wasted: Heparin = 4000 units. Post-op diagnosis: Stent to CX. Complications: None. Estimated blood loss: 5mL-10mL. Responsiveness - Normal response to verbal stimuli; alert and oriented, PERRLA. Airway - Unaffected, no intervention required; spontaneous ventilation. Circulation: W/N/L, pulses unchanged. Nausea/Vomiting: No. Procedure completed. Vital chart was stopped. Patient transferred by bed to CPRU. Access Site Site: Left Femoral artery Sheath Size: 6 Fr Hemostasis Method: Suture Hemostasis Success: Successful Procedure Medications Start: 2:00 PM Stop: 2:00 PM Medication: Fentanyl Amount: 25 mcg Route: I.V. Start: 2:00 PM Stop: 2:00 PM Medication: Versed Amount: 1 mg Route: I.V. Start: 2:15 PM Stop: 2:15 PM Medication: Versed Amount: 1 mg Route: I.V. Start: 2:18 PM Stop: 2:18 PM Medication: Fentanyl Amount: 25 mcg Route: I.V. Start: 2:26 PM Stop: 2:26 PM Medication: Versed 1 mg and Fentanyl 25 mcg Amount: 1 Route: I.V. Start: 2:50 PM Stop: 2:50 PM Medication: Hydralazine Amount: 10 mg Route: I.V. Start: 2:59 PM Stop: 2:59 PM Medication: Heparin Amount: 5000 units Route: I.V. Start: 3:01 PM Stop: 3:01 PM Medication: Versed 1 mg and Fentanyl 25 mcg Amount: 1 Route: I.V. Start: 3:08 PM Stop: 3:08 PM Medication: Neosynephrine Amount: 100 mcg Route: I.V. Start: 3:35 PM Stop: 3:35 PM Medication: Zofran (ondansetron) Amount: 4 mg Route: I.V. I, the attending physician, have reviewed and verified all procedure medications. Yes, all medications given per verbal order History/Risk Factors Hypertension: Yes Dyslipidemia: Yes Peripheral Arterial Disease (PAD): Yes Myocardial Infarction ([place]): No Obesity: No Renal Disease: No Tobacco Use: Never Prior Interventions PCI: Yes CABG: No Valve Surgery: No Date of PCI: 06/19/2024 Report Signatures Finalized by Barry Werner MD on 08/15/2024 05:41 PM
--- NOTE | 2024-08-14 13:51 | PC.NURSE ---
to cardiac medical laboratory technician via bed at 1345
--- NOTE | 2024-08-14 13:52 | W.PM.OPSUD ---
Surgery/Procedure H&P Update DATE OF PROCEDURE: August 14, 2024 DATE H&P PERFORMED: 08/13/24 H&P UPDATE INFORMATION: I have reviewed H&P completed within last 30 days, I have examined patient prior to procedure, No changes to prior documentation and Changes to prior documentation as noted here PATIENT REASSESSED PRIOR TO SEDATION, WITH NO CHANGE NOTED: Yes PHYSICAL EXAM: alert, oriented x 3, clear to auscultation bilaterally, regular rate & rhythm and operative site marked AIRWAY EVAL/ANESTHESIA PLAN: ASA II, Risks, benefits & alternatives of sedation and/or procedure discussed and Patient agrees to continue as planned ADDITIONAL INFORMATION: Patient has been explained all risk-benefit and alternative for the procedure. Due to anatomy of the coronary arteries aorta peripheral vascular disease patient is high risk for mortality morbidity including stroke major bleed vascular injury retroperitoneal bleed hematoma laceration thromboembolic phenomena limb ischemia and worst-case scenario ablation. Patient agrees to it she fully understand and would like to proceed with it.
--- NOTE | 2024-08-14 15:37 | P.PN_ITS ---
Subjective 2 Subjective: For unstable angina patient underwent left heart catheterization through left groin approach, successful percutaneous angioplasty followed by stent placement in ostial circumflex postdilated with noncompliant balloon with excellent angiographic result was performed. MARCIA-3 flow was noted without any complication. Patient tolerated procedure well and transferred to CSU Medications: Reviewed: Yes Vitals/I&O/Wt Last Vital Signs Temp 98.1 F 08/14/24 03:46 Pulse 71 08/14/24 11:28 Resp 20 H 08/14/24 11:28 BP 125/62 08/14/24 11:28 Pulse Ox 100 08/14/24 11:28 O2 Del Method Nasal Cannula 08/14/24 11:28 O2 Flow Rate 2 08/14/24 11:28 08/14/24 08/14/24 08/14/24 06:59 14:59 22:59 Intake Total 140.592 / 1627.992 133 / 133 Balance 140.592 / 1627.992 133 / 133 Weight last 48 hrs Weight 92 lb 4.8 oz Weight 88 lb 9.6 oz Weight 86 lb Physical Exam 2 Const: COMMON NORMALS: alert OTHER: GENERAL: Patient is alert, awake and oriented x3. Thin and lean female laying in the bed HEART: Regular S1 and S2. No murmur, rub or gallop. LUNGS: Clear to auscultate bilaterally. ABDOMEN: Soft, nontender and nondistended. Positive bowel sounds. No guarding, rebound or tenderness. CENTRAL NERVOUS SYSTEM: Grossly nonfocal. EXTREMITIES: Lower extremities with out edema bilaterally. Resp: COMMON NORMALS: clear to auscultation bilaterally AUSCULTATION: clear to auscultation bilaterally Neuro: SENSORIUM/ORIENTATION: Yes alert Data 08/14/24 05:06 08/14/24 05:06 A&P Assessment and plan (1) Chest pain: Status post drug-eluting stent to ostial circumflex with good angiographic result no complication. Continue aspirin and statin Plavix beta-jass. (2) CHF (congestive heart failure), NYHA class IV: It is well compensated continue current regimen (3) CKD (chronic kidney disease): Continue to monitor, will start patient on IV fluid check BMP in the morning (4) Atrial fibrillation: Continues to be sinus rhythm continue to monitor (5) Hypertension: Well-controlled continue medicine (6) Atherosclerosis of [place] arteries of extremities with intermittent claudication, right leg: Post PCI to ostial circumflex Attestations 2 Medical Necessity Statement*: Patient is post PCI require continuation hospitalization Coding Level of Care Code Acute Code for Chg Fwd Diagnoses Chest pain R07.9 CHF (congestive heart failure), NYHA class IV I50.9 CKD (chronic kidney disease) N18.9 Atrial fibrillation I48.91 Hypertension I10 Atherosclerosis of [place] arteries of extremities with intermittent claudication, right leg I70.211
[2024-08-14] MEDS: sodium chloride 0.9% 1,000 ML 100 ML IV (15:50)
--- NOTE | 2024-08-14 15:57 | ECG_ITS ---
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 Measurements Intervals [place] Rate: 85 P: 83 [place]: 167 QRS: 100 QRSD: 101 T: 224 QT: 399 QTc: 476 Interpretive Statements SINUS RHYTHM POSSIBLE RIGHT VENTRICULAR HYPERTROPHY [SOME/ALL OF: PROMINENT R IN V1, LATE TRANSITION, RAD, CHRISTOS, SSS] ST DEVIATION AND MODERATE T-WAVE ABNORMALITY, CONSIDER LATERAL ISCHEMIA [-0.1+ mV T-WAVE IN I/aVL/V5/V6] ST DEVIATION AND MODERATE T-WAVE ABNORMALITY, CONSIDER INFERIOR ISCHEMIA [-0.1+ mV T-WAVE IN II/aVF] Compared to ECG 08/13/2024 21:37:47 Incomplete right bundle-branch block no longer present T-wave abnormality still present Possible ischemia still present Electronically Signed On 08-15-2024 20:57:27 CDT by Emmanuel Holley M.D. [id number]
[2024-08-14] MEDS: morphine 4 mg/mL SDV 1 mL 2 MG IVP (16:27)
--- NOTE | 2024-08-14 16:35 | PC.NURSE ---
return from cardiac lab[facility] at 1550 via bed.report received.pt is drowsy..but awake and oriented x 3.sr on monitor.pt has been c/o right arm chest pain,as reported by [employer] [employer] staff.she had reported pain as 5/10...but upon arrival to room..now reports chest pain of 10/10.ekg obtained.dr malone stated no changes noted .macedo catheter inserted as ordered for acute urinary retention..mso4 2 mg iv push given as ordered.left groin arterial sheath intact to pressurized system.drsg is dry and intact.no hematoma noted.right leg is warm to touch and with brisk capillary refill.palpable lle dp pulse noted.pt instructed in activity restrictions s/p femoral artery procedure...and instructed to notify staff for any bleeding,sob,numbness...or for any concerns at all.pt verb understanding of instructions.will continue to observe closely.
--- NOTE | 2024-08-14 18:09 | PC.NURSE ---
dr malone has called to check on pt.right arm pain had decreased to 5/10...but now up to 8/10.received order to start nitro drip.
[2024-08-14 18:40] LABS: Partial Thromboplastin Time > 250.0 SECONDS (23.9-36.7)
[2024-08-14] MEDS: LORazepam 0.5 mg Tablet PO (18:52)
[2024-08-14 22:36] LABS: Partial Thromboplastin Time 26.3 SECONDS (23.9-36.7)
[2024-08-15] VITALS (40 sets, daily range): BP systolic 83–134; BP diastolic 42–69; PULSE 73–106; RESP 16–32; TEMP 36.6–36.9; O2SAT 95–100; BMI 19.8
[2024-08-15] MEDS: morphine 4 mg/mL SDV 1 mL 2 MG IVP (00:45)
[2024-08-15 04:43] LABS: Basophils % 0.2 %; Eosinophils % 0.4 %; Lymphocytes # 1.8 10^3/uL (0.8-4.8); Lymphocytes % 18.3 %; Mean Corpuscular HGB Conc 32.1 g/dL (30-55); Mean Corpuscular Hemoglobin 28.7 pg (27-33); Mean Corpuscular Volume 89.2 fl (85-98); Mean Platelet Volume 9.5 fL (7.4-10.4); Monocytes # 0.9 10^3/uL (0.2-0.9); Neutrophils # 6.85 10^3/uL (1.8-7.7); Neutrophils % 71.8 %; Nucleated Red Blood Cells % 0 %; Platelet Count 223 10^3/cmm (157-399); Red Blood Count 3.14 10^6/uL (3.85-5.65); Red Cell Distribution Width 14.4 % (12.1-15.1); White Blood Count 9.55 10^3/uL (3.29-11.43)
[2024-08-15 05:03] LABS: Anion Gap 12.6 (5-19); Blood Urea Nitrogen 7 mg/dL (6-20); Calcium 8.7 mg/dL (8.5-10.5); Carbon Dioxide 25 mmol/L (22-29); Chloride 104 mmol/L (98-107); Creatinine Clr Calc Pharmacy 72.9156; Glomerular Filtration Rate 104.2 mL/min (90-130); Glucose 108 mg/dL (65-115); Magnesium 1.7 mg/dL (1.7-2.3); Osmolality Calculated 285 mOsm/kg (285-295); Potassium 3.6 mmol/L (3.5-5.1); Sodium 138 mmol/L (136-145)
--- NOTE | 2024-08-15 05:11 | PC.NURSE ---
Patient ptt 26.3 @ 2300. Dr Werner notified. Sheath will remain in until 10/5 AM.
[2024-08-15] MEDS: atorvastatin 40 mg Tablet 80 MG PO (09:04)
[2024-08-15] MEDS: pantoprazole DR 40 mg Tablet PO (09:04)
[2024-08-15] MEDS: losartan 50 mg Tablet PO (09:04)
[2024-08-15] MEDS: clopidogrel 75 mg Tablet PO (09:06)
[2024-08-15] MEDS: aspirin 81 mg Chew Tablet PO (09:06)
[2024-08-15] MEDS: fentaNYL 50 mcg/mL INJ 2mL IVP (09:08)
--- NOTE | 2024-08-15 09:59 | P.PN_ITS ---
Subjective 2 Subjective: No overnight event no more chest pain or arm pain status post PCI to ostial circumflex. Left common femoral artery sheath was pulled out and Mynx closure device was deployed. Currently patient is having bedrest Medications: Reviewed: Yes Vitals/I&O/Wt Last Vital Signs Temp 98.5 F 08/15/24 08:00 Pulse 106 H 08/15/24 09:02 Resp 18 08/15/24 09:08 BP 109/62 08/15/24 09:04 Pulse Ox 98 08/15/24 09:08 O2 Del Method Nasal Cannula 08/15/24 09:02 O2 Flow Rate 2 08/15/24 09:02 08/14/24 08/15/24 08/15/24 22:59 06:59 14:59 Intake Total 371.50 / 504.50 8.85 / 513.35 320 / 320 Output Total 850 / 850 550 / 1400 Balance -478.50 / -345.50 -541.15 / -886.65 320 / 320 Weight last 48 hrs Weight 95 lb Weight 95 lb Weight 92 lb 4.8 oz Weight 88 lb 9.6 oz Weight 86 lb Physical Exam 2 Const: COMMON NORMALS: alert OTHER: GENERAL: Patient is alert, awake and oriented x3. HEART: Regular S1 and S2. No murmur, rub or gallop. LUNGS: Clear to auscultate bilaterally. ABDOMEN: Soft, nontender and nondistended. Positive bowel sounds. No guarding, rebound or tenderness. CENTRAL NERVOUS SYSTEM: Grossly nonfocal. EXTREMITIES: Lower extremities with out edema bilaterally. Resp: COMMON NORMALS: clear to auscultation bilaterally AUSCULTATION: clear to auscultation bilaterally Neuro: SENSORIUM/ORIENTATION: Yes alert Urinary Catheter Management: Rao: Cath Placed During This Visit: yes Reason for Continuing Indwelling Catheter: Other Urinary Catheter Date of Insertion: 08/14/24 Urinary Catheter Time of Insertion: 16:20 Data 08/15/24 04:21 08/15/24 04:21 A&P Assessment and plan (1) Chest pain: Status post drug-eluting stent to ostial circumflex, no overnight event continue current regimen, left common femoral artery sheath has been pulled out and Mynx was used as a closure device currently patient is on bedrest for 4 hours. Further plan will be devised most likely possible discharge tomorrow if everything goes fine continue aspirin statin beta-jass and clopidogrel (2) CHF (congestive heart failure), NYHA class IV: Well compensated continue current regimen (3) CKD (chronic kidney disease): Continue monitoring continue IV fluid (4) Atrial fibrillation: Patient is in sinus rhythm continue current regimen (5) Hypertension: Well-controlled continue medicine (6) Atherosclerosis of [place] arteries of extremities with intermittent claudication, right leg: Post PCI to ostial circumflex, doing fine from a cardiovascular perspective continue current regimen Attestations 2 Medical Necessity Statement*: Patient require continuation hospitalization for the post PCI care Coding Level of Care Code [facility] Diagnoses Chest pain R07.9 CHF (congestive heart failure), NYHA class IV I50.9 CKD (chronic kidney disease) N18.9 Atrial fibrillation I48.91 Hypertension I10 Atherosclerosis of [place] arteries of extremities with intermittent claudication, right leg I70.211
[2024-08-15] MEDS: HYDROcodone-acetaminophen 5-325 mg Tablet 1 TAB PO ×2 (11:17→16:06)
--- NOTE | 2024-08-15 12:05 | PM.PN ---
Subjective Subjective: Seen her at bedside this morning. Feels better as compared to last night and seems more calm. She was very anxious yesterday post cardiac cath and complained of right arm pain. Received IV 2 mg of morphine which relieved the pain partially hence was given p.o. lorazepam 0.5 mg x 1 dose. Heparin drip discontinued and sheath removed by cardiology this morning. Medications: Reviewed: Yes Vitals/I&O/Wt Last Vital Signs Temp 98.5 F 08/15/24 08:00 Pulse 106 H 08/15/24 09:02 Resp 18 08/15/24 09:08 BP 109/62 08/15/24 09:04 Pulse Ox 98 08/15/24 09:08 O2 Del Method Nasal Cannula 08/15/24 09:02 O2 Flow Rate 2 08/15/24 09:02 08/14/24 08/15/24 08/15/24 22:59 06:59 14:59 Intake Total 371.50 / 504.50 8.85 / 513.35 320 / 320 Output Total 850 / 850 550 / 1400 Balance -478.50 / -345.50 -541.15 / -886.65 320 / 320 Weight last 48 hrs Weight 43.091 kg Weight 43.091 kg Weight 41.867 kg Weight 40.188 kg Weight 39.009 kg Physical Exam Narrative: She is alert awake oriented x 3, anxious, not in acute distress Chest clear to auscultation bilaterally Cardiovascular normal heart sounds, pansystolic murmur present Abdomen soft, nontender nondistended normal bowel sounds Extremities no edema noted bilateral lower extremities Urinary Catheter Management: Rao: Cath Placed During This Visit: yes Reason for Continuing Indwelling Catheter: Other Urinary Catheter Date of Insertion: 08/14/24 Urinary Catheter Time of Insertion: 16:20 Data 08/15/24 04:21 08/15/24 04:21 A&P Assessment and plan (1) Chest pain: (2) CHF (congestive heart failure), NYHA class IV: (3) CKD (chronic kidney disease): (4) 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 #Chest pain-with extensive cardiac history EKG shows worsening ST depressions Cardiology consulted in ER Patient will be n.p.o. past midnight for possible coronary angiogram in a.m. Continue IV heparin drip and nitroglycerin drip as per cardiology recommendations Follow-up 2 hours and 6-hour troponins. Continuous cardiac telemetry monitoring Continue RECEIVING CLERK aspirin, statin, Plavix. ECHO 07/04 1-Normal left ventricular size, systolic function with no regional wall motion abnormalities. Estimated ejection fraction 50 to 55%. Moderate left ventricle hypertrophy. Normal diastolic filling pattern. 2-Moderately increased left atrial size. 3-Thickened mitral valve. Mild to moderate mitral valve regurgitation. 4-Right atrial pressure is around 10 mm of mercury. # Hypertension-will hold RECEIVING CLERK amlodipine and labetalol for now Continue nitroglycerin drip. # Anxiety-will hold RECEIVING CLERK sertraline and trazodone P.o. lorazepam 0.5 mg 3 times daily as needed DVT prophylaxis, already on heparin drip GI prophylaxis with p.o. Protonix daily CODE STATUS discussed with patient and , she is full code for now 08/14-cardiology consult appreciated. She is n.p.o. past midnight for coronary angiogram this morning. Will follow-up cardiology for further recommendations. Continue to monitor. Nitroglycerin drip discontinued continue heparin drip for now. 08/15--cardiology consult and recommendations appreciated. She is Status post drug-eluting stent to ostial circumflex, , left common femoral artery sheath has been pulled out and Mynx was used as a closure device currently patient is on bedrest for 4 hours. Labs reviewed and are acceptable, hemoglobin stable at 9.0. Anticipating discharge in a.m. 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
--- NOTE | 2024-08-15 12:05 | PC.NURSE ---
dr malone and staciern from cardiac propagator laborer,applied minx device as left femoral arterial sheath was removed this morning at 0930.pt tolerated procedure well.left leg remains warm to touch and with brisk capillary refill. palpable dp pulse noted.no hematoma noted.site dressed with gauze and secured with biocclusive drsg.pt instructed in activity restrictions s/p femoral artery sheath and instructed to notify staff for any bleeding,pain,numbness,sob or for any concerns at all.pt verb understanding of instructions
[2024-08-16] VITALS (18 sets, daily range): BP systolic 82–135; BP diastolic 43–83; PULSE 75–128; RESP 12–25; TEMP 36.6–37.1; O2SAT 95–100
--- NOTE | 2024-08-16 04:14 | PC.NURSE ---
The patient had just got back in bed from going to and was hooked back up on telemetry and was found to be tachycardic in the 120s. The nurse went in to see the patient and she stated she was feeling SOB. Vitals were obtained BP 135/83, HR 121, o2 SAT 97%. Nurse talking with patient and HR stated to drop slowly back into normal limits, with HR in 80s when patient at rest. Left groin site dressing is dry and intact with no hematoma present.
[2024-08-16 04:35] LABS: Basophils # 0.1 10^3/uL (0.0-0.1); Basophils % 0.6 %; Eosinophils # 0.1 10^3/uL (0.0-0.8); Hematocrit 27.5 % (36-47); Lymphocytes # 1.5 10^3/uL (0.8-4.8); Lymphocytes % 16.5 %; Mean Corpuscular HGB Conc 31.3 g/dL (30-55); Mean Corpuscular Hemoglobin 28.3 pg (27-33); Mean Corpuscular Volume 90.5 fl (85-98); Mean Platelet Volume 9.9 fL (7.4-10.4); Monocytes # 0.7 10^3/uL (0.2-0.9); Monocytes % 7.8 %; Neutrophils # 6.67 10^3/uL (1.8-7.7); Neutrophils % 73.8 %; Nucleated Red Blood Cells % 0 %; Platelet Count 212 10^3/cmm (157-399); Red Blood Count 3.04 10^6/uL (3.85-5.65); Red Cell Distribution Width 14.2 % (12.1-15.1); White Blood Count 9.03 10^3/uL (3.29-11.43)
[2024-08-16 05:06] LABS: Blood Urea Nitrogen 7 mg/dL (6-20); Calcium 8.6 mg/dL (8.5-10.5); Carbon Dioxide 28 mmol/L (22-29); Chloride 103 mmol/L (98-107); Creatinine Clr Calc Pharmacy 87.4987; Glomerular Filtration Rate 128.6 mL/min (90-130); Glucose 110 mg/dL (65-115); Magnesium 1.6 mg/dL (1.7-2.3); Osmolality Calculated 285 mOsm/kg (285-295); Sodium 138 mmol/L (136-145)
[2024-08-16] MEDS: pantoprazole DR 40 mg Tablet PO (07:36)
[2024-08-16] MEDS: losartan 50 mg Tablet PO (07:36)
[2024-08-16] MEDS: clopidogrel 75 mg Tablet PO (07:37)
[2024-08-16] MEDS: aspirin 81 mg Chew Tablet PO (07:37)
[2024-08-16] MEDS: atorvastatin 40 mg Tablet 80 MG PO (07:37)
[2024-08-16] MEDS: magnesium oxide 400 mg tablet PO (08:10)
[2024-08-16] MEDS: ALPRAZolam 0.5 mg Tablet 0.25 MG PO (08:10)
--- NOTE | 2024-08-16 08:56 | ECG_ITS ---
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 Measurements Intervals [place] Rate: 125 P: 85 [place]: 143 QRS: 89 QRSD: 97 T: -81 QT: 264 QTc: 381 Interpretive Statements SINUS TACHYCARDIA ST DEVIATION AND MODERATE T-WAVE ABNORMALITY, CONSIDER INFERIOR ISCHEMIA [-0.1+ mV T-WAVE IN II/aVF] Compared to ECG 08/14/2024 16:02:54 Sinus rhythm no longer present T-wave abnormality still present Possible ischemia still present Electronically Signed On 08-16-2024 22:36:23 CDT by Emmanuel Holley M.D. [id number]
[2024-08-16] MEDS: metoprolol tartrate 1 mg/1 mL SDV 5 mL 5 MG IVP (09:08)
[2024-08-16] MEDS: morphine 4 mg/mL SDV 1 mL 2 MG IVP (09:15)
--- NOTE | 2024-08-16 09:17 | PC.NURSE ---
Patient reported chest pain ~0900. Noted patient to have increased heart rate to mid 150s sustained. Called and spoke with Dr Werner. EKG obtained. Received order to give Metoprolol 5mg slow IVP. Patient was also given morphine 2mg slow IVP. Patient reports pain relief at this time. HR at this time mid-90s to low-100s. Patient expressed understanding of medications given and thanks. Will continue to monitor.
--- NOTE | 2024-08-16 11:28 | P.PN_ITS ---
Subjective 2 Subjective: No acute overnight events noted. Seen at bedside this morning, reports feeling better but then she had an episode of sinus tachycardia at 150s and was complaining of chest pain and shortness of breath. She received IV morphine 2 mg and metoprolol 5 mg and heart rate improved to 88. EKG done which was similar to 08/14. No new ST-T changes Medications: Reviewed: Yes Vitals/I&O/Wt Last Vital Signs Temp 98.0 F 08/16/24 07:51 Pulse 88 08/16/24 08:10 Resp 24 H 08/16/24 09:15 BP 101/53 08/16/24 07:51 Pulse Ox 99 08/16/24 08:10 O2 Del Method Nasal Cannula 08/16/24 08:10 O2 Flow Rate 2 08/16/24 08:10 08/15/24 08/16/24 08/16/24 22:59 06:59 14:59 Intake Total 1615.658 / 2175.658 Balance 1615.658 / 2175.658 Weight last 48 hrs Weight 43.091 kg Weight 43.091 kg Weight 43.091 kg Physical Exam 2 Narrative: She is alert awake oriented x 3, anxious, not in acute distress Chest clear to auscultation bilaterally Cardiovascular normal heart sounds, pansystolic murmur present Abdomen soft, nontender nondistended normal bowel sounds Extremities no edema noted bilateral lower extremities Urinary Catheter Management: Rao: Cath Placed During This Visit: yes, but has since been removed by the nurse Reason for Continuing Indwelling Catheter: Acute Urinary Retention or Obstruction Urinary Catheter Date of Insertion: 08/14/24 Urinary Catheter Time of Insertion: 16:20 Date Urinary Catheter Removed: 08/15/24 Time Urinary Catheter Discontinued: 16:56 Data 08/16/24 03:54 08/16/24 03:54 A&P Assessment and plan (1) Chest pain: (2) CHF (congestive heart failure), NYHA class IV: (3) CKD (chronic kidney disease): (4) 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 #Chest pain-with extensive cardiac history EKG shows worsening ST depressions Cardiology consulted in ER Patient will be n.p.o. past midnight for possible coronary angiogram in a.m. Continue IV heparin drip and nitroglycerin drip as per cardiology recommendations Follow-up 2 hours and 6-hour troponins. 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 ECHO 07/04 1-Normal left ventricular size, systolic function with no regional wall motion abnormalities. Estimated ejection fraction 50 to 55%. Moderate left ventricle hypertrophy. Normal diastolic filling pattern. 2-Moderately increased left atrial size. 3-Thickened mitral valve. Mild to moderate mitral valve regurgitation. 4-Right atrial pressure is around 10 mm of mercury. 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 # Anxiety-will hold COMBAT SYSTEMS OPERATOR [employer] sertraline and trazodone P.o. lorazepam 0.5 mg 3 times daily as needed DVT prophylaxis, already on heparin drip GI prophylaxis with p.o. Protonix daily CODE STATUS discussed with patient and , she is full code for now 08/14-cardiology consult appreciated. She is n.p.o. past midnight for coronary angiogram this morning. Will follow-up cardiology for further recommendations. Continue to monitor. Nitroglycerin drip discontinued continue heparin drip for now. 08/15--cardiology consult and recommendations appreciated. She is Status post drug-eluting stent to ostial circumflex, , left common femoral artery sheath has been pulled out and Mynx was used as a closure device currently patient is on bedrest for 4 hours. Labs reviewed and are acceptable, hemoglobin stable at 9.0. Anticipating discharge in a.m. 08/16--plan was to discharge her home today but she had an episode of sinus tachycardia associated with shortness of breath and chest pain. Received IV morphine and metoprolol. Tachycardia resolved. Will monitor for 1 more day. P.o. Ativan twice daily as needed for anxiety. 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
--- NOTE | 2024-08-16 15:09 | P.PN_ITS ---
Subjective 2 Subjective: Patient had episode of SVT this morning treated with IV Lopressor Medications: Reviewed: Yes Vitals/I&O/Wt Last Vital Signs Temp 98.3 F 08/16/24 11:32 Pulse 79 08/16/24 13:23 Resp 15 08/16/24 13:23 BP 127/58 08/16/24 13:23 Pulse Ox 97 08/16/24 14:27 O2 Del Method Nasal Cannula 08/16/24 14:27 O2 Flow Rate 2 08/16/24 14:27 08/16/24 08/16/24 08/16/24 06:59 14:59 22:59 Intake Total 480 / 480 Balance 480 / 480 Weight last 48 hrs Weight 95 lb Weight 95 lb Weight 95 lb Physical Exam 2 Const: COMMON NORMALS: alert OTHER: GENERAL: Patient is alert, awake and oriented x3. HEART: Regular S1 and S2. No murmur, rub or gallop. LUNGS: Clear to auscultate bilaterally. ABDOMEN: Soft, nontender and nondistended. Positive bowel sounds. CENTRAL NERVOUS SYSTEM: Grossly nonfocal. EXTREMITIES: Lower extremities with out edema bilaterally. Resp: COMMON NORMALS: clear to auscultation bilaterally AUSCULTATION: clear to auscultation bilaterally Neuro: SENSORIUM/ORIENTATION: Yes alert Urinary Catheter Management: Rao: Cath Placed During This Visit: yes, but has since been removed by the nurse Reason for Continuing Indwelling Catheter: Acute Urinary Retention or Obstruction Urinary Catheter Date of Insertion: 08/14/24 Urinary Catheter Time of Insertion: 16:20 Date Urinary Catheter Removed: 08/15/24 Time Urinary Catheter Discontinued: 16:56 Data 08/16/24 03:54 08/16/24 03:54 A&P Assessment and plan (1) Chest pain: Patient had episode of chest pain but during SVT episode, it was aborted by using Lopressor IV, metoprolol will be started. Continue aspirin and statin clopidogrel (2) CHF (congestive heart failure), NYHA class IV: It is well compensated continue current regimen (3) CKD (chronic kidney disease): Continue to monitor appear to be stable (4) Atrial fibrillation: Patient is in sinus rhythm, episode of possible SVT, had metoprolol succinate (5) Hypertension: Well-controlled continue medicine (6) Atherosclerosis of [place] arteries of extremities with intermittent claudication, right leg: Post PCI to ostial circumflex, doing fine from a cardiovascular perspective continue current regimen Attestations 2 Medical Necessity Statement*: due to SVT tachycardia and chest pain we will continue to monitor patient 24 hours Coding Level of Care Code Acute Code for Chg Fwd Diagnoses Chest pain R07.9 CHF (congestive heart failure), NYHA class IV I50.9 CKD (chronic kidney disease) N18.9 Atrial fibrillation I48.91 Hypertension I10 Atherosclerosis of [place] arteries of extremities with intermittent claudication, right leg I70.211
[2024-08-16] MEDS: metoprolol succinate ER (24 HR) 25 mg Tablet PO (15:53)
[2024-08-16] MEDS: trazodone 50 mg Tablet PO (21:25)
[2024-08-17 04:00] VITALS: BP 101/41; PULSE 75; RESP 18; TEMP 36.6; O2SAT 95
[2024-08-17 05:28] VITALS: PULSE 79
[2024-08-17 07:01] LABS: Basophils % 0.5 %; Eosinophils # 0.1 10^3/uL (0.0-0.8); Eosinophils % 0.8 %; Hematocrit 26.6 % (36-47); Lymphocytes # 1.3 10^3/uL (0.8-4.8); Lymphocytes % 16.4 %; Mean Corpuscular HGB Conc 32.3 g/dL (30-55); Mean Corpuscular Hemoglobin 28.8 pg (27-33); Monocytes # 0.6 10^3/uL (0.2-0.9); Monocytes % 7.9 %; Neutrophils # 5.66 10^3/uL (1.8-7.7); Neutrophils % 74.1 %; Nucleated Red Blood Cells % 0 %; Platelet Count 219 10^3/cmm (157-399); Red Blood Count 2.99 10^6/uL (3.85-5.65); Red Cell Distribution Width 14.2 % (12.1-15.1); White Blood Count 7.63 10^3/uL (3.29-11.43)
[2024-08-17 07:17] LABS: Anion Gap 8.8 (5-19); Blood Urea Nitrogen 6 mg/dL (6-20); Calcium 8.7 mg/dL (8.5-10.5); Carbon Dioxide 30 mmol/L (22-29); Chloride 104 mmol/L (98-107); Creatinine Clr Calc Pharmacy 87.5921; Glomerular Filtration Rate 128.6 mL/min (90-130); Glucose 98 mg/dL (65-115); Osmolality Calculated 286 mOsm/kg (285-295); Potassium 3.8 mmol/L (3.5-5.1); Sodium 139 mmol/L (136-145)
[2024-08-17 07:47] VITALS: BP 121/46; PULSE 87; RESP 16; TEMP 37.2; O2SAT 98
[2024-08-17 07:52] VITALS: PULSE 87; RESP 16; O2SAT 97
[2024-08-17 07:54] VITALS: O2SAT 98
[2024-08-17] MEDS: clopidogrel 75 mg Tablet PO (08:32)
[2024-08-17] MEDS: aspirin 81 mg Chew Tablet PO (08:32)
[2024-08-17] MEDS: atorvastatin 40 mg Tablet 80 MG PO (08:32)
[2024-08-17] MEDS: sertraline 50 mg Tablet PO (08:33)
[2024-08-17] MEDS: losartan 50 mg Tablet PO (08:33)
[2024-08-17] MEDS: pantoprazole DR 40 mg Tablet PO (08:33)
[2024-08-17] MEDS: levothyroxine 75 mcg Tablet PO (08:33)
[2024-08-17] MEDS: FUROsemide 40 mg Tablet PO (08:33)
[2024-08-17] MEDS: metoprolol succinate ER (24 HR) 25 mg Tablet PO (08:33)
[2024-08-17 10:33] LABS: D Dimer 0.77 ug/mLFEU (0-0.59)
--- NOTE | 2024-08-17 10:54 | PM.DCS ---
Discharge Providers Date of Admission: 08/13/24 18:23 Date of Discharge: August 17, 2024 Attending Provider at Admission: Monique Mcclain MD Attending Provider at Discharge: Barry Acosta MD Primary Care Provider: ABA Mejia Diagnoses at Discharge Discharge Diagnosis (1) Chest pain: Status: Acute (2) CHF (congestive heart failure), NYHA class IV: Status: Acute (3) CKD (chronic kidney disease): Status: Chronic (4) Atrial fibrillation: Status: Acute (5) Hypertension: Status: Acute (6) Atherosclerosis of [place] arteries of extremities with intermittent claudication, right leg: Status: Acute Reason for Visit Reason for Visit: SOB, CP Hospital Course Hospital Course 54 year old female with history of coronary disease, [employer] RCA, PAD, history of occlusion of SMA, history of renal artery stenosis, PDA, HTN, HLD, asthma, presented with complaint of midsternal and right-sided chest pain. EKG showed ST depressions in lead I, 2, 3, aVF, V3-V6, worsening as compared to EKG on 06/19. Was on heparin drip initially , cardiology consulted. s/p cardiac cath with drug-eluting stent to ostial circumflex, , left common femoral artery sheath has been pulled out and Mynx was used as a closure device. Patient went into SVT which was controlled with IV Lopressor, her D-dimer was unremarkable for her age, she remained hemodynamically stable, she was put on 2 L of oxygen during hospitalization however on room air she was saturating well, on ambulation she is not experiencing any discomfort, she is endorsing some discomfort on taking deep breaths, it is reproducible, she should not take NSAIDs for now however can take Tylenol and opioids for possible costochondritis. She also has a 8 mm right upper lobe nodule nodule which needs to be followed up outpatient. Patient is on room air, hemodynamically stable, in sinus rhythm. Physical Exam Urinary Catheter Management: Rao: Cath Placed During This Visit: yes, but has since been removed by the nurse Reason for Continuing Indwelling Catheter: Acute Urinary Retention or Obstruction Urinary Catheter Date of Insertion: 08/14/24 Urinary Catheter Time of Insertion: 16:20 Date Urinary Catheter Removed: 08/15/24 Time Urinary Catheter Discontinued: 16:56 Discharge Data Studies Completed and Pending Completed Studies During Hospitalization Category Date Time Status MECHANICAL FITTER request for service Routine Exams 08/14/24 13:42 Completed CXRP [XR chest 1V portable [id number]] Stat Exams 08/13/24 16:29 Completed Radiology Impressions Chest X-Ray 08/13/24 16:29 IMPRESSION: 1. No acute cardiopulmonary abnormality. 2. 8 mm nodular opacity in the upper right lung. Correlation with CT is recommended to exclude a suspicious nodule with clinically appropriate. Laboratory Results WBC 7.63 10^3/uL (3.29-11.43) 08/17/24 06:19 RBC 2.99 10^6/uL (3.85-5.65) L 08/17/24 06:19 Hgb 8.60 g/dL (11.27-16.99) L 08/17/24 06:19 Hct 26.6 % (36-47) L 08/17/24 06:19 MCV 89.0 fl (85-98) 08/17/24 06:19 MCH 28.8 pg (27-33) 08/17/24 06:19 MCHC 32.3 g/dL (30-55) 08/17/24 06:19 RDW 14.2 % (12.1-15.1) 08/17/24 06:19 Plt Count 219 10^3/cmm (157-399) 08/17/24 06:19 MPV 10.0 fL (7.4-10.4) 08/17/24 06:19 Neut % (Auto) 74.1 % 08/17/24 06:19 Lymph % (Auto) 16.4 % 08/17/24 06:19 [place] % (Auto) 7.9 % 08/17/24 06:19 Eos % (Auto) 0.8 % 08/17/24 06:19 Baso % (Auto) 0.5 % 08/17/24 06:19 Neut # (Auto) 5.66 10^3/uL (1.8-7.7) 08/17/24 06:19 Lymph # (Auto) 1.3 10^3/uL (0.8-4.8) 08/17/24 06:19 [place] # (Auto) 0.6 10^3/uL (0.2-0.9) 08/17/24 06:19 Eos # (Auto) 0.1 10^3/uL (0.0-0.8) 08/17/24 06:19 Baso # (Auto) 0.0 10^3/uL (0.0-0.1) 08/17/24 06:19 Nucleated RBC % (auto) 0 % 08/17/24 06:19 Nucleated RBCs # 0.0 /100WBC 08/17/24 06:19 PT 12.50 SECONDS (12.1-14.9) 08/13/24 16:16 INR 0.91 (0.8-1.2) 08/13/24 16:16 APTT 26.3 SECONDS (23.9-36.7) D 08/14/24 22:18 D-Dimer 0.77 ug/mLFEU (0-0.59) H 08/17/24 10:02 Sodium 139 mmol/L (136-145) 08/17/24 06:19 Potassium 3.8 mmol/L (3.5-5.1) 08/17/24 06:19 Chloride 104 mmol/L (98-107) 08/17/24 06:19 Carbon Dioxide 30 mmol/L (22-29) H 08/17/24 06:19 Anion Gap 8.8 (5-19) 08/17/24 06:19 BUN 6 mg/dL (6-20) 08/17/24 06:19 Creatinine 0.5 mg/dL (0.5-0.9) 08/17/24 06:19 GFR Calculation 128.6 mL/min (90-130) 08/17/24 06:19 Glucose 98 mg/dL (65-115) 08/17/24 06:19 Calculated Osmolality 286 mOsm/kg (285-295) 08/17/24 06:19 Calcium 8.7 mg/dL (8.5-10.5) 08/17/24 06:19 Magnesium 1.6 mg/dL (1.7-2.3) L 08/16/24 03:54 Total Bilirubin 0.3 mg/dL (0.15-1.2) 08/13/24 16:16 AST 15 U/L (0-32) 08/13/24 16:16 ALT 12 U/L (0-33) 08/13/24 16:16 Alkaline Phosphatase 69 U/L (35-105) 08/13/24 16:16 Troponin T Baseline 23 ng/L (0-10) H 08/13/24 16:16 Troponin T 120 Minute 23.00 ng/L (0-10) H 08/13/24 18:20 Delta Troponin T 0 ABS# (0-10) 08/13/24 18:20 Troponin T Hi Sens 6Hr 29.37 ng/L (0-10) H 08/13/24 22:45 Troponin T Hi Sens 6Hr Delta 6.37 ng/L (0-12) 08/13/24 22:45 NT-Pro-B Natriuret Pep 6285 pg/mL (0-125) H 08/14/24 05:06 Total Protein 7.4 g/dL (6.6-8.7) 08/13/24 16:16 Albumin 4.7 g/dL (3.5-5.2) 08/13/24 16:16 Globulin 2.7 g/dL (1.3-4.6) 08/13/24 16:16 Lipase 43 U/L (13-60) 08/13/24 16:16 Vitals Last Vital Signs Temp 98.9 F 08/17/24 07:47 Pulse 87 08/17/24 07:52 Resp 16 08/17/24 07:52 BP 121/46 08/17/24 07:47 Pulse Ox 98 08/17/24 07:54 O2 Del Method Room Air 08/17/24 07:54 O2 Flow Rate 2 08/17/24 07:52 Discharge Plan Discharge Patient Disposition: Home Condition: Stable Prescriptions: New metoprolol succinate 25 mg Tablet Extended Release 24 Hr 25 mg PO DAILY Qty: 30 3RF Continued nitroglycerin 0.4 mg tablet, sublingual 0.4 mg SUBLINGUAL Q5M PRN (Reason: chest pain) Qty: 25 0RF Rx Instructions: As directed up to 3 albuterol sulfate 90 mcg/actuation aerosol powdr breath activated 2 inh INHALATION Q4H PRN (Reason: shortness of breath or wheezing) Qty: 1 1RF methocarbamol 500 mg Tablet 500 mg PO Q12H trazodone 50 mg Tablet 50 mg PO BEDTIME famotidine 40 mg Tablet 40 mg PO DAILY sertraline 50 mg Tablet 50 mg PO DAILY furosemide 40 mg Tablet 40 mg PO DAILY levothyroxine 75 mcg Tablet 75 mcg PO DAILY losartan 25 mg Tablet 12.5 mg PO DAILY cholecalciferol (vitamin D3) [Vitamin D3] 125 mcg (5,000 unit) Tablet 125 mcg PO DIRECTED Rx Instructions: once a week atorvastatin 80 mg Tablet 80 mg PO DAILY Qty: 30 3RF clopidogrel 75 mg tablet 75 mg PO DAILY Qty: 30 4RF aspirin 81 mg tablet,chewable 81 mg PO DAILY Qty: 30 4RF Discontinued metoprolol tartrate 12.5 mg PO BID Discharge Orders: Discharge Order (Routine); Ordered 08/17/24 Ordered By: Barry Acosta Referrals: Jerica Silvestre NP [Nurse Practitioner] - 08/25/24 11:30 am Stefanie Mojica FNP [Nurse Practitioner] - 08/26/24 2:00 am Discharge Diet: Cardiac Discharge Activity: Increase activity as tolerated Patient Instructions: Coronary Angioplasty (DC), Chest Pain Stoplight, Opioid Safety, Post Angiogram Home Care Instructions Discharge Attestations Time Spent in Discharge Care*: greater than 30 min Quality Metrics Clinical Quality Measures [ No reported AMI, CVA or VTE this stay] Coding Level of Care Code Acute Code for Chg Fwd Diagnoses Chest pain R07.9 CHF (congestive heart failure), NYHA class IV I50.9 CKD (chronic kidney disease) N18.9 Atrial fibrillation I48.91 Hypertension I10 Atherosclerosis of [place] arteries of extremities with intermittent claudication, right leg I70.211
[2024-08-17 12:00] VITALS: BP 160/68; RESP 18; TEMP 36.9; O2SAT 94
--- NOTE | 2024-08-17 12:22 | P.PN_ITS ---
Subjective 2 Subjective: No more overnight event Medications: Reviewed: Yes Vitals/I&O/Wt Last Vital Signs Temp 98.4 F 08/17/24 12:00 Pulse 87 08/17/24 07:52 Resp 18 08/17/24 12:00 BP 160/68 08/17/24 12:00 Pulse Ox 94 08/17/24 12:00 O2 Del Method Room Air 08/17/24 12:00 O2 Flow Rate 2 08/17/24 07:52 08/16/24 08/17/24 08/17/24 22:59 06:59 14:59 Intake Total 240 / 720 360 / 360 Balance 240 / 720 360 / 360 Weight last 48 hrs Weight 95 lb 1.6 oz Weight 95 lb Physical Exam 2 Const: COMMON NORMALS: alert OTHER: GENERAL: Patient is alert, awake and oriented x3. HEART: Regular S1 and S2. No murmur, rub or gallop. LUNGS: Clear to auscultate bilaterally. ABDOMEN: Soft, nontender and nondistended. Positive bowel sounds. CENTRAL NERVOUS SYSTEM: Grossly nonfocal. EXTREMITIES: Lower extremities with out edema bilaterally. Resp: COMMON NORMALS: clear to auscultation bilaterally AUSCULTATION: clear to auscultation bilaterally Neuro: SENSORIUM/ORIENTATION: Yes alert Urinary Catheter Management: Rao: Cath Placed During This Visit: yes, but has since been removed by the nurse Reason for Continuing Indwelling Catheter: Acute Urinary Retention or Obstruction Urinary Catheter Date of Insertion: 08/14/24 Urinary Catheter Time of Insertion: 16:20 Date Urinary Catheter Removed: 08/15/24 Time Urinary Catheter Discontinued: 16:56 Data 08/17/24 06:19 08/17/24 06:19 A&P Assessment and plan (1) Chest pain: No more chest pain continue aspirin statin beta-jass and clopidogrel, patient is advised to continue taking for clopidogrel for at least 1 year (2) CHF (congestive heart failure), NYHA class IV: It is well compensated continue current regimen (3) CKD (chronic kidney disease): Continue to monitor appear to be stable (4) Atrial fibrillation: Patient is in sinus rhythm, episode of possible SVT, had metoprolol succinate (5) Hypertension: Well-controlled continue medicine (6) Atherosclerosis of [place] arteries of extremities with intermittent claudication, right leg: Post PCI to ostial circumflex, doing fine from a cardiovascular perspective continue current regimen Attestations 2 Medical Necessity Statement*: From cardiovascular perspective patient can be discharged home. Coding Level of Care Code Acute Code for g Fwd Diagnoses Chest pain R07.9 CHF (congestive heart failure), NYHA class IV I50.9 CKD (chronic kidney disease) N18.9 Atrial fibrillation I48.91 Hypertension I10 Atherosclerosis of [place] arteries of extremities with intermittent claudication, right leg I70.211
== END 2024-08-17 12:28 | disposition home or self-care (01) | DRG 322 ==
LOC: ER 17:48 → CSU 18:24
PROVIDERS: Internal Medicine Cardiovascular Disease; Admitting Provider Internal Medicine; Emergency Provider Emergency Medicine; PCP Nurse Practitioner; Visit Provider Internal Medicine
PROC: 027034Z Dilation of Coronary Artery, One Artery with Drug-eluting Intraluminal Device, Percutaneous Approach (ICD-10-PCS; principal; 2024-08-14 14:00)
PROC: 027034Z Dilation of Coronary Artery, One Artery with Drug-eluting Intraluminal Device, Percutaneous Approach (ICD-10-PCS; 2024-08-14 14:00)
DX: I25.119 Atherosclerotic heart disease of native coronary artery with unspecified angina pectoris (principal); I13.0 Hypertensive heart and chronic kidney disease with heart failure and stage 1 through stage 4 chronic kidney disease, or unspecified chronic kidney disease; Q25.0 Patent ductus arteriosus; I47.10 Supraventricular tachycardia, unspecified; J45.909 Unspecified asthma, uncomplicated; Z79.899 Other long term (current) drug therapy; Z79.82 Long term (current) use of aspirin; I25.2 Old myocardial infarction; E78.2 Mixed hyperlipidemia; I48.91 Unspecified atrial fibrillation; F41.9 Anxiety disorder, unspecified; F32.A Depression, unspecified; I50.9 Heart failure, unspecified; N18.9 Chronic kidney disease, unspecified; I70.211 Atherosclerosis of native arteries of extremities with intermittent claudication, right leg; R91.1 Solitary pulmonary nodule
CPT/HCPCS: 36415; 51702; 71045; 80048; 80053; 83690; 83735; 83880; 84484; 85025; 85347; 85378; 85610; 85730; 93005; 93454; 94664; 96365; 96366; 96374; 96375; 96376; 99152; 99153; 99285; C1725; C1760; C1769; C1874; C1887; C1894; C9600; G0269; J0282; J0360; J1644; J2250; J2270; J2371; J2405; J3010; J3490; J7030; Q9967

== ENCOUNTER → 2024-08-26 14:24 | Outpatient (BNVA) | payer MEDICAID, SELFPAY | PROVIDERS: PCP Nurse Practitioner; Visit Provider Nurse Practitioner Family | DX: I25.10 Atherosclerotic heart disease of native coronary artery without angina pectoris (principal) | CPT/HCPCS: 36415; 80048; 83880 ==

== ENCOUNTER 2025-01-29 10:27 | Emergency (ER) | payer MEDICAID, SELFPAY ==
[2025-01-29] VITALS (83 sets, daily range): BP systolic 0–184; BP diastolic 0–137; PULSE 0–186; RESP 18–34; TEMP 36.4; O2SAT 0–100; BMI 20.1
--- NOTE | 2025-01-29 10:42 | XR_ITS ---
WS: [id number] Portable AP upright chest, 01/29/2025 Clinical Data: dyspnea, b/l efffusions, pulm edema Comparison: Portable chest, 08/13/2024 Findings: Diffuse bilateral patchy opacities have developed. These opacities may represent diffuse pneumonia and/or pulmonary edema. No effusions are seen. There are no nodules or masses. The heart size has not changed. No pneumothorax is present. Monitor leads are on the chest wall. There is a dextroscoliosis of the thoracic spine. XR/XR chest 1V portable [id number] Impression: 1. Diffuse bilateral patchy pulmonary opacities which could represent severe pn eumonia and less likely pulmonary edema. 2. No change in heart size.
--- NOTE | 2025-01-29 10:42 | ECG_ITS ---
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 Measurements Intervals [place] Rate: 127 P: 87 MO: 148 QRS: 93 QRSD: 124 T: 216 QT: 335 QTc: 489 Interpretive Statements SINUS TACHYCARDIA BORDERLINE RIGHT AXIS DEVIATION [QRS AXIS > 90] POSSIBLE ANTERIOR MYOCARDIAL INFARCTION , OF INDETERMINATE AGE [30 ms Q WAVE IN V3/V4, OR R < 0.2 mV IN V4] INFERIOR MYOCARDIAL INFARCTION , OF INDETERMINATE AGE [40+ ms Q WAVE AND/OR ST/T ABNORMALITY IN II/aVF] MODERATE T-WAVE ABNORMALITY, CONSIDER LATERAL ISCHEMIA [-0.1+ mV T-WAVE IN I/aVL/V5/V6] Compared to ECG 08/16/2024 09:00:34 Myocardial infarct finding now present T-wave abnormality still present Possible ischemia still present Electronically Signed On 01-30-2025 07:41:51 CDT by Jose Manuel Brar M.D. [email or web address]
--- NOTE | 2025-01-29 10:42 | W.ED.SOB ---
HPI - SOB/Dyspnea General: Chief Complaint: Chest Pain Stated Complaint: chest pain - SOB Time Seen by Provider: 01/29/25 10:41 History of Present Illness: HPI Narrative: 54 year old female presents with EMS in respiratory distress. EMS reports patient complained of starting to have chest discomfort that was dull 7 out of 10 last night around 8 PM. Today has become more of a sharp chest pain when she breathes. She also has been experiencing shortness of breath. EMS reports that her room air saturation was 70% when they got there. Patient felt numb and cool in her left upper extremity which improved with oxygenation. Twelve-lead EKG showed some ST and T wave changes but no STEMI. 1 albuterol and 1 DuoNeb were given as well as 4 mg of Zofran and 324mg asa by EMS. Patient does have a history of stents. Blood glucose was 231. Blood pressure was 150 systolic. Heart rate was tachycardic. Patient is awake/alert but very short of breath and spo2 74% on 15 LPM nonrebreather shortly after arrival. I started her on bipap right away. Therefore, history is limited. She admits to nonbloody diarrhea, mild b/l low abd pain, cp, sob, cough with clear sputum. 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 Patient's med list that she has with her contains sertraline, metoprolol succinate, trazodone, atorvastatin, levothyroxine, losartan, furosemide, aspirin, gabapentin Related Data Home Medications ?Medication ?Instructions ?Recorded ?Confirmed sertraline 50 mg tablet 50 mg PO DAILY 06/21/24 01/29/25 trazodone 50 mg tablet 50 mg PO BEDTIME 06/21/24 01/29/25 cholecalciferol (vitamin D3) 125 125 mcg PO Q7D 08/13/24 01/29/25 mcg (5,000 unit) tablet (Vitamin D3) furosemide 40 mg tablet 40 mg PO DAILY 08/13/24 01/29/25 levothyroxine 75 mcg tablet 75 mcg PO DAILY 08/13/24 01/29/25 losartan 25 mg tablet 12.5 mg PO DAILY 08/13/24 01/29/25 gabapentin 100 mg capsule 100 mg PO BEDTIME 01/29/25 01/29/25 Previous Rx's ?Medication ?Instructions ?Recorded nitroglycerin 0.4 mg sublingual 0.4 mg sublingual Q5M PRN chest 12/17/19 tablet pain #25 tabs aspirin 81 mg chewable tablet 81 mg PO DAILY #30 tabs 08/17/24 atorvastatin 80 mg tablet 80 mg PO DAILY #30 tabs 08/17/24 clopidogrel 75 mg tablet 75 mg PO DAILY #30 tabs 08/17/24 metoprolol succinate 25 mg 25 mg PO DAILY #30 tabs 08/17/24 tablet,extended release 24 hr potassium chloride 8 mEq 8 meq PO DAILY #7 tabs 08/26/24 tablet,extended release (Klor-Con) Allergies Allergy/AdvReac Type Severity Reaction Status Date / Time No Known Allergies Allergy Verified 08/26/24 13:44 Review of Systems General: Reports: ROS unobtainable due to medical condition PFS ED PFSH: Medical History CHF (congestive heart failure), NYHA class IV Chest pain Acute ischemic left 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 Atrial fibrillation Peripheral arterial disease Coronary artery disease CKD (chronic kidney disease) Subclinical hypothyroidism Non-ST elevated myocardial infarction 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 Atherosclerosis of [place] arteries of extremities with intermittent claudication, right leg Arteriosclerosis of both carotid arteries Hypertension Aortic arch atherosclerosis Anxiety and depression Mixed hyperlipidemia Asthma Patent ductus arteriosus Heart disease Surgical History Hx of bilateral cataract extraction Family History Other CAD (coronary artery disease) Cancer Chronic kidney disease (CKD) Diabetes Family history of premature coronary artery disease Hypertension Lung disease Stroke Denies family history of Clotting disorder Dementia Hyperlipidemia Psychiatric illness Suicide Anesthesia complication Bleeding disorder Social History Smoking and tobacco/nicotine status: never used tobacco/nicotine Second hand smoke exposure: No Alcohol intake: former Substance/Drug Use: current Substance/Drug use frequency: few times a month Adopted: No Caregiver/support person: Yes Lives independently: Yes Household members: spouse Housing: House Marital status: Number of children: 0 Highest education level completed: High School Graduate service: No Current occupational status: unemployed Current occupational exposures/hazards: No Pets and animals: Yes Sexually active: Yes Do you think of yourself as: Straight/Heterosexual Current gender identity: Female Special ran needs: No Agree to transfusion: Yes Physical Exam Narrative: EXAM NARRATIVE: alert, ill appearing, respiratory distress, wheezes and rales present, no sig JVD at 70 degrees upright, no LE edema. Cap refill is slightly delayed in both upper extremities on the nails. I cannot feel either of her radial pulses. HR is elevated in 120's. No asymmetry of the size/color of the UEs or LEs when compared. Abd soft, NT, ND. Tolerating bipap well. Const: COMMON NORMALS: alert EXAM LIMITATIONS: no altered mental status HENMT: COMMON NORMALS: normocephalic, atraumatic and external ears normal HEAD & SCALP: normocephalic and atraumatic EXTERNAL EAR: Yes external ears normal MOUTH: no muffled voice Eye: COMMON NORMALS: conjunctivae normal and no scleral icterus CONJUNCTIVA: Yes conjunctivae normal Neck/C-Spine: COMMON NORMALS: no JVD GENERAL: Yes normal visual inspection and Yes trachea midline Cardio: COMMON NORMALS: no JVD and regular rhythm; negative for regular rate RATE: abnormal rate RHYTHM: regular rhythm GI: COMMON NORMALS: Soft to palpation and non-tender PALPATION: Yes Soft to palpation and No Guarding due to palpation present (GI) Extremity: NARRATIVE EXTREMITY EXAM: skinny/poor muscle bulk Neuro: COMMON NORMALS: moves all extremities, no focal motor deficits and no sensory deficits noted SENSORIUM/ORIENTATION: Yes alert SPEECH: speech normal Psych: COMMON NORMALS: mental status grossly normal, cooperative, normal affect and speech normal SPEECH: Yes normal speech Skin: COMMON NORMALS: no rashes or lesions noted, turgor normal and no jaundice GENERAL SKIN EXAM: no rashes or lesions noted and turgor normal Procedures Intubation Time out performed: No sedative: none Laryngoscope: Figueroa Assist Device Used: other (video) ET Tube Size: 8 ET Tube Uncuffed: No Tube Secured Depth (cm): 21 Tube Secured Location: teeth Tube Placement Confirmation: visualized tube passing through cords Patient Tolerated Procedure: other (cpr ongoing) Intubation Complications: none Course Vital Signs: Vital signs: Vital Signs Temperature 97.5 F L 01/29/25 10:42 Pulse Rate 0 L 01/29/25 17:53 Respiratory Rate 28 H 01/29/25 17:03 Blood Pressure 0/0 01/29/25 17:53 Pulse Oximetry 0 L 01/29/25 17:53 Oxygen Delivery Me thod Mechanical Ventil ation 01/29/25 16:00 Fraction of Inspir ed Oxygen 100 01/29/25 17:03 MDM - SOB/Dyspnea Medical Decision Making Critically ill 54 yo f with resp distress/hypoxia requiring immediate bipap and rapid assessment. Bedside US performed: She has B lines b/l and small b/l pleural effusions. HR 120s. I cannot feel her radial pulse on either side. Pt reports she has sig difference in bp in RUE and LUE for several months. Pt is a polyvasculopath. DDx: chf w/ decompensation, PE, pnuemonia, pulm htn, anemia, malignancy, pericardial effusion, sepsis, renal failure, elevated co2, and long ddx. EGK, EP interp: EKG was obtained at 10:35 AM. This is a sinus tachycardia, there are abnormal P waves, QRS duration is prolonged, there is an S wave in lead I, there are T wave inversions in lead III. The EKG quality variable. There is significant ST segment elevation in aVR with ST depression in V5 and V6. V3 and V4 is difficult to interpret. J-point elevation noted in V1 as well. Abnormal EKG but no STEMI criteria. ABG EP interp: suspected primary respiratory acidosis with secondary metabolic acidosis. Chemistries are pending. CXR: 1 view, EP interp: significant b/l infiltrates Troponins elevated. Delta troponin increasing. Discussed with cardiology team. [address] Werner who recommends anticoagulation, dapt, treat underlying, echo and he will see patient. Repeat EKG showed ST depressions in 1, 2, 3, aVF, some elevation in aVR and aVL, depressions in V4 V5 V6. Patient has received heparin bolus and is on heparin drip. Decision was being made whether or not to give her 30 cc/kg of fluid bolus. The patient does have severe sepsis but also appears to be in acute decompensated congestive heart failure with both hypoxemia and hypercapnia already present. Ultimately, we decided to continue with fluid resuscitation given his significantly elevated lactic acid. Update Shortly after the patient returned from the CT scanner I went to check on her. She had taken off her BiPAP mask. Nursing reports she took it off about a minute prior to me getting in there. She reports that she is having trouble breathing. She reports she needs to defecate. The patient looked anxious and ill. I asked her to try and keep the mask on and I reapplied it. She had taken it back off. I asked her about her goals of care and a family friend called her Vernon. Vernon says that she had in the past talk about being a DNR. However, he was not so sure about this. Right at that time the patient lost consciousness and had an arrest. This was a PEA arrest. 25 minutes of CPR were performed and the patient was intubated before we got return of spontaneous circulation. Epinephrine drip was ordered. CT angiogram showed multifocal pneumonia with marked interval progression since June 19, 2024. Moderate bilateral pleural effusions right greater than left. Moderate to extensive calcifications of multiple arteries and no pulmonary embolism. I consulted with Dr. Brar who did not think it was a primary cardiac arrest. PEA is unlikely to be of cardiac origin. Patient has multifocal pneumonia and sepsis with known coronary artery disease. Several minutes later, patient had cardiac arrest again. Again it was PEA arrest. At about 10 minutes we got ROSC. The patient appeared to have an epinephrine dependent rhythm. She developed ventricular tachycardia. I performed synchronized cardioversion. She went back into what appeared to be an organized rhythm. Procedure: Synchronized cardioversion. Performed due to ventricular tachycardia with impaired perfusion. 150 jolts x 1. Successful cardioversion. Performed by myself Dr. Lakhani and Dr. Brar came to bedside. The patient was manage of aggressively as I consulted the family. After multiple phone calls I was able to get a hold of the patient's sister who then got a hold of the and mother. They came to the hospital. Dr. Lakhani had a family meeting with them. They ultimately decided to pursue comfort care. The patient's vasopressors and medications were stopped. She was extubated. 1753: Patient pronounced . Family at bedside. I confirmed no pupil reactivity, no gag, no pulse, no respirations, no heartbeat. Medical Records I reviewed the patient's medical records. Lab Data I reviewed the patient's lab results. 01/29/25 11:00 01/29/25 11:00 Labs/Radiology: Radiology Impressions Chest X-Ray 01/29/25 10:42 Impression: 1. Diffuse bilateral patchy pulmonary opacities which could represent severe pneumonia and less likely pulmonary edema. 2. No change in heart size. Chest CTA 01/29/25 13:15 IMPRESSION: 1. Multifocal pneumonia with marked interval progression since June 19, 2024. 2. Moderate bilateral pleural effusions, right greater than left, new since the prior study. 3. Moderate to extensive atherosclerotic calcification involving the thoracic aorta, proximal great vessels, coronary arteries, and visualized upper abdominal arteries. These findings are advanced for the patient's age. 4. No pulmonary embolism detected. Laboratory Results WBC 18.92 10^3/uL (3.29-11.43) H 01/29/25 11:00 RBC 4.44 10^6/uL (3.85-5.65) 01/29/25 11:00 Hgb 11.30 g/dL (11.27-16.99) 01/29/25 11:00 Hct 37.7 % (36-47) 01/29/25 11:00 MCV 84.9 fl (85-98) L 01/29/25 11:00 MCH 25.5 pg (27-33) L 01/29/25 11:00 MCHC 30.0 g/dL (30-55) 01/29/25 11:00 RDW 16.4 % (12.1-15.1) H 01/29/25 11:00 Plt Count 360 10^3/cmm (157-399) 01/29/25 11:00 MPV 9.6 fL (7.4-10.4) 01/29/25 11:00 Neut % (Auto) 92.1 % 01/29/25 11:00 Lymph % (Auto) 4.0 % 01/29/25 11:00 Dade % (Auto) 3.0 % 01/29/25 11:00 Eos % (Auto) 0.1 % 01/29/25 11:00 Baso % (Auto) 0.3 % 01/29/25 11:00 Neut # (Auto) 17.45 10^3/uL (1.8-7.7) H 01/29/25 11:00 Lymph # (Auto) 0.8 10^3/uL (0.8-4.8) 01/29/25 11:00 [place]ade # (Auto) 0.6 10^3/uL (0.2-0.9) 01/29/25 11:00 Eos # (Auto) 0.0 10^3/uL (0.0-0.8) 01/29/25 11:00 Baso # (Auto) 0.1 10^3/uL (0.0-0.1) 01/29/25 11:00 Nucleated RBC % (auto) 0 % 01/29/25 11:00 Nucleated RBCs # 0.0 /100WBC 01/29/25 11:00 PT 12.60 SECONDS (12.1-14.9) 01/29/25 11:00 INR 0.89 (0.8-1.2) 01/29/25 11:00 APTT 24.6 SECONDS (23.9-36.7) 01/29/25 11:00 D-Dimer 1.89 ug/mLFEU (0-0.59) H 01/29/25 11:00 Specimen Type Arterial 01/29/25 16:36 Sample Site Brachial, right 01/29/25 16:36 ABG pH 7.08 (7.35-7.45) L* 01/29/25 16:36 ABG pCO2 54.6 mmHg (35-45) H 01/29/25 16:36 ABG pO2 45.4 mmHg (80.0-100.0) L 01/29/25 16:36 ABG PO2/FiO2 Ratio 71 01/29/25 13:29 ABG HCO3 16.1 mmol/L (22-26) L 01/29/25 16:36 ABG O2 Saturation 58.7 01/29/25 16:36 ABG Base Excess -13.5 mmol/L (-2.0-2.0) L 01/29/25 16:36 Hunter Test Pos 01/29/25 16:36 A-a O2 Gradient 4.9 mmHg (5-10) L 01/29/25 16:36 Hematocrit 28.8 % (37-47) L 01/29/25 16:36 Hgb O2 Saturation 57.8 % (95-100) L 01/29/25 16:36 Carboxyhemoglobin 0.8 %THgb (0.4-20.1) 01/29/25 16:36 Methemoglobin 0.8 % (0.4-1.5) 01/29/25 16:36 Total Hemoglobin 9.4 g/dL (12-16) L 01/29/25 16:36 Sodium 149.0 mmol/L (131-143) H 01/29/25 16:36 Potassium 3.3 mmol/L (3.5-5.0) L 01/29/25 16:36 Glucose 165.0 mg/dL (70-115) H 01/29/25 16:36 Ionized Calcium 1.0 mmol/L (1.1-1.4) L 01/29/25 16:36 O2 Delivery Device Vent 01/29/25 16:36 O2 Liters/Min 15.0 % 01/29/25 10:36 FiO2 75.0 % 01/29/25 13:29 Tidal Volume 0.40 01/29/25 16:36 PEEP 6.0 cmH20 01/29/25 16:36 Quarter Section Ironer ID Cak 01/29/25 16:36 Sodium 143 mmol/L (136-145) 01/29/25 11:00 Potassium 3.5 mmol/L (3.5-5.1) 01/29/25 11:00 Chloride 96 mmol/L (98-107) L 01/29/25 11:00 Carbon Dioxide 26 mmol/L (22-29) 01/29/25 11:00 Anion Gap 24.5 (5-19) H 01/29/25 11:00 BUN 15 mg/dL (6-20) 01/29/25 11:00 Creatinine 0.9 mg/dL (0.5-0.9) 01/29/25 11:00 GFR Calculation 65.2 mL/min (90-130) L 01/29/25 11:00 Glucose 218 mg/dL (65-115) H 01/29/25 11:00 Calculated Osmolality 303 mOsm/kg (285-295) H 01/29/25 11:00 Lactic Acid 7.7 mmol/L (0.5-2.2) H* 01/29/25 11:30 Lactic Acid (Sepsis) 4.0 mmol/L (0.5-2.2) H 01/29/25 13:24 Calcium 9.2 mg/dL (8.5-10.5) 01/29/25 11:00 Total Bilirubin 0.4 mg/dL (0.15-1.2) 01/29/25 11:00 AST 23 U/L (0-32) 01/29/25 11:00 ALT 12 U/L (0-33) 01/29/25 11:00 Alkaline Phosphatase 109 U/L (35-105) H 01/29/25 11:00 Troponin T Baseline 194 ng/L (0-10) H* 01/29/25 11:00 Troponin T 120 Minute 464.2 ng/L (0-10) H 01/29/25 13:24 Delta Troponin T 270.2 ABS# (0-10) H* 01/29/25 13:24 NT-Pro-B Natriuret Pep 45433 pg/mL (0-125) H 01/29/25 11:00 Total Protein 8.3 g/dL (6.6-8.7) 01/29/25 11:00 Albumin 4.7 g/dL (3.5-5.2) 01/29/25 11:00 Globulin 3.6 g/dL (1.3-4.6) 01/29/25 11:00 Procalcitonin 0.06 ng/mL (0-0.5) 01/29/25 11:00 TSH 0.51 uIU/mL (0.27-4.20) 01/29/25 11:00 All radiology interpretation(s) finalized by discharge Critical Care Time Critical Care Time: Critical Care Time: Yes Total Critical Care Time: 120 Attestation: This case had a high probability of a clinically significant, sudden, or life threatening deterioration of this patient's condition which required my full and direct attention, intervention and personal management. Respiratory failure and arrest, cardia arrest, v tach, PEA, metabolic/respiratory acidosis. Discharge Plan Discharge Patient Disposition: Home Clinical Impression: Multifocal pneumonia, Cardiopulmonary arrest, Non-ST elevated myocardial infarction, Respiratory failure, Cardiac arrest with pulseless electrical activity, Severe sepsis Condition: Prescriptions: No Action nitroglycerin 0.4 mg tablet, sublingual 0.4 mg SUBLINGUAL Q5M PRN (Reason: chest pain) Qty: 25 0RF Rx Instructions: As directed up to 3 potassium chloride [Klor-Con 8] 8 mEq tablet extended release 8 meq PO DAILY Qty: 7 1RF Rx Instructions: while taking Lasix gabapentin 100 mg Capsule 100 mg PO BEDTIME trazodone 50 mg Tablet 50 mg PO BEDTIME sertraline 50 mg Tablet 50 mg PO DAILY furosemide 40 mg Tablet 40 mg PO DAILY levothyroxine 75 mcg Tablet 75 mcg PO DAILY losartan 25 mg Tablet 12.5 mg PO DAILY cholecalciferol (vitamin D3) [Vitamin D3] 125 mcg (5,000 unit) Tablet 125 mcg PO Q7D Rx Instructions: once a week metoprolol succinate 25 mg Tablet Extended Release 24 Hr 25 mg PO DAILY Qty: 30 3RF atorvastatin 80 mg Tablet 80 mg PO DAILY Qty: 30 3RF clopidogrel 75 mg tablet 75 mg PO DAILY Qty: 30 4RF aspirin 81 mg tablet,chewable 81 mg PO DAILY Qty: 30 4RF Discharge Orders: Discharge ED (Routine); Ordered 01/29/25 Ordered By: Stephen Sequeira Referrals: Khushi Dominguez FNP [Primary Care Provider] - Patient Instructions: Opioid Safety, Pain Management Print Language: Slovak Coding Level of Care Code ED [employer]ator for Tasha Dockery
[2025-01-29 10:47] LABS: ABG PCO2 58.4 mmHg (35-45); ABG PH Result 7.27 (7.35-7.45); Arterial Blood Gas Hematocrit 35.3 % (37-47); Base Excess ABG -0.8 mmol/L (-2.0-2.0); Blood Gas Allen Test Pos; Blood Gas Operator Identificat WALCI; Blood Gas Sample Site Brachial, right; Blood Gas Sample Type Arterial; HCO3 ABG 26.9 mmol/L (22-26); Oxygen Device NRB; PO2 ABG 79.3 mmHg (80.0-100.0)
--- NOTE | 2025-01-29 10:58 | PC.PHAR ---
Pt currently using [facility] [phone]. Verified current med list with [facility]. Last fill 08/17/24 90ds on the majority of them. NitroStat 0.4 last fill was 12/17/2019.
[2025-01-29 11:24] LABS: Basophils # 0.1 10^3/uL (0.0-0.1); Basophils % 0.3 %; Eosinophils % 0.1 %; Hematocrit 37.7 % (36-47); Lymphocytes # 0.8 10^3/uL (0.8-4.8); Mean Corpuscular Hemoglobin 25.5 pg (27-33); Mean Corpuscular Volume 84.9 fl (85-98); Mean Platelet Volume 9.6 fL (7.4-10.4); Monocytes # 0.6 10^3/uL (0.2-0.9); Neutrophils # 17.45 10^3/uL (1.8-7.7); Neutrophils % 92.1 %; Nucleated Red Blood Cells % 0 %; Platelet Count 360 10^3/cmm (157-399); Red Blood Count 4.44 10^6/uL (3.85-5.65); Red Cell Distribution Width 16.4 % (12.1-15.1); White Blood Count 18.92 10^3/uL (3.29-11.43)
[2025-01-29 11:50] LABS: INR 0.89 (0.8-1.2)
[2025-01-29 11:51] LABS: Partial Thromboplastin Time 24.6 SECONDS (23.9-36.7)
[2025-01-29 11:52] LABS: Alanine Aminotransferase 12 U/L (0-33); Albumin Level 4.7 g/dL (3.5-5.2); Alkaline Phosphatase 109 U/L (35-105); Anion Gap 24.5 (5-19); Aspartate Amino Transferase 23 U/L (0-32); Blood Urea Nitrogen 15 mg/dL (6-20); Calcium 9.2 mg/dL (8.5-10.5); Carbon Dioxide 26 mmol/L (22-29); Chloride 96 mmol/L (98-107); Creatinine Clr Calc Pharmacy 56.4246; Globulin 3.6 g/dL (1.3-4.6); Glomerular Filtration Rate 65.2 mL/min (90-130); Glucose 218 mg/dL (65-115); NT Pro B Type Natriuretic Pept 18521 pg/mL (0-125); Osmolality Calculated 303 mOsm/kg (285-295); Potassium 3.5 mmol/L (3.5-5.1); Sodium 143 mmol/L (136-145); Thyroid Stimulating Hormone 0.51 uIU/mL (0.27-4.20); Total Bilirubin 0.4 mg/dL (0.15-1.2); Total Protein 8.3 g/dL (6.6-8.7)
[2025-01-29 11:54] LABS: D Dimer 1.89 ug/mLFEU (0-0.59)
[2025-01-29 11:55] LABS: Troponin(5th) Baseline 194 ng/L (0-10)
[2025-01-29 12:01] LABS: Lactic Sepsis W/Reflex 7.7 mmol/L (0.5-2.2)
[2025-01-29 12:09] LABS: Procalcitonin 0.06 ng/mL (0-0.5)
--- NOTE | 2025-01-29 12:44 | ECG_ITS ---
[email or web address] Test Date: 2025-01-29 Pat Name: Anjali Murrell Department: Room: Gender: Female Admitting Counselor: : 1970 Requested By: Stephen Sequeira Order Number: [id number] Olinda MD: Jose Manuel Brar M.D. Measurements Intervals [place] Rate: 102 P: 84 PA: 132 QRS: 95 QRSD: 112 T: 258 QT: 378 QTc: 494 Interpretive Statements SINUS TACHYCARDIA POSSIBLE RIGHT ATRIAL ENLARGEMENT [0.25mV P-WAVE] POSSIBLE LEFT ATRIAL ENLARGEMENT [-0.1mV P-WAVE IN V1/V2] BORDERLINE RIGHT AXIS DEVIATION [QRS AXIS > 90] POSSIBLE INFERIOR MYOCARDIAL INFARCTION , OF INDETERMINATE AGE [30 ms Q WAVE IN II/aVF] MODERATE T-WAVE ABNORMALITY, CONSIDER LATERAL ISCHEMIA [-0.1+ mV T-WAVE IN I/aVL/V5/V6] Compared to ECG 01/29/2025 10:35:52 No significant changes Electronically Signed On 01-30-2025 07:46:25 CDT by Jose Manuel Brar M.D. [email or web address]
--- NOTE | 2025-01-29 13:15 | CTR_ITS ---
PROCEDURE INFORMATION: Exam: CTA Chest With Contrast Exam date and time: 01/29/2025 1:50 PM Age: 54 years old Clinical indication: Other: Resp failure; Additional info: Resp failure, high dimer, vasculopath, cannot feel radial pulses, different BP in each arm--please TECHNIQUE: Imaging protocol: Computed tomographic angiography of the chest with contrast. Exam focused on the arteries. 3D rendering (Not supervised by radiologist): MIP and/or 3D reconstructed images were created by the technologist. Radiation optimization: All CT scans at this facility use at least one of these dose optimization techniques: automated exposure control; mA and/or kV adjustment per patient size (includes targeted exams where dose is matched to clinical indication); or iterative reconstruction. Contrast material: OMNI 350; Contrast volume: 100 ml; Contrast route: INTRAVENOUS (IV); COMPARISON: CT angio chest PE protcl [id number] 06/19/2024 5:38 PM RADIATION DOSE METRICS: Total DLP (mGy-cm): 200.29 FINDINGS: Pulmonary arteries: Normal. No pulmonary emboli. Vascular: The thoracic aorta is normal in caliber. There is moderate to extensive diffuse atherosclerotic calcification of the abdominal aorta and proximal great vessels. There is extensive coronary arterial calcification. There is atherosclerotic calcification of the visualized proximal superior mesenteric artery and to a lesser extent the proximal celiac axis. Similar findings were seen on the prior study. Lungs: There is bilateral lower lobe consolidation as well as bilateral upper lobe consolidation and scattered patchy infiltrates throughout the remainder of the lungs. These findings have markedly progressed since the prior study. Pleural spaces: There are moderate-sized bilateral pleural effusions, right larger than left, new since the prior study. Heart: Normal in size. No cardiomegaly. No pericardial effusion. Lymph nodes: There are several mildly enlarged mediastinal lymph nodes, the largest in the precarinal and subcarinal spaces measuring up to 12 mm short axis. There is probable bilateral hilar lymphadenopathy, suboptimally evaluated as the consolidation abuts the hilar regions bilaterally. Bones/joints: There is dextroscoliosis of the thoracic spine. Mild degenerative changes are noted. Soft tissues: Unremarkable. CT/CT angio chest PE protcl [id number] IMPRESSION: 1. Multifocal pneumonia with marked interval progression since June 19, 2024. 2. Moderate bilateral pleural effusions, right greater than left, new since the prior study. 3. Moderate to extensive atherosclerotic calcification involving the thoracic aorta, proximal great vessels, coronary arteries, and visualized upper abdominal arteries. These findings are advanced for the patient's age. 4. No pulmonary embolism detected.
[2025-01-29 13:22] LABS: Reflex Lactate Order REFLEX LACTIC ORDERD
[2025-01-29 13:41] LABS: ABG PCO2 58.7 mmHg (35-45); ABG PH Result 7.39 (7.35-7.45); Alveolar-Arterial Oxygen Gradi 53.3 mmHg (5-10); Arterial Blood Gas Hematocrit 35.1 % (37-47); Base Excess ABG 8.4 mmol/L (-2.0-2.0); Blood Gas Allen Test Pos; Blood Gas Operator Identificat WALCI; Blood Gas Sample Site Brachial, right; Blood Gas Sample Type Arterial; Carboxyhemoglobin 0.9 %THgb (0.4-20.1); HCO3 ABG 35.1 mmol/L (22-26); HGB O2 Sat 82.4 % (95-100); Ionized Calcium Level - ABG 1.2 mmol/L (1.1-1.4); Methemoglobin 1.2 % (0.4-1.5); Oxygen Device BIPAP; Oxygen Saturation ABG 84.2; PO2 ABG 53.4 mmHg (80.0-100.0); PO2 FiO2 Ratio Arterial Blood 71; Potassium Level - ABG 3.4 mmol/L (3.5-5.0); Total Hemoglobin 11.4 g/dL (12-16)
[2025-01-29 13:53] LABS: Troponin 5 2HR 464.2 ng/L (0-10); Troponin 5 2HR Delta 270.2 ABS# (0-10)
[2025-01-29] MEDS: iohexol 350 mg/mL 500 mL Btl (per mL) IV (14:02)
[2025-01-29] MEDS: sodium chloride 0.9% 1,000 ML 999 ML IV (14:13)
[2025-01-29] MEDS: piperacillin-tazobactam 3.375 GM in sodium chloride 0.9% (plus) 50 ML IV (14:14)
[2025-01-29] MEDS: VANCOMYCIN ADD-Vantage 750 MG in 0.9% NaCl ADD-Vantage 250 ML 250 MG IV (14:20)
[2025-01-29] MEDS: heparin 5,000 unit/mL INJ 1 mL IVP (14:24)
[2025-01-29] MEDS: heparin drip 25,000 UNIT/500 ML PREMIX 14 UNIT IV (14:25)
[2025-01-29] MEDS: EPINEPHrine 2.5 MG in sodium chloride 0.9% 250 ML 6.06 MG IV (15:26)
[2025-01-29] MEDS: ipratropium-albuterol 3 mL Neb INHALATION (16:04)
[2025-01-29] MEDS: norepinephrine 4 MG/250 ML BAG 30 MG IV (16:19)
--- NOTE | 2025-01-29 16:29 | PM.HP ---
Providers/Chief Complaint Primary Care Provider: ABA Mejia Chief Complaint: chest pain - SOB History of Present Illness Anjali Murrell is a 54 year old female with past medical history of COPD, hypertension, congestive heart failure stage IV, non-ST elevation DC post PCI, occlusion of superior mesenteric artery presents to the ER today because of difficulty in breathing and chest pain since last night. Chest pain is dull in nature getting worse on taking a deep breath. In the ER she was found to have hypoxia down to 70% for which she was placed on a BiPAP. Patient was not able to tolerate BiPAP ventilation and had a PEA cardiac arrest. Patient had 25 minutes of ACLS protocol chest compressions. Patient was able to achieve ROSC. She was maintained on epi of 10. After being having ROSC for around 10 minutes patient went into PEA cardiac arrest again and had second round of ACLS protocol chest compressions for 10 minutes. Patient finally achieved ROSC. Currently she is on epinephrine of 10 with heart rate of 180s. No recordable blood pressure. Pulses are dopplerable. Patient was cardioverted after which her heart rates were down to 120s. Epinephrine was weaned off and she was transitioned to 20 of Levophed and 0.4 of vasopressin. She was placed on propofol and fentanyl. Patient continued to have soft blood pressures. Repeat ABG showed metabolic acidosis, hypoxia on 100% FiO2. Patient continued to remain hypotensive on maximum vasopressors. Review of Systems General: Reports: ROS unobtainable due to endotracheal tube Medications/Allergies Home Medications ?Medication ?Instructions ?Recorded ?Confirmed ?Last Taken ?Type nitroglycerin 0.4 mg sublingual 0.4 mg sublingual Q5M PRN chest 12/17/19 01/29/25 08/13/24 Rx tablet pain #25 tabs sertraline 50 mg tablet 50 mg PO DAILY 06/21/24 01/29/25 08/13/24 History trazodone 50 mg tablet 50 mg PO BEDTIME 06/21/24 01/29/25 08/13/24 History cholecalciferol (vitamin D3) 125 125 mcg PO Q7D 08/13/24 01/29/25 08/11/24 History mcg (5,000 unit) tablet (Vitamin D3) furosemide 40 mg tablet 40 mg PO DAILY 08/13/24 01/29/25 08/13/24 History levothyroxine 75 mcg tablet 75 mcg PO DAILY 08/13/24 01/29/25 08/13/24 History losartan 25 mg tablet 12.5 mg PO DAILY 08/13/24 01/29/25 08/13/24 History aspirin 81 mg chewable tablet 81 mg PO DAILY #30 tabs 08/17/24 01/29/25 Unknown Rx atorvastatin 80 mg tablet 80 mg PO DAILY #30 tabs 08/17/24 01/29/25 Unknown Rx clopidogrel 75 mg tablet 75 mg PO DAILY #30 tabs 08/17/24 01/29/25 Unknown Rx metoprolol succinate 25 mg 25 mg PO DAILY #30 tabs 08/17/24 01/29/25 Unknown Rx tablet,extended release 24 hr potassium chloride 8 mEq 8 meq PO DAILY #7 tabs 08/26/24 01/29/25 Unknown Rx tablet,extended release (Klor-Con) gabapentin 100 mg capsule 100 mg PO BEDTIME 01/29/25 01/29/25 Unknown History Allergies Allergy/AdvReac Type Severity Reaction Status Date / Time No Known Allergies Allergy Verified 08/26/24 13:44 PFSH Acute PFSH: Medical History CHF (congestive heart failure), NYHA class IV Chest pain Acute ischemic left [employer] stroke Atrial fibrillation Peripheral arterial disease Coronary artery disease CKD (chronic kidney disease) Subclinical hypothyroidism Non-ST elevated myocardial infarction 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 Atherosclerosis of [place] arteries of extremities with intermittent claudication, right leg Arteriosclerosis of both carotid arteries Hypertension Aortic arch atherosclerosis Anxiety and depression Mixed hyperlipidemia Asthma Patent ductus arteriosus Heart disease Surgical History Hx of bilateral cataract extraction Family History Other CAD (coronary artery disease) Cancer Chronic kidney disease (CKD) Diabetes Family history of premature coronary artery disease Hypertension Lung disease Stroke Denies family history of Clotting disorder Dementia Hyperlipidemia Psychiatric illness Suicide Anesthesia complication Bleeding disorder Social History Smoking and tobacco/nicotine status: never used tobacco/nicotine Second hand smoke exposure: No Alcohol intake: former Substance/Drug Use: current Substance/Drug use frequency: few times a month Adopted: No Caregiver/support person: Yes Lives independently: Yes Household members: spouse Housing: House Marital status: Number of children: 0 Highest education level completed: High School Graduate service: No Current occupational status: unemployed Current occupational exposures/hazards: No Pets and animals: Yes Sexually active: Yes Do you think of yourself as: Straight/Heterosexual Current gender identity: Female Special ran needs: No Agree to transfusion: Yes Vitals/I&O/Wt Last Vital Signs Temp 97.5 F L 01/29/25 10:42 Pulse 131 H 01/29/25 16:00 Resp 30 H 01/29/25 16:00 BP 169/129 01/29/25 14:16 Pulse Ox 83 L 01/29/25 15:10 O2 Del Method Mechanical Ventilation 01/29/25 16:00 FiO2 100 01/29/25 16:00 01/29/25 01/29/25 01/29/25 06:59 14:59 22:59 Intake Total 0 / 0 Balance 0 / 0 Weight last 48 hrs Weight 49.895 kg Physical Exam Narrative: General: Intubated, sedated HEENT: PERRLA, pupils bilaterally equal and reactive Chest: Bilateral bronchial breath is all over lung redman, coarse tremor present diffuse all over lung redman right more than left CVS: S1-S2 regular, no murmurs, tachycardia, no gallops, no rubs Abdomen: Soft, nontender, no organomegaly, bowel sounds present Neuro: Intubated and sedated Quick SOFA Score: Respiratory Rate: 28 Blood Pressure: 169/129 Camila Coma Scale: 15 qSOFA Score: 1 If qSOFA score 2 or greater, continue: PaO2/FiO2 Ratio (mmHg): 71 Blood Pressure Mean: 98 Epinephrine Current Rate (?g/kg/min): 2.5 Norepinephrine Current Rate (?g/kg/min): 12 Bilirubin (mg/dl): 0.4 Platelets (x10?/ml): 360 Creatinine (mg/dl): 0.9 SOFA Score: 8 Evaluation: Current stage of sepsis: septic shock Sepsis stage criteria used: [facility] Sep-1 and Sepsis-3 Crystalloid fluids: 30 mL/kg crystalloid fluids ordered and initiated within 3 hours Blood cultures ordered: Yes Possible source: pulmonary Focused Exam: Vital signs: Temp Pulse Resp BP Pulse Ox O2 Del Method FiO2 01/29/25 16:00 131 H 01/29/25 16:00 128 H 30 H Mechanical Ventila tion 100 01/29/25 15:56 142 H 01/29/25 15:50 116 H 01/29/25 15:47 28 H 100 01/29/25 15:45 186 H 01/29/25 15:35 82 01/29/25 15:25 88 01/29/25 15:20 110 H 01/29/25 15:16 154 H 01/29/25 15:10 83 L 01/29/25 15:05 95 82 L 01/29/25 15:01 56 L 93 01/29/25 14:55 62 97 01/29/25 14:50 94 01/29/25 14:46 132 H 18 01/29/25 14:40 128 H 25 H 85 L 01/29/25 14:35 130 H 25 H 93 01/29/25 14:31 133 H 24 H 01/29/25 14:25 130 H 34 H 93 01/29/25 14:20 118 H 32 H 95 01/29/25 14:16 123 H 28 H 169/129 94 01/29/25 14:10 123 H 34 H 169/129 94 01/29/25 14:05 121 H 28 H 169/129 93 01/29/25 14:01 122 H 33 H 169/129 95 01/29/25 13:55 179/137 01/29/25 13:50 179/137 01/29/25 13:46 109 H 29 H 179/137 96 01/29/25 13:40 107 H 25 H 169/77 93 01/29/25 13:35 104 H 27 H 169/77 85 L 01/29/25 13:34 110 H 86 L 75 01/29/25 13:31 104 H 25 H 169/77 88 L 01/29/25 13:25 104 H 26 H 150/89 88 L 01/29/25 13:20 106 H 29 H 150/89 87 L 01/29/25 13:16 102 H 24 H 150/89 82 L 01/29/25 13:10 100 23 H 163/111 88 L 01/29/25 13:05 102 H 24 H 163/111 90 01/29/25 13:01 101 H 26 H 163/111 90 01/29/25 12:55 103 H 27 H 169/70 92 01/29/25 12:50 103 H 27 H 169/70 92 01/29/25 12:45 103 H 27 H 169/80 92 01/29/25 12:40 104 H 25 H 169/80 92 01/29/25 12:36 105 H 25 H 169/80 93 01/29/25 12:30 102 H 26 H 156/81 93 01/29/25 12:25 101 H 24 H 156/81 95 01/29/25 12:21 102 H 27 H 156/81 96 01/29/25 12:15 94 21 H 172/78 93 01/29/25 12:10 96 24 H 172/78 92 01/29/25 12:06 96 27 H 172/78 96 01/29/25 12:00 103 H 27 H 164/72 97 01/29/25 11:55 102 H 28 H 164/72 97 01/29/25 11:51 98 28 H 164/72 97 01/29/25 11:45 100 28 H 184/59 98 01/29/25 11:40 101 H 28 H 184/59 100 01/29/25 11:36 106 H 27 H 184/59 99 01/29/25 11:30 104 H 24 H 98 01/29/25 11:25 103 H 34 H 95 01/29/25 11:21 103 H 27 H 97 01/29/25 11:15 108 H 23 H 93 01/29/25 11:13 107 H 28 H 93 01/29/25 10:54 109 H 96 75 01/29/25 10:42 97.5 F L 129 H 24 H 97/81 76 L 01/29/25 10:28 97.5 F L 129 H 24 H 97/81 76 L Date exam was performed: 01/29/25 Time exam was performed: 18:12 Sepsis Screen No Definite Risk 01/29/25 16:00 01/29/25 Respiratory Rate 28 breaths/min H (12 - 18) 01/29/25 17:03 01/29/25 Blood Pressure 169/129 mmHg 01/29/25 14:16 01/29/25 Camila Coma Scale Score 15 01/29/25 10:42 01/29/25 Quick SOFA Score 1 01/29/25 17:51 01/29/25 SOFA Score: ABG PO2/FiO2 Ratio 71 01/29/25 13:29 01/29/25 Camila Coma Scale Score 15 01/29/25 10:42 01/29/25 Blood Pressure Mean 98 mmHg 01/29/25 15:41 01/29/25 Epinephrine Current Rate 2.5 01/29/25 16:36 01/29/25 Norepinephrine Current Rate 12 01/29/25 16:36 01/29/25 Total Bilirubin 0.4 mg/dL (0.15-1.2) 01/29/25 11:00 01/29/25 Platelet Count 360 10^3/cmm (157-399) 01/29/25 11:00 01/29/25 Creatinine 0.9 mg/dL (0.5-0.9) 01/29/25 11:00 01/29/25 SOFA Score 8 01/29/25 17:51 01/29/25 Data 01/29/25 11:00 01/29/25 11:00 Micro: Microbiology 01/29/25 11:30 Blood Culture - Preliminary Blood SPECIMEN COLLECTED 01/29/25 11:25 Blood Culture - Preliminary Blood SPECIMEN COLLECTED A&P Assessment and plan (1) Cardiac arrest: (2) Septic shock: (3) Respiratory failure: (4) Multifocal pneumonia: (5) Non-ST elevated myocardial infarction: (6) Elevated lactic acid level: (7) Arteriosclerotic cardiovascular disease: (8) Occlusion of superior mesenteric artery: (9) Subclinical hypothyroidism: (10) CHF (congestive heart failure), NYHA class IV: (11) Goals of care, counseling/discussion: Plan 54-year-old with history of CAD, SMA occlusion, COPD, hypertension presented to the ER with difficulty breathing and chest pain. Was in hypoxic respiratory failure with concerns for non-ST elevation DC. Started on heparin drip and placed on BiPAP ventilation. Patient had a PEA cardiac arrest x 2. Overall had a CPR of around 40 minutes. Patient is on high vasopressor support with Levophed of 20 and vasopressin of 0.4. Maintain mean blood pressure 65 as possible. Currently blood pressures of 60-70 systolic. Stat CBC, CMP, lactate, ABG, chest x-ray, INR, troponin cycle. Oxygen supplementation keeping saturation was 65%. Sedation with propofol and fentanyl. Check blood culture, sputum culture, urinalysis, urine culture. Check respiratory viral panel. Start on IV vancomycin and meropenem. Pulmicort twice daily, DuoNeb every 6 hour. ABG done shows significant metabolic acidosis. 150 mEq of sodium bicarb followed by sodium bicarb drip at 75 cc/h. OG tube placement. Aspirin 75 mg one-time followed by 81 mg daily. Stat echocardiogram. Heparin drip. Cardiology has been consulted from ER. Hold off on antihypertensive. Anesthesia: Propofol, fentanyl Glycemic control: Not needed. Hypoglycemia protocol Nutrition: NPO. If remains intubated for next 48 hours will start on tube feeds CODE STATUS: Full code. Will discuss further with patient's family members once available at bedside PUD prophylaxis: Protonix twice daily DVT prophylaxis: Heparin drip to be sufficient for DVT prophylaxis Discharge planning: Depending on clinical improvement Admit to ICU This documentation was created by [employer] mainspring former software. Every effort was made to ensure accuracy of mainspring former. Any obvious errors or omissions should be clarified with the author of the document. Detailed goals of care discussions were done with patient's mother, has been Mr. Singh at bedside. We discussed unfortunately patient has a long 2 episodes of CPR. Currently she is on high doses of vasopressors and her blood pressures are difficult to maintain. She is on 100% maximum ventilator support with saturations mostly in 80s. Discussed there is a high chance of patient would develop multiorgan failure and mortality. Unfortunately even if she survives there is a high risk that she would not go back to her baseline quality of life and will have poor quality of life going forward. states at baseline patient is DNR/DNI and would not have wanted to have a poor quality of life and would rather want to go peacefully. We discussed options of continuing current treatment to see how she responds versus transition to hospice. Given patient has a high chances of mortality and even if she survives there is a high chance of poor quality of life has been decided to go ahead and transition patient to hospice. Plan: Will extubate. Hold off on any further sedative medication, vasopressors. Hold off on IV antibiotics and heparin drip. Transition to comfort care. Admit to [facility] PDMP PDMP Reviewed: Not Reviewed Attestations Medical Necessity Statement*: Requires admission for more than 2 midnights for hospice care in a patient admitted for cardiac arrest, respiratory failure in setting of bilateral multifocal pneumonia, non-ST elevation DC Critical Care Time: The high probability of a clinically significant, sudden or life threatening deterioration of the patient's [cardiac, pulmonary, renal, ID, neurological] system(s) required my full and direct attention, intervention and personal management. The critical care time is as shown. This time is in addition to time spent performing any reported procedures but includes the following: [x] Data and vital sign review and interpretation [x] Patient assessment, examination and intervention [x] Documentation [x] Medication orders and management Critical Care Time (min): 90 Coding Level of Care Code Critical Care >/= 30 minutes Critical care time (in minutes): 90 The high probability of a clinically significant, sudden or life threatening deterioration, as referenced in this documentation, required my full and direct attention, intervention and personal management. The critical care time shown is in addition to time spent performing any reported separately billable procedures and includes the following: [x] Data and vital sign review and interpretation [x] Patient assessment, examination and intervention [x] Medication orders and management [x] Patient/Family updates as able [x] Care Coordination and Documentation. Other Coding Information This patient has a high probability of clinically significant, sudden or life threatening deterioration of the patient's (neurological/pulmonary/cardiac/renal/ID/endocrine) systems required my full, direct attention, the highest level of physician preparedness for urgent intervention and personal management. I managed/supervised life or organ supporting interventions that required frequent physician assessment. I devoted my full attention in the ICU to the direct care of this patient for the period of time indicated above. Time I spent with family or surrogate(s) is included only if the patient was incapable of providing necessary information or participating in decision making. This time includes the following services provided: Telemetry review Mechanical Ventilation Hemodynamic interpretation, assessment and management Review and interpretation of CXR Review and interpretation of lab values Review and interpretation of microbiologic data and culture results Review of medications and administration Review and interpretation of Nutrition requirements and management Discussion of management with other consultants and services Clinical update to family members Diagnoses Cardiac arrest I46.9 Septic shock A41.9; R65.21 Respiratory failure J96.90 Multifocal pneumonia J18.9 Non-ST elevated myocardial infarction I21.4 Elevated lactic acid level R79.89 Arteriosclerotic cardiovascular disease I25.10 Occlusion of superior mesenteric artery K55.069 Subclinical hypothyroidism E03.8 CHF (congestive heart failure), NYHA class IV I50.9 Goals of care, counseling/discussion Z71.89
[2025-01-29] MEDS: propofol 1,000 MG/100 ML INJ 1.5 MG IV (16:34)
--- NOTE | 2025-01-29 16:43 | ECG_ITS ---
[facility] Test Date: 2025-01-29 Pat Name: Anjali Murrell Department: Room: Gender: Female Director New Product: : 1970 Requested By: Stephen Sequeira Order Number: [id number] Olinda MD: Jose Manuel Brar M.D. Measurements Intervals [place] Rate: 122 P: 70 OK: 219 QRS: 107 QRSD: 121 T: -83 QT: 341 QTc: 487 Interpretive Statements SINUS TACHYCARDIA WITH FIRST DEGREE AV BLOCK WITH FREQUENT VENTRICULAR PREMATURE COMPLEXES RIGHT AXIS DEVIATION [QRS AXIS > 100] RIGHT BUNDLE BRANCH BLOCK [120+ ms QRS DURATION, UPRIGHT V1, 40+ ms S IN I/aVL/V4/V5/V6] MODERATE T-WAVE ABNORMALITY, CONSIDER LATERAL ISCHEMIA [-0.1+ mV T-WAVE IN I/aVL/V5/V6] MODERATE T-WAVE ABNORMALITY, CONSIDER INFERIOR ISCHEMIA [-0.1+ mV T-WAVE IN II/aVF] Compared to ECG 01/29/2025 12:44:26 Possible ischemia still present Electronically Signed On 01-30-2025 07:46:06 CDT by Jose Manuel Brar M.D. [email or web address]
[2025-01-29 16:47] LABS: ABG PCO2 54.6 mmHg (35-45); Alveolar-Arterial Oxygen Gradi 4.9 mmHg (5-10); Arterial Blood Gas Hematocrit 28.8 % (37-47); Base Excess ABG -13.5 mmol/L (-2.0-2.0); Blood Gas Allen Test Pos; Blood Gas Operator Identificat CAK; Blood Gas Sample Site Brachial, right; Blood Gas Sample Type Arterial; Carboxyhemoglobin 0.8 %THgb (0.4-20.1); HCO3 ABG 16.1 mmol/L (22-26); HGB O2 Sat 57.8 % (95-100); Methemoglobin 0.8 % (0.4-1.5); Oxygen Device VENT; Oxygen Saturation ABG 58.7; PO2 ABG 45.4 mmHg (80.0-100.0); Potassium Level - ABG 3.3 mmol/L (3.5-5.0); Total Hemoglobin 9.4 g/dL (12-16)
[2025-01-29 16:49] LABS: ABG PH Result 7.08 (7.35-7.45)
[2025-01-29] MEDS: fentaNYL 1,000 MCG/100 ML BAG 2.5 MCG IV (16:50)
--- NOTE | 2025-01-29 17:01 | PHA.VACGOAL ---
Vancomycin Goal - Goal Vancomycin Goal:: 15-20 mg/L Vancomycin Indication:: Pneumonia - Therapy Current therapy:: Meropenem Day of therpy:: Day 1 of [] . Actual body weight (kg): 110 lb - Data Labs: WBC 18.92 10^3/uL (3.29-11.43) H 01/29/25 11:00 RBC 4.44 10^6/uL (3.85-5.65) 01/29/25 11:00 Hgb 11.30 g/dL (11.27-16.99) 01/29/25 11:00 Hct 37.7 % (36-47) 01/29/25 11:00 MCV 84.9 fl (85-98) L 01/29/25 11:00 MCH 25.5 pg (27-33) L 01/29/25 11:00 MCHC 30.0 g/dL (30-55) 01/29/25 11:00 RDW 16.4 % (12.1-15.1) H 01/29/25 11:00 Sodium 143 mmol/L (136-145) 01/29/25 11:00 Potassium 3.5 mmol/L (3.5-5.1) 01/29/25 11:00 Chloride 96 mmol/L (98-107) L 01/29/25 11:00 Carbon Dioxide 26 mmol/L (22-29) 01/29/25 11:00 Anion Gap 24.5 (5-19) H 01/29/25 11:00 BUN 15 mg/dL (6-20) 01/29/25 11:00 Creatinine 0.9 mg/dL (0.5-0.9) 01/29/25 11:00 GFR Calculation 65.2 mL/min (90-130) L 01/29/25 11:00 Last dialysis session:: N/A Treatment plan:: new consult Regimen:: 750 MG LOADING DOSE GIVEN IN ER MAINTENANCE DOSE OF 500 MG Q12H PER DOSING PROTOCOL Follow up:: WILL CONTINUE TO MONITOR AND FOLLOW UP DAILY
--- NOTE | 2025-01-29 17:03 | PM.CONSULT ---
Providers/Reason For Consult Consulting Physician/Specialty*: JU Holley MD/cardiology Reason for Consult*: Patient with chest pain, elevated troponin T, history of atherosclerotic heart diseas Requesting Physician: Dr. Humphrey/Dr. Caraballo Attending Physician: Dr. Camacho Primary Care Provider: ABA Mejia History of Present Illness History of Present Illness Anjali Murrell is a 54 year old female, brought to the emergency room by EMS for complaints of shortness of breath, hypoxia and chest pain. She was found to have elevated troponin T with significant delta. Cardiology consult is requested for further cardiac evaluation recommendations. The images from the /family remains and from medical records. Patient is currently intubated and is on a ventilator. This patient apparently been having upper respiratory infection symptoms for the last several days along with her . Last night, she started having epigastric pain, radiating to both sides of the chest associate with belching. Initially it was thought that her symptoms are related to stomach. However because of the worsening symptoms, there has been called the EMS this morning and was brought to the emergency room. Patient was found to have features of multilobar pneumonia with a moderate pleural effusion bilaterally by CT of the chest. Her initial troponin T was 194 which went up to 460 2:04 hours. Her EKG showed diffuse nonspecific ST-T changes and sinus tachycardia. While being in the emergency room, patient went into respiratory distress followed by PEA. ACLS protocol was initiated. She had 2 sessions of prolonged CPR, for a total duration of around 40 minutes. She had an episode of ventricular tachycardia while being on epinephrine drip which was successfully cardioverted. Currently she remains intubated. She appears to be in atrial fibrillation with rapid ventricular rate with a heart rate in the 120s. She is on multiple vasopressors and the blood pressure is in the 130s This patient has a history of extensive vascular disease involving the aortic arch vessels, mesenteric , renal and lower extremity vessels. She had multiple coronary angiograms in the past. Most recently, she underwent coronary angiogram in August of last year and had PCI of the ostial lesion of the circumflex artery. The intervention was technically challenging because of the heavily calcified and relatively small vessels. 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 Mild disease in the left and descending artery and left main. Currently she seems to be afebrile. She is on 100% oxygen. The and the family wants to keep her only on comfort care Review of Systems Narrative: CONSTITUTIONAL: Recent upper respiratory infection symptoms EYES: No blurring of vision or other visual disturbances lately. ENT: No hoarseness of voice, auditory disturbances or sore throat. CARDIOVASCULAR: As mentioned above. RESPIRATORY: Cough and shortness of breath. History of reactive airway disease GASTROINTESTINAL: History of mesenteric artery disease GENITOURINARY: No dysuria or hematuria. INTEGUMENTARY: No skin rashes or history of skin cancer. NEURO: No history for CVA PSYCHIATRIC: No history of psychosis or major depression. HEMATOLOGIC: No bleeding disorders or significant anemia. ENDOCRINE: No history of polyuria or polydipsia. MUSCULOSKELETAL: No recent joint pain or swelling. ALLERGY/IMMUNOLOGY: As mentioned above. Medications/Allergies Home Medications ?Medication ?Instructions ?Recorded ?Confirmed ?Last Taken ?Type nitroglycerin 0.4 mg sublingual 0.4 mg sublingual Q5M PRN chest 12/17/19 01/29/25 08/13/24 Rx tablet pain #25 tabs sertraline 50 mg tablet 50 mg PO DAILY 06/21/24 01/29/25 08/13/24 History trazodone 50 mg tablet 50 mg PO BEDTIME 06/21/24 01/29/25 08/13/24 History cholecalciferol (vitamin D3) 125 125 mcg PO Q7D 08/13/24 01/29/25 08/11/24 History mcg (5,000 unit) tablet (Vitamin D3) furosemide 40 mg tablet 40 mg PO DAILY 08/13/24 01/29/25 08/13/24 History levothyroxine 75 mcg tablet 75 mcg PO DAILY 08/13/24 01/29/25 08/13/24 History losartan 25 mg tablet 12.5 mg PO DAILY 08/13/24 01/29/25 08/13/24 History aspirin 81 mg chewable tablet 81 mg PO DAILY #30 tabs 08/17/24 01/29/25 Unknown Rx atorvastatin 80 mg tablet 80 mg PO DAILY #30 tabs 08/17/24 01/29/25 Unknown Rx clopidogrel 75 mg tablet 75 mg PO DAILY #30 tabs 08/17/24 01/29/25 Unknown Rx metoprolol succinate 25 mg 25 mg PO DAILY #30 tabs 08/17/24 01/29/25 Unknown Rx tablet,extended release 24 hr potassium chloride 8 mEq 8 meq PO DAILY #7 tabs 08/26/24 01/29/25 Unknown Rx tablet,extended release (Klor-Con) gabapentin 100 mg capsule 100 mg PO BEDTIME 01/29/25 01/29/25 Unknown History Allergies Allergy/AdvReac Type Severity Reaction Status Date / Time No Known Allergies Allergy Verified 08/26/24 13:44 Current Medications Generic Name Dose Route Start Last Admin Trade Name Wilber PRN Reason Stop Dose Admin Heparin Sodium/Sodium Chloride 25,000 unit in 500 mls @ 0 mls/hr 01/29/25 13:30 01/29/25 14:25 Heparin Drip IV 14.03 unit/kg/hr CONT ROHIT 14 mls/hr Administration Protocol Per Protocol Epinephrine HCl 2.5 mg/ Sodium 252.5 mls @ 0 mls/hr 01/29/25 15:15 01/29/25 16:38 Chloride IV 0 mcg/min .Q0M ROHIT 0 mls/hr Titration Protocol Per Protocol Norepinephrine Bitartrate 4 mg in 250 mls @ 0 mls/hr 01/29/25 16:00 01/29/25 16:46 Levophed IV 12 mcg/min .Q0M ROHIT 45 mls/hr Titration Protocol Per Protocol Propofol 1,000 mg in 100 mls @ 0 mls/hr 01/29/25 16:30 01/29/25 16:34 Diprivan IV 5 mcg/kg/min .Q0M ROHIT 1.5 mls/hr Administration Protocol Per Protocol Fentanyl 1,000 mcg in 100 mls @ 0 mls/hr 01/29/25 16:30 01/29/25 16:50 Sublimaze IV 25 mcg/hr .Q0M ROHIT 2.5 mls/hr Administration Protocol Per Protocol PFSH Acute PFSH: Medical History CHF (congestive heart failure), NYHA class IV Chest pain 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 ischemic left 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 Atrial fibrillation Peripheral arterial disease Coronary artery disease CKD (chronic kidney disease) Subclinical hypothyroidism Non-ST elevated myocardial infarction 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 Atherosclerosis of [place] arteries of extremities with intermittent claudication, right leg Arteriosclerosis of both carotid arteries Hypertension Aortic arch atherosclerosis Anxiety and depression Mixed hyperlipidemia Asthma Patent ductus arteriosus Heart disease Surgical History Hx of bilateral cataract extraction Family History Other CAD (coronary artery disease) Cancer Chronic kidney disease (CKD) Diabetes Family history of premature coronary artery disease Hypertension Lung disease Stroke Denies family history of Clotting disorder Dementia Hyperlipidemia Psychiatric illness Suicide Anesthesia complication Bleeding disorder Social History Smoking and tobacco/nicotine status: never used tobacco/nicotine Second hand smoke exposure: No Alcohol intake: former Substance/Drug Use: current Substance/Drug use frequency: few times a month Adopted: No Caregiver/support person: Yes Lives independently: Yes Household members: spouse Housing: House Marital status: Number of children: 0 Highest education level completed: High School Graduate service: No Current occupational status: unemployed Current occupational exposures/hazards: No Pets and animals: Yes Sexually active: Yes Do you think of yourself as: Straight/Heterosexual Current gender identity: Female Special ran needs: No Agree to transfusion: Yes Vitals/I&O/Wt Last Vital Signs Temp 97.5 F L 01/29/25 10:42 Pulse 131 H 01/29/25 16:00 Resp 30 H 01/29/25 16:00 BP 169/129 01/29/25 14:16 Pulse Ox 83 L 01/29/25 15:10 O2 Del Method Mechanical Ventilation 01/29/25 16:00 FiO2 100 01/29/25 16:00 01/29/25 01/29/25 01/29/25 06:59 14:59 22:59 Intake Total 0 / 0 1071.897 / 1071.897 Balance 0 / 0 1071.897 / 1071.897 Weight last 48 hrs Weight 110 lb Physical Exam Narrative: GENERAL: The patient is intubated . Opening eyes spontaneously. HEENT: No significant pallor, icterus or lymphadenopathy.Oral cavity: There are no mucous membrane lesions. NECK: Trachea appears to be central. No masses noted. No JVD or thyromegaly appreciated. RESPIRATORY: Breath sounds are bilaterally with scattered expiratory wheezing and occasional coarse crackles. Diminished intensity of breath sounds in the bases BREASTS: Deferred. HEART: The heart sounds are normal. No S3 or S4. No significant murmurs. No pericardial rub ABDOMEN: No vessel pulsations or distention. No tenderness. No organomegaly appreciated. Bowel sounds are normally heard. : Deferred. RECTAL: Deferred. LYMPHATIC: No lymphadenopathy noted in the neck. EXTREMITIES: Relatively cold extremities. Dorsalis pedis and posterior pulses are nonpalpable bilaterally MUSCULOSKELETAL: No acute joint deformities or swelling SKIN: There are no significant rashes or ecchymosis NEUROPSYCHIATRIC: The patient is intubated . Opens her eyes spontaneously Data 01/29/25 11:00 01/29/25 11:00 Other Labs: Laboratory Last Values WBC 18.92 10^3/uL (3.29-11.43) H 01/29/25 11:00 RBC 4.44 10^6/uL (3.85-5.65) 01/29/25 11:00 Hgb 11.30 g/dL (11.27-16.99) 01/29/25 11:00 Hct 37.7 % (36-47) 01/29/25 11:00 MCV 84.9 fl (85-98) L 01/29/25 11:00 MCH 25.5 pg (27-33) L 01/29/25 11:00 MCHC 30.0 g/dL (30-55) 01/29/25 11:00 RDW 16.4 % (12.1-15.1) H 01/29/25 11:00 Plt Count 360 10^3/cmm (157-399) 01/29/25 11:00 MPV 9.6 fL (7.4-10.4) 01/29/25 11:00 Neut % (Auto) 92.1 % 01/29/25 11:00 Lymph % (Auto) 4.0 % 01/29/25 11:00 [place] % (Auto) 3.0 % 01/29/25 11:00 Eos % (Auto) 0.1 % 01/29/25 11:00 Baso % (Auto) 0.3 % 01/29/25 11:00 Neut # (Auto) 17.45 10^3/uL (1.8-7.7) H 01/29/25 11:00 Lymph # (Auto) 0.8 10^3/uL (0.8-4.8) 01/29/25 11:00 [place] # (Auto) 0.6 10^3/uL (0.2-0.9) 01/29/25 11:00 Eos # (Auto) 0.0 10^3/uL (0.0-0.8) 01/29/25 11:00 Baso # (Auto) 0.1 10^3/uL (0.0-0.1) 01/29/25 11:00 Nucleated RBC % (auto) 0 % 01/29/25 11:00 Nucleated RBCs # 0.0 /100WBC 01/29/25 11:00 PT 12.60 SECONDS (12.1-14.9) 01/29/25 11:00 INR 0.89 (0.8-1.2) 01/29/25 11:00 APTT 24.6 SECONDS (23.9-36.7) 01/29/25 11:00 D-Dimer 1.89 ug/mLFEU (0-0.59) H 01/29/25 11:00 Specimen Type Arterial 01/29/25 16:36 Sample Site Brachial, right 01/29/25 16:36 ABG pH 7.08 (7.35-7.45) L* 01/29/25 16:36 ABG pCO2 54.6 mmHg (35-45) H 01/29/25 16:36 ABG pO2 45.4 mmHg (80.0-100.0) L 01/29/25 16:36 ABG PO2/FiO2 Ratio 71 01/29/25 13:29 ABG HCO3 16.1 mmol/L (22-26) L 01/29/25 16:36 ABG O2 Saturation 58.7 01/29/25 16:36 ABG Base Excess -13.5 mmol/L (-2.0-2.0) L 01/29/25 16:36 Hunter Test Pos 01/29/25 16:36 A-a O2 Gradient 4.9 mmHg (5-10) L 01/29/25 16:36 Hematocrit 28.8 % (37-47) L 01/29/25 16:36 Hgb O2 Saturation 57.8 % (95-100) L 01/29/25 16:36 Carboxyhemoglobin 0.8 %THgb (0.4-20.1) 01/29/25 16:36 Methemoglobin 0.8 % (0.4-1.5) 01/29/25 16:36 Total Hemoglobin 9.4 g/dL (12-16) L 01/29/25 16:36 Sodium 149.0 mmol/L (131-143) H 01/29/25 16:36 Potassium 3.3 mmol/L (3.5-5.0) L 01/29/25 16:36 Glucose 165.0 mg/dL (70-115) H 01/29/25 16:36 Ionized Calcium 1.0 mmol/L (1.1-1.4) L 01/29/25 16:36 O2 Delivery Device Vent 01/29/25 16:36 O2 Liters/Min 15.0 % 01/29/25 10:36 FiO2 75.0 % 01/29/25 13:29 Tidal Volume 0.40 01/29/25 16:36 PEEP 6.0 cmH20 01/29/25 16:36 Student Success Coach ID Cak 01/29/25 16:36 Sodium 143 mmol/L (136-145) 01/29/25 11:00 Potassium 3.5 mmol/L (3.5-5.1) 01/29/25 11:00 Chloride 96 mmol/L (98-107) L 01/29/25 11:00 Carbon Dioxide 26 mmol/L (22-29) 01/29/25 11:00 Anion Gap 24.5 (5-19) H 01/29/25 11:00 BUN 15 mg/dL (6-20) 01/29/25 11:00 Creatinine 0.9 mg/dL (0.5-0.9) 01/29/25 11:00 GFR Calculation 65.2 mL/min (90-130) L 01/29/25 11:00 Glucose 218 mg/dL (65-115) H 01/29/25 11:00 Calculated Osmolality 303 mOsm/kg (285-295) H 01/29/25 11:00 Lactic Acid 7.7 mmol/L (0.5-2.2) H* 01/29/25 11:30 Lactic Acid (Sepsis) 4.0 mmol/L (0.5-2.2) H 01/29/25 13:24 Calcium 9.2 mg/dL (8.5-10.5) 01/29/25 11:00 Total Bilirubin 0.4 mg/dL (0.15-1.2) 01/29/25 11:00 AST 23 U/L (0-32) 01/29/25 11:00 ALT 12 U/L (0-33) 01/29/25 11:00 Alkaline Phosphatase 109 U/L (35-105) H 01/29/25 11:00 Troponin T Baseline 194 ng/L (0-10) H* 01/29/25 11:00 Troponin T 120 Minute 464.2 ng/L (0-10) H 01/29/25 13:24 Delta Troponin T 270.2 ABS# (0-10) H* 01/29/25 13:24 NT-Pro-B Natriuret Pep 64759 pg/mL (0-125) H 01/29/25 11:00 Total Protein 8.3 g/dL (6.6-8.7) 01/29/25 11:00 Albumin 4.7 g/dL (3.5-5.2) 01/29/25 11:00 Globulin 3.6 g/dL (1.3-4.6) 01/29/25 11:00 Procalcitonin 0.06 ng/mL (0-0.5) 01/29/25 11:00 TSH 0.51 uIU/mL (0.27-4.20) 01/29/25 11:00 Micro: Microbiology 01/29/25 11:30 Blood Culture - Preliminary Blood SPECIMEN COLLECTED 01/29/25 11:25 Blood Culture - Preliminary Blood SPECIMEN COLLECTED Other data: Cardiac catheterization on 09/02/2024 08/14/24: Coronary angiography: It was a difficult engagement due to small and calcified aorta plus patient has severe peripheral vascular disease therefore left common femoral artery approach was adopted #1 Left main is short with luminal irregularity without significant stenosis #2 LAD has luminal irregularity without significant stenosis #3 Left circumflex has high-grade severe ostial stenosis it is a small to moderate caliber vessel, groove circumflex and obtuse marginal has a mid moderate stenosis but those are small caliber vessel not amenable to intervention #4 RCA has eccentric takeoff difficult engage as patent previously placed stent in proximal to mid segment without significant in-stent restenosis, there appeared to be proximal 40 to50% stenosis not appear to be significant. ARGELIA x 1 to the ostial left circumflex A&P Assessment and plan (1) Cardiac arrest with pulseless electrical activity: Currently patient is on norepinephrine and vasopressin. Telemetry shows sinus tach with intermittent atrial fibrillation The family has decided for just comfort care only (2) Acute non-ST elevation myocardial infarction (NSTEMI): Possibility of restenosis of the circumflex/RCA are considerations. EKG changes are nonspecific. (3) Multifocal pneumonia: The pneumonia is complicated with moderate bilateral pleural effusion. (4) Respiratory failure with hypoxia: Poss related to both the heart failure and multilobar pneumonia complicated with the pleural effusion Qualifiers: Chronicity: acute Qualified Code(s): J96.01 - Acute respiratory failure with hypoxia (5) Vascular disease or syndrome: Patient has extensive vascular disease involving the aortic arch vessels, possible right subclavian stenosis, renal artery stenosis mesenteric artery disease/inferior mesenteric occlusion/renal artery stenosis/stenosis in the lower extremity vessels. (6) Acute on chronic heart failure: Ischemia and the pneumonia are contributing factors Qualifiers: Heart failure type: unspecified Qualified Code(s): I50.9 - Heart failure, unspecified Plan The family wants only comfort measures May continue on the current measures Patient's prognosis is very poor PDMP PDMP Reviewed: Not Reviewed Consult Attestations Medical Necessity Statement: Deferred to the primary Coding Level of Care Code 47718 Diagnoses Cardiac arrest with pulseless electrical activity I46.9 Acute non-ST elevation myocardial infarction (NSTEMI) I21.4 Multifocal pneumonia J18.9 Acute respiratory failure with hypoxia J96.01 Chronicity: acute Vascular disease or syndrome I99.9 Acute on chronic heart failure, unspecified heart failure type I50.9 Heart failure type: unspecified
[2025-01-29] MEDS: vasopressin 40 UNIT/100 ML PREMIX IV (17:05)
--- NOTE | 2025-01-29 17:14 | ECG_ITS ---
[employer] Interactive Test Date: 2025-01-29 Pat Name: Anjali Murrell Department: Room: Gender: Female Pt Skilled: : 1970 Requested By: Stephen Sequeira Order Number: [id number] Prakash MD: Jose Manuel Brar M.D. Measurements Intervals [place] Rate: 155 P: 0 NH: 0 QRS: -70 QRSD: 131 T: 104 QT: 330 QTc: 531 Interpretive Statements ATRIAL FIBRILLATION WITH RAPID VENTRICULAR RESPONSE RIGHT BUNDLE BRANCH BLOCK [120+ ms QRS DURATION, UPRIGHT V1, 40+ ms S IN I/aVL/V4/V5/V6] LEFT ANTERIOR FASCICULAR BLOCK [QRS AXIS <= -45, QR IN I, RS IN II] VOLTAGE CRITERIA FOR LVH [MEETS CRITERIA IN ONE OF: R(aVL), S(V1), R(V5), R(V5/V6)+S(V1)] ST DEVIATION AND MODERATE T-WAVE ABNORMALITY, CONSIDER LATERAL ISCHEMIA [-0.1+ mV T-WAVE IN I/aVL/V5/V6] Compared to ECG 01/29/2025 12:44:26 Right bundle-branch block now present T-wave abnormality still present Possible ischemia still present Electronically Signed On 01-30-2025 07:39:51 CDT by Jose Manuel Brar M.D. [email or web address] [id number]
--- NOTE | 2025-01-29 18:25 | PC.NURSE ---
MTS contacted on patient expiration at this time she is placed on a hold. Hunter Nguyen [facility] was contacted. Patient family is at the bedside at this time.
--- NOTE | 2025-01-29 19:50 | PC.NURSE ---
Ezio time 194
--- NOTE | 2025-01-29 20:26 | PC.NURSE ---
95ml of propofol and 85ml of fentanyl wasted with ADRIEL Alfaro.
--- NOTE | 2025-01-29 23:37 | PC.NURSE ---
MTS called & said patient will not be a donor and we are free to release the body to the home. [facility] has also released.
== END 2025-01-29 19:45 | disposition home or self-care (01) ==
PROVIDERS: Emergency Provider Emergency Medicine; PCP Nurse Practitioner
DX: J18.8 Other pneumonia, unspecified organism (principal); I46.9 Cardiac arrest, cause unspecified; I21.4 Non-ST elevation (NSTEMI) myocardial infarction; J96.90 Respiratory failure, unspecified, unspecified whether with hypoxia or hypercapnia; R65.20 Severe sepsis without septic shock; Z79.02 Long term (current) use of antithrombotics/antiplatelets; Z79.82 Long term (current) use of aspirin; E78.2 Mixed hyperlipidemia; I25.10 Atherosclerotic heart disease of native coronary artery without angina pectoris; I13.0 Hypertensive heart and chronic kidney disease with heart failure and stage 1 through stage 4 chronic kidney disease, or unspecified chronic kidney disease; N18.9 Chronic kidney disease, unspecified; I50.9 Heart failure, unspecified
CPT/HCPCS: 31500; 36415; 36600; 71045; 71275; 80051; 80053; 82330; 82803; 82805; 83605; 83880; 84145; 84443; 84484; 85025; 85378; 85610; 85730; 87040; 87070; 87205; 93005; 94002; 94640; 94660; 94799; 96365; 96366; 96367; 96375; 99291; 99292; J0171; J1644; J2543; J2598; J2704; J3010; J3370; J7030; J7050; J9999